=== PATIENT | male | born 1950 | race Caucasian/White ===

== ENCOUNTER → 2017-01-17 | Outpatient (CLI) | payer MEDICARE, OTHER ==
[~2017-01-17] MED LIST: /AMIO20TA PO; /LINE60TA PO; /METO25TAB PO; /PANT40TA PO; ACET50TA PO; ACETAMINOPHEN PO; ALDA25TA2 PO; BISAC5TA PO; CARA1TAB2 PO; DEMA20TA PO; HYDROCODONE PO; LEVO175T PO; LEVO200T3 PO; META800T82 PO; METAPKT PO; MOBI15TA PO; NORCOBULK PO; TYLE325T5 PO; XARE15TA PO; lortab
[2017-01-17 18:16] LABS: CREATININE FOR GFR 1.67 MG/DL (0.70-1.30)
== END ==
LOC: M LAB 16:18
PROVIDERS: ATTEND Podiatrist Foot & Ankle Surgery
DX: Z01.818 Encounter for other preprocedural examination (principal); M79.671 Pain in right foot

== ENCOUNTER → 2017-01-18 | Outpatient (CLI) | payer MEDICARE, OTHER ==
--- NOTE | 2017-01-18 16:11 | REP ---
MRI RIGHT FOOT WITHOUT AND WITH CONTRAST: 01/18/2017. Clinical history: Right foot pain and swelling laterally and dorsally. Evaluate for gout versus stress fracture or other. No known injury. No prior study. Technique: Axial T1 and fat suppressed T1, T2 STIR, sagittal T2 STIR and coronal T1 and T2 STIR sequences. After infusion of 13 ml of ProHance (one half-dose due to GFR of 44), fat suppressed T1 axial and coronal images were then obtained. Findings: There is subcutaneous edema particularly dorsally and laterally in the entire foot. There is also edema around the fifth toe and the distal plantar aspect of the foot from MTP joints into the toes. On the STIR images, the marrow signal in the distal tibia, fibula, talus, calcaneus and the tarsal bones is unremarkable. Subtalar joints are intact. The marrow signal in the T1 images show no evidence for edema or fracture line. There is no compelling evidence for stress fracture on any of these sequences. No abnormal enhancement of marrow that would suggest osteomyelitis. However, there is enhancement in the periosteal regions about the metatarsals, the third, fourth and fifth digital ray and some enhancement of capsule around tarsal articulations. I do not see erosions that would definitely suggest gout or erosive arthritis. The toe images are not optimal. There is no compelling evidence for abscess. Impression: 1. Extensive subcutaneous edema of the dorsal and lateral midfoot and distal forefoot with plantar edema over the metatarsal phalangeal joints and into the toes. Edema also along the midfoot adjacent to the shafts of the metatarsals three through five. No definite stress fracture, destructive lesion, osteomyelitis, abscess or other fluid collection. The edema may reflect some cellulitis or other inflammatory process. No definite erosive change or gout. Signed by Eduardo Phillips MD 01/18/2017 05:10 P
== END ==
LOC: M RAD 12:41
PROVIDERS: ATTEND Podiatrist Foot & Ankle Surgery
DX: M79.671 Pain in right foot (principal)
CPT/HCPCS: 73720; A9576

== ENCOUNTER → 2017-01-24 | Outpatient (CLI) | payer MEDICARE, OTHER | LOC: M LAB 14:40 | PROVIDERS: ATTEND Podiatrist Foot & Ankle Surgery | DX: M10.071 Idiopathic gout, right ankle and foot (principal) ==

== ENCOUNTER → 2017-05-06 | Outpatient (REF) | payer MEDICARE, OTHER ==
[2017-05-06 20:04] LABS: BILIRUBIN,TOTAL 0.4 MG/DL (0.2-1.0); CREATININE FOR GFR 1.6 MG/DL (0.70-1.30); FREE T4 1.25 NG/DL (0.76-1.46); GLOMERULAR FILTRATION RATE 46.3 (>49); URIC ACID 10.5 MG/DL (3.5-7.2)
[2017-05-06 20:24] LABS: MEAN CORPUSCULAR HEMOGLOBIN 29.3 pg (27.0-33.0); MEAN CORPUSCULAR HGB CONC 32.4 g/dl (32.0-36.5); MEAN CORPUSCULAR VOLUME 90.5 fl (80.0-96.0); RED CELL DISTRIBUTION WIDTH 13.9 % (11.5-14.5); WHITE BLOOD COUNT 7.3 K/mm3 (4.0-10.0)
== END ==
LOC: M SFHCADAM 11:35
PROVIDERS: ATTEND Family Medicine
DX: N18.3 Chronic kidney disease, stage 3 (moderate) (principal); E03.9 Hypothyroidism, unspecified; E78.2 Mixed hyperlipidemia; M19.90 Unspecified osteoarthritis, unspecified site

== ENCOUNTER → 2017-06-28 | Outpatient (CLI) | payer MEDICARE, OTHER ==
[2017-06-28 10:13] LABS: MEAN CORPUSCULAR HEMOGLOBIN 29.3 pg (27.0-33.0); MEAN CORPUSCULAR HGB CONC 33.4 g/dl (32.0-36.5); MEAN CORPUSCULAR VOLUME 87.5 fl (80.0-96.0); RED CELL DISTRIBUTION WIDTH 13.7 % (11.5-14.5); WHITE BLOOD COUNT 10.1 K/mm3 (4.0-10.0)
[2017-06-28 10:41] LABS: ALBUMIN 3.5 GM/DL (3.2-5.2); CREATININE FOR GFR 1.52 MG/DL (0.70-1.30); FREE T4 1.39 NG/DL (0.76-1.46); GLOMERULAR FILTRATION RATE 49.1 (>49); PHOSPHORUS LEVEL 3.3 MG/DL (2.5-4.9); POTASSIUM SERUM 3.8 MEQ/L (3.5-5.1); URIC ACID 6.3 MG/DL (3.5-7.2)
== END ==
LOC: M LAB 09:25
PROVIDERS: ATTEND Family Medicine
DX: E03.9 Hypothyroidism, unspecified (principal); M10.00 Idiopathic gout, unspecified site

== ENCOUNTER → 2017-07-01 | Outpatient (CLI) | payer MEDICARE, OTHER ==
--- NOTE | 2017-07-01 15:55 | REP ---
Digital diagnostic bilateral mammography with CAD and focused left breast sonography: History: 66-year-old male patient with a history of left breast mass times 6 weeks. The patient gives an additional history of left breast nipple bleeding 10 years ago resulting in surgery. Mammographic findings: A skin marker is affixed to the skin at the site of the palpable lump and CC MLO and true MLO views of left breast were obtained. Routine CC and MLO views of the right breast were obtained. On the right there is a heterogeneous pattern of fibroglandular tissue in the retroareolar region consistent with moderate gynecomastia of the right breast. No right breast mass lesion is seen. No spiculation or microcalcification is observed. No worrisome skin change is seen on the right. There are normal appearing fat replaced lymph nodes in each axilla. On the left however, there is a spiculated 2.8 cm mass in the retroareolar region of the left breast. On magnified focal spot compression ML and on MLO views there is the suggestion of nipple inversion and periareolar skin thickening. No suspicious microcalcification is observed. Sonographic findings: The left breast is examined in the retroareolar region. A hypoechoic spiculated mass is seen measuring 2.7 x 2.6 x 1.7 cm with irregular margins and acoustic shadowing. Impression: BIRADS category four suspicious left breast imaging. Spiculated 2.8 cm mass in the retroareolar region. Infiltrating ductal carcinoma suspected. A radial scar may be a possibility given the history of remote prior breast surgery. Ultrasound-guided needle biopsy is recommended. BIRADS category II benign right breast mammogram showing evidence of gynecomastia. This mammogram was interpreted with the aid of an FDA-approved computer-aided detection system. The patient states he a clinical breast exam in June 2017. The patient letter being requested is M4. Signed by Kodak Clifford MD 07/01/2017 04:39 P
== END ==
LOC: M RAD 14:03
PROVIDERS: ATTEND Family Medicine
DX: N63 Unspecified lump in breast (principal)
CPT/HCPCS: 76642; G0204

== ENCOUNTER → 2017-08-02 | Outpatient (REF) | payer MEDICARE, OTHER ==
[2017-08-02 12:40] LABS: MEAN CORPUSCULAR HEMOGLOBIN 28.7 pg (27.0-33.0); MEAN CORPUSCULAR HGB CONC 31.5 g/dl (32.0-36.5); MEAN CORPUSCULAR VOLUME 91.1 fl (80.0-96.0); RED CELL DISTRIBUTION WIDTH 14.6 % (11.5-14.5); WHITE BLOOD COUNT 10.9 10^3/uL (4.0-10.0)
[2017-08-02 13:56] LABS: CALCIUM LEVEL 9.2 MG/DL (8.8-10.2); CREATININE FOR GFR 1.53 MG/DL (0.70-1.30); FREE T4 1.55 NG/DL (0.76-1.46); GLOMERULAR FILTRATION RATE 48.7 (>49); POTASSIUM SERUM 4.2 MEQ/L (3.5-5.1)
== END ==
LOC: M SFHCADAM 09:45
PROVIDERS: ATTEND Family Medicine
DX: I50.9 Heart failure, unspecified (principal); F43.22 Adjustment disorder with anxiety

== ENCOUNTER → 2017-08-16 | Outpatient (CLI) | payer MEDICARE, OTHER ==
[2017-08-16 13:20] LABS: CALCIUM LEVEL 9.2 MG/DL (8.8-10.2); CREATININE FOR GFR 1.74 MG/DL (0.70-1.30)
== END ==
LOC: M LAB 12:06
PROVIDERS: ATTEND Family Medicine
DX: I50.9 Heart failure, unspecified (principal)

== ENCOUNTER → 2017-09-05 | Outpatient (CLI) | payer MEDICARE, OTHER ==
[2017-09-05 12:56] LABS: CALCIUM LEVEL 8.9 MG/DL (8.8-10.2); CREATININE FOR GFR 1.44 MG/DL (0.70-1.30); GLOMERULAR FILTRATION RATE 52.3 (>49); POTASSIUM SERUM 3.9 MEQ/L (3.5-5.1)
== END ==
LOC: M LAB 11:58
PROVIDERS: ATTEND Family Medicine
DX: I50.9 Heart failure, unspecified (principal)

== ENCOUNTER → 2017-09-08 | Outpatient (REF) | payer MEDICARE, OTHER | LOC: M LAB REF 16:55 | PROVIDERS: ATTEND Internal Medicine Nephrology | DX: N39.0 Urinary tract infection, site not specified (principal) ==

== ENCOUNTER 2017-10-25 12:41 | Emergency (ER) | payer MEDICARE, OTHER ==
[2017-10-25] MEDS: NS 1,000 ML IV (14:30)
[2017-10-25] MEDS: methylPREDNISolone INJ 125 MG/2 ML VIAL (J2930) IV (14:30)
== END 2017-10-25 16:31 | disposition home or self-care (01) ==
LOC: M ED 12:41
DX: R42 Dizziness and giddiness (principal); T45.1X5A Adverse effect of antineoplastic and immunosuppressive drugs, initial encounter; I12.9 Hypertensive chronic kidney disease with stage 1 through stage 4 chronic kidney disease, or unspecified chronic kidney disease; Z79.01 Long term (current) use of anticoagulants; N18.3 Chronic kidney disease, stage 3 (moderate); C61 Malignant neoplasm of prostate; Z87.891 Personal history of nicotine dependence
CPT/HCPCS: J2930

== ENCOUNTER → 2017-11-25 | Outpatient (CLI) | payer MEDICARE, OTHER | LOC: M CARPUL 10:28 | DX: I50.30 Unspecified diastolic (congestive) heart failure (principal); Z92.21 Personal history of antineoplastic chemotherapy | CPT/HCPCS: 93306 ==

== ENCOUNTER → 2017-12-12 | Outpatient (REF) | payer MEDICARE, OTHER ==
[2017-12-12 12:42] LABS: ANION GAP 9 MEQ/L (8-16); BLOOD UREA NITROGEN 28 MG/DL (7-18); CALCIUM LEVEL 8.4 MG/DL (8.8-10.2); CARBON DIOXIDE LEVEL 28 MEQ/L (21-32); CHLORIDE LEVEL 104 MEQ/L (98-107); CREATININE FOR GFR 1.58 MG/DL (0.70-1.30); GLOMERULAR FILTRATION RATE 46.8 (>49); GLUCOSE, FASTING 143 MG/DL (70-100); POTASSIUM SERUM 3.6 MEQ/L (3.5-5.1); SODIUM LEVEL 141 MEQ/L (136-145)
== END ==
LOC: M SFHCADAM 11:14
DX: Z79.899 Other long term (current) drug therapy (principal); I50.9 Heart failure, unspecified
CPT/HCPCS: 80048

== ENCOUNTER → 2017-12-15 | Outpatient (CLI) | payer MEDICARE, OTHER | LOC: M ONCR 10:04 | DX: C50.922 Malignant neoplasm of unspecified site of left male breast (principal) | CPT/HCPCS: G0463 ==

== ENCOUNTER 2018-01-05 09:29 | Outpatient (RCR) | payer MEDICARE, OTHER | END 2018-01-21 | LOC: M ONCR 09:29 | DX: C50.122 Malignant neoplasm of central portion of left male breast (principal) | CPT/HCPCS: 77300 ==

== ENCOUNTER → 2018-01-05 | Outpatient (CLI) | payer MEDICARE, OTHER | LOC: M RAD 09:23 | DX: C50.922 Malignant neoplasm of unspecified site of left male breast (principal) ==

== ENCOUNTER 2018-01-23 10:53 | Outpatient (RCR) | payer MEDICARE, OTHER | END 2018-02-20 | LOC: M ONCR 10:53 | DX: C50.122 Malignant neoplasm of central portion of left male breast (principal) | CPT/HCPCS: 77336 ==

== ENCOUNTER → 2018-02-08 | Outpatient (REF) | payer MEDICARE, OTHER ==
[2018-02-08 19:52] LABS: HEMATOCRIT 33.7 % (42.0-52.0); HEMOGLOBIN 10.2 g/dl (13.5-17.5); MEAN CORPUSCULAR HEMOGLOBIN 28.3 pg (27.0-33.0); MEAN CORPUSCULAR HGB CONC 30.3 g/dl (32.0-36.5); MEAN CORPUSCULAR VOLUME 93.6 fl (80.0-96.0); PLATELET COUNT, AUTOMATED 272 10^3/uL (150-450); RED CELL DISTRIBUTION WIDTH 17.9 % (11.5-14.5); WHITE BLOOD COUNT 7.7 10^3/uL (4.0-10.0)
[2018-02-08 20:13] LABS: ALBUMIN 3.5 GM/DL (3.2-5.2); ALBUMIN/GLOBULIN RATIO 0.88 (1.00-1.93); ALKALINE PHOSPHATASE 64 U/L (45-117); ALT/SGPT 19 U/L (12-78); ANION GAP 9 MEQ/L (8-16); AST/SGOT 13 U/L (7-37); BILIRUBIN,TOTAL 0.3 MG/DL (0.2-1.0); BLOOD UREA NITROGEN 34 MG/DL (7-18); CALCIUM LEVEL 8.6 MG/DL (8.8-10.2); CARBON DIOXIDE LEVEL 29 MEQ/L (21-32); CHLORIDE LEVEL 103 MEQ/L (98-107); CREATININE FOR GFR 1.56 MG/DL (0.70-1.30); GLOMERULAR FILTRATION RATE 47.5 (>49); GLUCOSE, FASTING 88 MG/DL (70-100); NT-PRO BNP 605 PG/ML (<125); POTASSIUM SERUM 3.9 MEQ/L (3.5-5.1); SODIUM LEVEL 141 MEQ/L (136-145); TOTAL PROTEIN 7.5 GM/DL (6.4-8.2)
== END ==
LOC: M SFHCADAM 16:45
DX: R06.09 Other forms of dyspnea (principal)
CPT/HCPCS: 80053

== ENCOUNTER → 2018-02-09 | Outpatient (CLI) | payer MEDICARE, OTHER | LOC: M RAD 14:46 | DX: M53.3 Sacrococcygeal disorders, not elsewhere classified (principal); Z85.3 Personal history of malignant neoplasm of breast; R06.09 Other forms of dyspnea; M51.36 Other intervertebral disc degeneration, lumbar region; J84.9 Interstitial pulmonary disease, unspecified | CPT/HCPCS: 71046 ==

== ENCOUNTER 2018-02-21 14:18 | Outpatient (RCR) | payer MEDICARE, OTHER | END 2018-03-02 15:24 | disposition other institution (70) | LOC: M ONCR 14:18 | DX: C50.122 Malignant neoplasm of central portion of left male breast (principal) ==

== ENCOUNTER 2018-03-06 14:36 | Outpatient (RCR) | payer MEDICARE, OTHER | END 2018-03-23 | LOC: M ONCR 03-07 14:36 | DX: C50.122 Malignant neoplasm of central portion of left male breast (principal) | CPT/HCPCS: 77300 ==

== ENCOUNTER → 2018-03-15 | Outpatient (REF) | payer MEDICARE, OTHER ==
[2018-03-15 12:31] LABS: HEMATOCRIT 33.3 % (42.0-52.0); HEMOGLOBIN 10.2 g/dl (13.5-17.5); MEAN CORPUSCULAR HEMOGLOBIN 28.9 pg (27.0-33.0); MEAN CORPUSCULAR HGB CONC 30.6 g/dl (32.0-36.5); MEAN CORPUSCULAR VOLUME 94.3 fl (80.0-96.0); PLATELET COUNT, AUTOMATED 366 10^3/uL (150-450); RED BLOOD COUNT 3.53 10^6/uL (4.30-6.10); RED CELL DISTRIBUTION WIDTH 15.5 % (11.5-14.5); WHITE BLOOD COUNT 7.5 10^3/uL (4.0-10.0)
[2018-03-15 13:09] LABS: ALBUMIN 3.3 GM/DL (3.2-5.2); ALKALINE PHOSPHATASE 70 U/L (45-117); ALT/SGPT 33 U/L (12-78); ANION GAP 7 MEQ/L (8-16); AST/SGOT 19 U/L (7-37); BILIRUBIN,TOTAL 0.3 MG/DL (0.2-1.0); BLOOD UREA NITROGEN 29 MG/DL (7-18); CALCIUM LEVEL 8.8 MG/DL (8.8-10.2); CARBON DIOXIDE LEVEL 30 MEQ/L (21-32); CHLORIDE LEVEL 104 MEQ/L (98-107); CREATININE FOR GFR 1.49 MG/DL (0.70-1.30); GLOMERULAR FILTRATION RATE 50.1 (>49); GLUCOSE, FASTING 128 MG/DL (70-100); POTASSIUM SERUM 4.2 MEQ/L (3.5-5.1); SODIUM LEVEL 141 MEQ/L (136-145); TOTAL PROTEIN 7.4 GM/DL (6.4-8.2)
== END ==
LOC: M SFHCADAM 10:07
DX: N39.0 Urinary tract infection, site not specified (principal); I50.9 Heart failure, unspecified
CPT/HCPCS: 80053

== ENCOUNTER → 2018-04-19 | Outpatient (REF) | payer MEDICARE, OTHER ==
[2018-04-19 13:01] LABS: HEMOGLOBIN 10.8 g/dl (13.5-17.5); MEAN CORPUSCULAR HEMOGLOBIN 28.2 pg (27.0-33.0); MEAN CORPUSCULAR HGB CONC 30.9 g/dl (32.0-36.5); MEAN CORPUSCULAR VOLUME 91.4 fl (80.0-96.0); PLATELET COUNT, AUTOMATED 250 10^3/uL (150-450); RED BLOOD COUNT 3.83 10^6/uL (4.30-6.10); RED CELL DISTRIBUTION WIDTH 15.9 % (11.5-14.5); WHITE BLOOD COUNT 7.7 10^3/uL (4.0-10.0)
[2018-04-19 13:24] LABS: VITAMIN B12 LEVEL 546 PG/ML (247-911)
[2018-04-19 13:25] LABS: FOLATE 20.9 NG/ML (>5.4)
[2018-04-19 13:29] LABS: ALBUMIN 3.4 GM/DL (3.2-5.2); ALBUMIN/GLOBULIN RATIO 0.83 (1.00-1.93); ALKALINE PHOSPHATASE 66 U/L (45-117); ALT/SGPT 23 U/L (12-78); ANION GAP 7 MEQ/L (8-16); AST/SGOT 13 U/L (7-37); BILIRUBIN,TOTAL 0.3 MG/DL (0.2-1.0); BLOOD UREA NITROGEN 38 MG/DL (7-18); CALCIUM LEVEL 8.4 MG/DL (8.8-10.2); CARBON DIOXIDE LEVEL 29 MEQ/L (21-32); CHLORIDE LEVEL 104 MEQ/L (98-107); CREATININE FOR GFR 1.66 MG/DL (0.70-1.30); FREE T4 1.26 NG/DL (0.76-1.46); GLOMERULAR FILTRATION RATE 44.2 (>49); GLUCOSE, FASTING 114 MG/DL (70-100); POTASSIUM SERUM 4.3 MEQ/L (3.5-5.1); SODIUM LEVEL 140 MEQ/L (136-145); TOTAL PROTEIN 7.5 GM/DL (6.4-8.2)
== END ==
LOC: M SFHCADAM 10:53
DX: E03.9 Hypothyroidism, unspecified (principal); R53.83 Other fatigue
CPT/HCPCS: 82746

== ENCOUNTER → 2018-04-27 | Outpatient (CLI) | payer MEDICARE, OTHER | LOC: M ONCR 13:22 | DX: C61 Malignant neoplasm of prostate (principal) | CPT/HCPCS: G0463 ==

== ENCOUNTER → 2018-04-27 | Outpatient (CLI) | payer MEDICARE, OTHER | LOC: M RAD 13:50 | DX: N18.3 Chronic kidney disease, stage 3 (moderate) (principal); Z87.440 Personal history of urinary (tract) infections | CPT/HCPCS: 76775 ==

== ENCOUNTER → 2018-05-02 | Outpatient (CLI) | payer MEDICARE, OTHER | LOC: M PLARAD 11:25 | DX: C79.9 Secondary malignant neoplasm of unspecified site (principal); Z85.3 Personal history of malignant neoplasm of breast; N13.30 Unspecified hydronephrosis; K80.00 Calculus of gallbladder with acute cholecystitis without obstruction; N62 Hypertrophy of breast | CPT/HCPCS: 78816 ==

== ENCOUNTER → 2018-05-26 | Outpatient (CLI) | payer MEDICARE, OTHER | LOC: M RAD 12:21 | DX: H53.9 Unspecified visual disturbance (principal) | CPT/HCPCS: 93880 ==

== ENCOUNTER → 2018-06-05 | Outpatient (CLI) | payer MEDICARE, OTHER ==
[~2018-06-05] MED LIST changes: -/AMIO20TA PO; -/LINE60TA PO; -/METO25TAB PO; -/PANT40TA PO; -ACET50TA PO; -ACETAMINOPHEN PO; -ALDA25TA2 PO; -BISAC5TA PO; -CARA1TAB2 PO; -DEMA20TA PO; +FUROSEMIDE 20 MG/2 ML VIAL (J1940) As Ordered; -HYDROCODONE PO; -LEVO175T PO; -LEVO200T3 PO; -META800T82 PO; -METAPKT PO; -MOBI15TA PO; -NORCOBULK PO; -TYLE325T5 PO; -XARE15TA PO; -lortab
== END ==
LOC: M RAD 09:42
DX: N13.30 Unspecified hydronephrosis (principal)
CPT/HCPCS: J1940

== ENCOUNTER → 2018-07-18 | Outpatient (CLI) | payer MEDICARE, OTHER | LOC: M RAD 11:02 | DX: N18.3 Chronic kidney disease, stage 3 (moderate) (principal); M10.00 Idiopathic gout, unspecified site; Z90.10 Acquired absence of unspecified breast and nipple; Z85.3 Personal history of malignant neoplasm of breast | CPT/HCPCS: 77065 ==

== ENCOUNTER → 2018-07-18 | Outpatient (CLI) | payer MEDICARE, OTHER ==
[2018-07-18 11:25] LABS: HEMATOCRIT 39.2 % (42.0-52.0); HEMOGLOBIN 12.2 g/dl (13.5-17.5); MEAN CORPUSCULAR HEMOGLOBIN 29.2 pg (27.0-33.0); MEAN CORPUSCULAR HGB CONC 31.1 g/dl (32.0-36.5); MEAN CORPUSCULAR VOLUME 93.8 fl (80.0-96.0); PLATELET COUNT, AUTOMATED 237 10^3/uL (150-450); RED BLOOD COUNT 4.18 10^6/uL (4.30-6.10); RED CELL DISTRIBUTION WIDTH 15.4 % (11.5-14.5); WHITE BLOOD COUNT 7.5 10^3/uL (4.0-10.0)
[2018-07-18 12:20] LABS: ANION GAP 10 MEQ/L (8-16); BLOOD UREA NITROGEN 35 MG/DL (7-18); CALCIUM LEVEL 8.5 MG/DL (8.8-10.2); CARBON DIOXIDE LEVEL 27 MEQ/L (21-32); CHLORIDE LEVEL 103 MEQ/L (98-107); CREATININE FOR GFR 1.77 MG/DL (0.70-1.30); GLOMERULAR FILTRATION RATE 41.1 (>49); GLUCOSE, FASTING 101 MG/DL (70-100); POTASSIUM SERUM 4.6 MEQ/L (3.5-5.1); SODIUM LEVEL 140 MEQ/L (136-145); URIC ACID 5.3 MG/DL (3.5-7.2)
== END ==
LOC: M LAB 10:46
DX: N18.3 Chronic kidney disease, stage 3 (moderate) (principal); M10.00 Idiopathic gout, unspecified site

== ENCOUNTER → 2018-11-13 | Outpatient (CLI) | payer MEDICARE, OTHER ==
[~2018-11-13] MED LIST changes: +/AMIO20TA PO; +/LINE60TA PO; +/METO25TAB PO; +/PANT40TA PO; +ACET50TA PO; +ACETAMINOPHEN PO; +ALDA25TA2 PO; +AMMO12CR4 TOP; +AMOX500C PO; +BENA25CA4 PO; +BISAC5TA PO; +CARA1TAB2 PO; +DEMA20TA PO; +FERR1TAB8 PO; +FERRO SEQUELS PO; -FUROSEMIDE 20 MG/2 ML VIAL (J1940) As Ordered; +GABA-843 PO; +GABA600T4 PO; +HYDR-3716 PO; +HYDROCODONE PO; +LEVO175T PO; +LEVO200T3 PO; +LEVO200T4 PO; +META1TAB22 PO; +META800T82 PO; +METAPKT PO; +METO25TA4 PO; +MOBI15TA PO; +NORCOBULK PO; +PANT40TA3 PO; +PROAAER10 INH; +SILV40CR EXT; +SPIR-10 PO; +SUCR1TAB56 PO; +SYNT50TA PO; +TAMO20TA8 PO; +TORS20TA2 PO; +TYLE325T5 PO; +ULOR80TA PO; +VITA200016 PO; +VITMTA PO; +XARE15TA PO; +lortab
[2018-11-13 14:38] LABS: HEMATOCRIT 43.1 % (42.0-52.0); HEMOGLOBIN 13.4 g/dl (13.5-17.5); MEAN CORPUSCULAR HEMOGLOBIN 29.5 pg (27.0-33.0); MEAN CORPUSCULAR HGB CONC 31.1 g/dl (32.0-36.5); MEAN CORPUSCULAR VOLUME 94.9 fl (80.0-96.0); PLATELET COUNT, AUTOMATED 236 10^3/uL (150-450); RED BLOOD COUNT 4.54 10^6/uL (4.30-6.10); WHITE BLOOD COUNT 8.1 10^3/uL (4.0-10.0)
[2018-11-13 15:19] LABS: BILIRUBIN,TOTAL 0.4 MG/DL (0.2-1.0); CALCIUM LEVEL 8.8 MG/DL (8.8-10.2); CREATININE FOR GFR 1.51 MG/DL (0.70-1.30); GLOMERULAR FILTRATION RATE 49.2 (>49); POTASSIUM SERUM 4.6 MEQ/L (3.5-5.1)
[2018-11-13 15:20] LABS: ALBUMIN 3.8 GM/DL (3.2-5.2); CHOLESTEROL RISK RATIO 4.775 (<5); FREE T4 1.25 NG/DL (0.76-1.46); THYROID STIMULATING HORMONE 3.03 uIU/ML (0.358-3.740); TOTAL PROTEIN 7.8 GM/DL (6.4-8.2)
== END ==
LOC: M LAB 14:15
PROVIDERS: ATTEND Family Medicine
DX: N18.3 Chronic kidney disease, stage 3 (moderate) (principal); Z79.899 Other long term (current) drug therapy

== ENCOUNTER → 2018-12-13 | Outpatient (CLI) | payer MEDICARE, OTHER ==
--- NOTE | 2018-12-14 10:48 | RADONC ---
RADIATION ONCOLOGY FOLLOWUP NOTE DATE: 12/13/2018 CHART NUMBER: [id number] Mr. Quiñones is a patient with a history of both prostatic cancer and left breast cancer was treated this department for left breast cancer which was in the initially staged T2N1M0/ group Stage IIB. He continues to do well after completing his radiotherapy, he denies any nausea, vomiting, sputum production or hemoptysis. His energy level is diminished but he is still able to do day-to-day activities without significantly altering his lifestyle. The remainder of the review of systems is essentially negative as he denies any focal neurologic deficits, headache, respiratory difficulties, cardiac issues, abdominal pain, anxiety or depression. EXAMINATION FINDINGS: The skin within the irradiated volume shows still some hyperpigmentation and subcutaneous fibrosis without masses. There are no masses in the right or the left breast. Lymphatics - no palpable peripheral lymphadenopathy is appreciated in the cervical, supraclavicular, axillary, inguinal lymph node chains. Heart regular without murmurs. Abdomen without evidence of hepatomegaly, masses, deep abdominal tenderness. Extremities without cyanosis, clubbing or edema. IMPRESSION: Clinically CANDI. Status post completion of external beam radiotherapy. The patient wishes to continue followup visit visits with Dr. Audrey Moore. He feels that the visitations here may indeed be repetitious. He will not receive a return appointment at his request. Thank you for allowing us the opportunity of participation in the management of this patient. cc: MD Carolyn Arauz PA Joseph Wetterhahn, MD Jessica Young, MD
== END ==
LOC: M ONCR 09:13
PROVIDERS: ATTEND Radiology Radiation Oncology
DX: C50.922 Malignant neoplasm of unspecified site of left male breast (principal)

== ENCOUNTER → 2019-03-12 | Outpatient (CLI) | payer MEDICARE, OTHER ==
[~2019-03-12] MED LIST changes: -/AMIO20TA PO; -/LINE60TA PO; -/METO25TAB PO; -/PANT40TA PO; -ACET50TA PO; +AMIO1TAB PO; -AMMO12CR4 TOP; +AMMO12CR7 TOP; +KONS100P4 PO; +MAPA500T17 PO; -METAPKT PO; +METO1TAB87 PO; +PROT1TAB2 PO; +ZYVO100T PO
[2019-03-12 19:28] LABS: MAGNESIUM LEVEL 2.4 MG/DL (1.8-2.4)
== END ==
LOC: M LAB 12:53
PROVIDERS: ATTEND Internal Medicine Gastroenterology
DX: Z86.010 Personal history of colon polyps (principal); R10.13 Epigastric pain; K21.0 Gastro-esophageal reflux disease with esophagitis; C61 Malignant neoplasm of prostate

== ENCOUNTER → 2019-03-12 | Outpatient (CLI) | payer MEDICARE, OTHER | LOC: M LAB 12:51 | PROVIDERS: ATTEND Urology | DX: C61 Malignant neoplasm of prostate (principal) ==

== ENCOUNTER → 2019-03-22 | Outpatient (REF) | payer MEDICARE, OTHER ==
[2019-03-22 18:23] LABS: CREATININE FOR GFR 1.58 MG/DL (0.70-1.30); GLOMERULAR FILTRATION RATE 46.7 (>49); POTASSIUM SERUM 4.3 MEQ/L (3.5-5.1)
== END ==
LOC: M SFHCADAM 14:33
PROVIDERS: ATTEND Family Medicine
DX: I50.9 Heart failure, unspecified (principal)
CPT/HCPCS: 80048; 83880; G0463

== ENCOUNTER → 2019-06-29 | Outpatient (REF) | payer MEDICARE, OTHER ==
[2019-06-29 12:51] LABS: HEMATOCRIT 39.9 % (42.0-52.0); HEMOGLOBIN 12.4 g/dl (13.5-17.5); MEAN CORPUSCULAR HEMOGLOBIN 29.5 pg (27.0-33.0); MEAN CORPUSCULAR HGB CONC 31.1 g/dl (32.0-36.5); PLATELET COUNT, AUTOMATED 246 10^3/uL (150-450)
[2019-06-29 13:29] LABS: ALBUMIN 3.4 GM/DL (3.2-5.2); ALT/SGPT 21 U/L (12-78); BILIRUBIN,TOTAL 0.3 MG/DL (0.2-1.0); BLOOD UREA NITROGEN 40 MG/DL (7-18); CALCIUM LEVEL 8.8 MG/DL (8.8-10.2); CARBON DIOXIDE LEVEL 31 MEQ/L (21-32); CHLORIDE LEVEL 105 MEQ/L (98-107); CHOLESTEROL LEVEL 155 MG/DL (<200); CHOLESTEROL RISK RATIO 4.189 (<5); CREATININE FOR GFR 1.49 MG/DL (0.70-1.30); FREE T4 1.14 NG/DL (0.76-1.46); GLOMERULAR FILTRATION RATE 49.9 (>49); GLUCOSE, FASTING 108 MG/DL (70-100); HDL CHOLESTEROL 37 MG/DL (>40); LDL CHOLESTEROL 65 MG/DL (<100); NON-HDL-C 118 MG/DL; POTASSIUM SERUM 4.3 MEQ/L (3.5-5.1); PROSTATIC SPECIFIC AG MONITOR < 0.01 NG/ML (< 4.00); SODIUM LEVEL 141 MEQ/L (136-145); TOTAL PROTEIN 6.5 GM/DL (6.4-8.2); TRIGLYCERIDES LEVEL 265 MG/DL (<150); URIC ACID 5.1 MG/DL (3.5-7.2)
== END ==
LOC: M SFHCADAM 08:05
PROVIDERS: ATTEND Family Medicine
DX: I48.0 Paroxysmal atrial fibrillation (principal); N18.3 Chronic kidney disease, stage 3 (moderate); E03.9 Hypothyroidism, unspecified; E78.2 Mixed hyperlipidemia; M10.00 Idiopathic gout, unspecified site; C61 Malignant neoplasm of prostate
CPT/HCPCS: 80053; 80061; 84153; 84439; 84443; 84550; 85027; G0463

== ENCOUNTER → 2019-07-19 | Outpatient (CLI) | payer MEDICARE, OTHER ==
--- NOTE | 2019-07-19 12:05 | REPMRS ---
Patient History The patient states she had a clinical breast exam in February 2019.Patient has history of cancer in the left breast at age 66, has history of other cancer at age 56, has history of breast cancer, and had previous chemotherapy. Benign lumpectomy of the left breast, 2007. Malignant mastectomy of the left breast. Chemotherapy. Radiation therapy of the left breast. Taking tamoxifen for 1 year. Digital Mammo Screening Bilat: July 19, 2019 - Exam #: [id number] Bilateral CC and MLO view(s) were taken. Technologist: Leesa Oliver, Technologist Prior study comparison: July 18, 2018, right breast digital mammo diagnostic unilateral performed at [facility]. July 01, 2017, left breast digital mammo diagnostic bilateral performed at [facility]. FINDINGS: There are scattered fibroglandular densities. There has been no change in the appearance of the right breast parenchyma in the interval since the prior examination. No mass, architectural distortion, or microcalcific grouping has developed. No suspicious finding. 3-D tomosynthesis shows no additional findings. Assessment: BI-RADS/ACR category 2 mammogram. Benign Findings. Recommendation Routine screening mammogram of the right breast in 1 year. This mammogram was interpreted with the aid of an FDA-approved computer-aided dectection system. Electronically Signed By: Charles Clifford MD 07/19/19 [id number]
== END ==
LOC: M RAD 10:46
PROVIDERS: ATTEND Internal Medicine Medical Oncology
DX: Z12.31 Encounter for screening mammogram for malignant neoplasm of breast (principal); Z85.3 Personal history of malignant neoplasm of breast; Z92.21 Personal history of antineoplastic chemotherapy; Z90.12 Acquired absence of left breast and nipple; Z92.3 Personal history of irradiation

== ENCOUNTER → 2020-04-10 | Outpatient (REF) | payer MEDICARE, OTHER | LOC: M LABDRWAD 12:42 | DX: C61 Malignant neoplasm of prostate (principal) ==

== ENCOUNTER → 2020-04-10 | Outpatient (REF) | payer MEDICARE, OTHER ==
[2020-04-10 13:30] LABS: CREATININE FOR GFR 1.46 MG/DL (0.70-1.30)
== END ==
LOC: M LABDRWAD 12:44
PROVIDERS: ATTEND Physician Assistant
DX: M51.37 Other intervertebral disc degeneration, lumbosacral region (principal); M17.12 Unilateral primary osteoarthritis, left knee; M47.817 Spondylosis without myelopathy or radiculopathy, lumbosacral region

== ENCOUNTER → 2020-05-05 | Outpatient (CLI) | payer MEDICARE, OTHER ==
[~2020-05-05] MED LIST changes: +PANT40TA29 PO; -PANT40TA3 PO; +PROHANCE 279.3MG/ML 15ML VIAL As Ordered ONE; +PROHANCE 279.3MG/ML 5ML VIAL As Ordered ONE
== END ==
LOC: M RAD 04-08 16:48
PROVIDERS: ATTEND Physician Assistant
DX: M51.37 Other intervertebral disc degeneration, lumbosacral region (principal); M47.817 Spondylosis without myelopathy or radiculopathy, lumbosacral region
CPT/HCPCS: 72158; A9576

== ENCOUNTER → 2020-05-06 | Outpatient (REF) | payer MEDICARE, OTHER ==
[~2020-05-06] MED LIST changes: -PROHANCE 279.3MG/ML 15ML VIAL As Ordered ONE; -PROHANCE 279.3MG/ML 5ML VIAL As Ordered ONE
[2020-05-06 19:12] LABS: HEMATOCRIT 42.4 % (42.0-52.0); HEMOGLOBIN 12.5 g/dl (13.5-17.5); MEAN CORPUSCULAR HEMOGLOBIN 27.7 pg (27.0-33.0); MEAN CORPUSCULAR HGB CONC 29.5 g/dl (32.0-36.5); MEAN CORPUSCULAR VOLUME 93.8 fl (80.0-96.0); PLATELET COUNT, AUTOMATED 218 10^3/uL (150-450); RED BLOOD COUNT 4.52 10^6/uL (4.30-6.10); WHITE BLOOD COUNT 8.4 10^3/uL (4.0-10.0)
[2020-05-06 19:54] LABS: ALBUMIN 3.4 GM/DL (3.2-5.2); ALT/SGPT 34 U/L (12-78); BILIRUBIN,TOTAL 0.4 MG/DL (0.2-1.0); BLOOD UREA NITROGEN 33 MG/DL (7-18); CALCIUM LEVEL 8.6 MG/DL (8.8-10.2); CARBON DIOXIDE LEVEL 30 MEQ/L (21-32); CHLORIDE LEVEL 104 MEQ/L (98-107); CHOLESTEROL LEVEL 137 MG/DL (<200); CHOLESTEROL RISK RATIO 3.805 (<5); CREATININE FOR GFR 1.44 MG/DL (0.70-1.30); FREE T4 1.69 NG/DL (0.76-1.46); GLOMERULAR FILTRATION RATE 51.8 (>49); GLUCOSE, FASTING 84 MG/DL (70-100); HDL CHOLESTEROL 36 MG/DL (>40); LDL CHOLESTEROL 62 MG/DL (<100); NON-HDL-C 101 MG/DL; POTASSIUM SERUM 4.1 MEQ/L (3.5-5.1); PROSTATIC SPECIFIC AG MONITOR < 0.01 NG/ML (< 4.00); SODIUM LEVEL 142 MEQ/L (136-145); TRIGLYCERIDES LEVEL 196 MG/DL (<150)
== END ==
LOC: M SFHCADAM 15:51
PROVIDERS: ATTEND Family Medicine
DX: N18.3 Chronic kidney disease, stage 3 (moderate) (principal); E03.9 Hypothyroidism, unspecified; E78.2 Mixed hyperlipidemia; C61 Malignant neoplasm of prostate

== ENCOUNTER → 2020-05-09 | Outpatient (CLI) | payer MEDICARE, OTHER ==
--- NOTE | 2020-05-10 08:02 | REP ---
REASON: Dyspnea on exertion. COMPARISON EXAMINATIONS: 08/25/2016 and 08/02/2017. The cardiomediastinal silhouette is unchanged. The heart is not enlarged. There is mild lung field hyperexpansion, status quo. Mild bibasilar fibrotic changes are noted, status quo. No acute patchy parenchymal opacities or pleural effusions have developed. There is no significant change in appearance of the osseous structures. IMPRESSION: Stable appearing chronic changes. Electronically Signed by Jean Arthur DO 05/10/2020 09:12 A
== END ==
LOC: M ADAMS 16:09
PROVIDERS: ATTEND Family Medicine
DX: R06.00 Dyspnea, unspecified (principal)
CPT/HCPCS: 71046; G0463

== ENCOUNTER → 2020-06-16 | Outpatient (CLI) | payer MEDICARE, OTHER ==
--- NOTE | 2020-07-03 14:17 | PFTRPT ---
Height: 70.00 Inches Weight: 300.00 Lbs BSA: 2.48 Diagnosis: R06.2 DATE OF STUDY: 06/16/2020 ORDERING PHYSICIAN: Radha Han The study had excellent technical quality pre and post bronchodilator study. Forced vital capacity is reduced. FEV1 borderline in proportion .Obstructive index borderline as well. Flow volume loop does suggest significant dysfunction. No significant bronchodilator response identified. Total lung capacity reduced. Residual volume suggests concomitant air trapping. Diffusion capacity minimally reduced but is appropriate for alveolar volume and no hemoglobin available for correction. Airway resistance and conductance are normal. IMPRESSION: At least mild restrictive ventilatory impairment with concomitant air trapping. Please correlate clinically. MTDD
== END ==
LOC: M CARPUL 10:34
PROVIDERS: ATTEND Physician Assistant
DX: R94.2 Abnormal results of pulmonary function studies (principal); R06.2 Wheezing

== ENCOUNTER → 2020-07-04 | Outpatient (REF) | payer MEDICARE, OTHER ==
[2020-07-04 12:40] LABS: PLATELET COUNT, AUTOMATED 204 10^3/uL (150-450)
[2020-07-04 12:51] LABS: INR 1.29; PROTHROMBIN TIME 16.4 SECONDS (11.8-14.0)
[2020-07-04 12:52] LABS: PARTIAL THROMBOPLASTIN TIME 32.2 SECONDS (25.0-38.4)
[2020-07-04 13:08] LABS: COLLAGEN EPINEPHRINE 132 SECONDS (74-162)
== END ==
LOC: M LABDRWAD 12:32
PROVIDERS: ATTEND Physician Assistant
DX: M47.817 Spondylosis without myelopathy or radiculopathy, lumbosacral region (principal); Z79.51 Long term (current) use of inhaled steroids; Z79.899 Other long term (current) drug therapy

== ENCOUNTER → 2020-10-31 | Outpatient (REF) | payer MEDICARE, OTHER ==
[2020-10-31 13:44] LABS: HEMATOCRIT 44.2 % (42.0-52.0); MEAN CORPUSCULAR HGB CONC 29.4 g/dl (32.0-36.5); MEAN CORPUSCULAR VOLUME 98.7 fl (80.0-96.0); PLATELET COUNT, AUTOMATED 246 10^3/uL (150-450); RED BLOOD COUNT 4.48 10^6/uL (4.30-6.10); WHITE BLOOD COUNT 8.2 10^3/uL (4.0-10.0)
[2020-10-31 14:32] LABS: ALBUMIN 3.4 GM/DL (3.2-5.2); BILIRUBIN,TOTAL 0.3 MG/DL (0.2-1.0); CALCIUM LEVEL 8.7 MG/DL (8.8-10.2); CHOLESTEROL RISK RATIO 3.365 (<5); CREATININE FOR GFR 1.67 MG/DL (0.70-1.30); FREE T4 1.27 NG/DL (0.76-1.46); GLOMERULAR FILTRATION RATE 43.5 (>42); MAGNESIUM LEVEL 2.3 MG/DL (1.8-2.4); POTASSIUM SERUM 4.5 MEQ/L (3.5-5.1); THYROID STIMULATING HORMONE 4.24 uIU/ML (0.358-3.740); TOTAL 25(OH) VITAMIN D 36.7 NG/ML (30.0-100.0); TOTAL PROTEIN 6.5 GM/DL (6.4-8.2)
[2020-10-31 15:22] LABS: HEMOGLOBIN A1c 5.8 %
== END ==
LOC: M SFHCADAM 08:30
PROVIDERS: ATTEND Family Medicine
DX: I50.9 Heart failure, unspecified (principal); R06.00 Dyspnea, unspecified; N18.30 Chronic kidney disease, stage 3 unspecified; I48.0 Paroxysmal atrial fibrillation; R25.1 Tremor, unspecified; E03.9 Hypothyroidism, unspecified; R73.03 Prediabetes; M10.00 Idiopathic gout, unspecified site

== ENCOUNTER → 2020-11-19 | Outpatient (CLI) | payer MEDICARE, OTHER ==
[~2020-11-19] MED LIST changes: +GABA-282 PO; -GABA-843 PO
--- NOTE | 2020-11-19 15:51 | REP ---
INDICATION: DISC DISORDER. COMPARISON: Comparison study December 26, 2013.. TECHNIQUE: Eleven views presented. FINDINGS: There is chronic mild enlargement of the sella turcica noted incidentally unchanged from the 2014 prior study. There is straightening of the normal cervical lordosis. Lateral views done in flexion extension and neutral position show limits a bruno of flexion extension range of motion. And no subluxation or instability is seen. There is degenerative disc disease with disc space narrowing and large anterior osteophytes formed at C3-4 and C4-5. The C5-6 and C6-7 discs are fused. There is some discogenic spurring anteriorly at C7-T1. Swimmer's lateral view shows no additional abnormality. Open mouth odontoid view is demonstrates left-sided facet arthropathy at C2-3 but is otherwise unremarkable. There is some facet hypertrophy in the midcervical spine at the other levels as well on AP view. Oblique images demonstrate mild uncovertebral spurring on the right narrowing the C4-5 neural foramen and on the left at C3-4 and to a lesser extent C4-5 and C6-7. The degenerative disc findings are felt to be unchanged from the 2014 prior study. IMPRESSION: Degenerative spondylosis changes as noted above. No acute abnormality. <Electronically signed by Charles Clifford > 11/19/20 [id number]
--- NOTE | 2020-11-19 15:53 | REP ---
INDICATION: DISC DISORDER. COMPARISON: Comparison lumbar spine radiographs February 09, 2018.. TECHNIQUE: Seven views including flexion extension lateral radiographs. FINDINGS: Lumbar vertebral body heights are preserved. Alignment is normal. Flexion extension lateral views show some limitation of flexion extension range of motion but no subluxation or instability. There is diffuse degenerative discogenic spurring. Disc space narrowing is noted at L4-5 and L2-3. These findings are unchanged from the 2018 prior study. Vascular calcification is noted in a normal caliber aorta. Oblique radiographs demonstrate osteoarthritic facet hypertrophy and sclerosis bilaterally at L4-5 and L5-S1, right worse than left. These findings are also radiographically stable. Sacrum and SI joints are intact. Psoas margins are intact. Visualized bowel gas pattern is normal. There appear to be faintly calcified large gallstones in the right upper quadrant. IMPRESSION: Degenerative spondylosis changes radiographically stable from February 09, 2018 prior study. Cholelithiasis. <Electronically signed by Charles Clifford > 11/19/20 [id number]
== END ==
LOC: M ADAMS 10:46
PROVIDERS: ATTEND Family Medicine
DX: M50.90 Cervical disc disorder, unspecified, unspecified cervical region (principal); M51.37 Other intervertebral disc degeneration, lumbosacral region

== ENCOUNTER → 2020-12-29 | Outpatient (CLI) | payer MEDICARE, OTHER ==
--- NOTE | 2020-12-29 16:08 | REP ---
INDICATION: HYDRONEPHROSIS, MALIGNANT NEOPLASM OF KIDNEY COMPARISON: 04/27/2018 TECHNIQUE: Real time moya scale ultrasound examination using curved array transducer. FINDINGS: Right kidney is normal in contour, size, echogenicity, and reniform shape with increased central sinus fat suggesting age-related renal disease. No hydronephrosis, nephrolithiasis, cystic or renal mass lesion. Kidney measures 14.3 x 5.2 x 5.7 cm. Left kidney is incompletely evaluated and appears to be replaced by a large 13.1 x 6.7 x 6.3 cm anechoic/cystic lesion. Further evaluation of the left kidney/renal fossa is limited and incomplete. IMPRESSION: 1. 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 2. 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 Consider pre and postcontrast CT of the abdomen and pelvis for further investigation. <Electronically signed by Aleksandr Meza > 12/29/20 [id number]
== END ==
LOC: M RAD 15:06
PROVIDERS: ATTEND Internal Medicine Nephrology
DX: N18.9 Chronic kidney disease, unspecified (principal); N28.1 Cyst of kidney, acquired; N13.39 Other hydronephrosis; C64.9 Malignant neoplasm of unspecified kidney, except renal pelvis

== ENCOUNTER → 2021-01-22 | Outpatient (CLI) | payer MEDICARE, OTHER | LOC: M LABSMTC 11:09 | PROVIDERS: ATTEND Internal Medicine Cardiovascular Disease | DX: I42.9 Cardiomyopathy, unspecified (principal) ==

== ENCOUNTER 2021-02-06 11:44 | Outpatient (CLI) | payer MEDICARE, OTHER ==
[~2021-02-06] VITALS: Ht 177.8 cm; Wt 136.3 kg
[2021-02-06 11:55] VITALS: BP 144/67
[2021-02-06] MEDS ORDERED: IRON SUCROSE 25 MG in NS 25 ML IV ONE (12:00)
[2021-02-06] MEDS ORDERED: IRON SUCROSE 75 MG in NS 75 ML IV ONE (13:00)
[2021-02-06 14:12] VITALS: BP 112/53
[2021-02-06] MEDS ORDERED: CRAN450T4 PO (14:28)
[2021-02-06 14:30] VITALS: BP_SYST 112; BP_SYST 124; BP_DIAS 53; BP_DIAS 78
== END 2021-02-06 14:30 | disposition home or self-care (01) ==
LOC: M INFU 11:44
PROVIDERS: ATTEND Family Medicine
DX: D50.9 Iron deficiency anemia, unspecified (principal); Z88.1 Allergy status to other antibiotic agents
CPT/HCPCS: 96365; J1756

== ENCOUNTER → 2021-02-12 | Outpatient (REF) | payer MEDICARE, OTHER ==
[~2021-02-12] MED LIST changes: +CRAN450T4 PO
[2021-02-12 18:10] LABS: HEMATOCRIT 44.8 % (42.0-52.0); HEMOGLOBIN 13.4 g/dl (13.5-17.5); MEAN CORPUSCULAR HEMOGLOBIN 29.2 pg (27.0-33.0); MEAN CORPUSCULAR HGB CONC 29.9 g/dl (32.0-36.5); MEAN CORPUSCULAR VOLUME 97.6 fl (80.0-96.0); PLATELET COUNT, AUTOMATED 292 10^3/uL (150-450); RED BLOOD COUNT 4.59 10^6/uL (4.30-6.10); WHITE BLOOD COUNT 9.2 10^3/uL (4.0-10.0)
[2021-02-12 18:23] LABS: ALBUMIN 3.7 GM/DL (3.2-5.2); ALT/SGPT 42 U/L (12-78); BILIRUBIN,TOTAL 0.3 MG/DL (0.2-1.0); BLOOD UREA NITROGEN 46 MG/DL (7-18); CALCIUM LEVEL 9.3 MG/DL (8.8-10.2); CARBON DIOXIDE LEVEL 34 MEQ/L (21-32); CHLORIDE LEVEL 100 MEQ/L (98-107); CHOLESTEROL LEVEL 176 MG/DL (<200); CHOLESTEROL RISK RATIO 4.512 (<5); CREATININE FOR GFR 1.52 MG/DL (0.70-1.30); FERRITIN 130 NG/ML (26-388); FREE T4 1.29 NG/DL (0.76-1.46); GLOMERULAR FILTRATION RATE 48.5 (>42); GLUCOSE, FASTING 112 MG/DL (70-100); HDL CHOLESTEROL 39 MG/DL (>40); IRON (FE) 55 UG/DL (65-175); LDL CHOLESTEROL 71 MG/DL (<100); MAGNESIUM LEVEL 2.4 MG/DL (1.8-2.4); NON-HDL-C 137 MG/DL; POTASSIUM SERUM 4.5 MEQ/L (3.5-5.1); PROSTATIC SPECIFIC AG MONITOR < 0.01 NG/ML (< 4.00); SODIUM LEVEL 138 MEQ/L (136-145); TOTAL IRON BINDING CAPACITY 305 UG/DL (250-450); TOTAL PROTEIN 7.5 GM/DL (6.4-8.2); TRIGLYCERIDES LEVEL 329 MG/DL (<150)
== END ==
LOC: M SFHCADAM 11:47
PROVIDERS: ATTEND Family Medicine
DX: D50.9 Iron deficiency anemia, unspecified (principal); N18.30 Chronic kidney disease, stage 3 unspecified; E03.9 Hypothyroidism, unspecified; E78.2 Mixed hyperlipidemia; I48.0 Paroxysmal atrial fibrillation; C61 Malignant neoplasm of prostate

== ENCOUNTER → 2021-02-12 | Outpatient (CLI) | payer MEDICARE, OTHER ==
--- NOTE | 2021-02-12 12:43 | REP ---
INDICATION: PULMONARY COMPARISON: 05/09/2020 TECHNIQUE: PA and lateral. FINDINGS: The mediastinum and cardiac silhouette are stable. The lung oro demonstrate stable chronic changes without acute consolidation, effusion, or pneumothorax. The skeletal structures are intact and normal. IMPRESSION: Chronic stable changes. No acute cardiopulmonary process. <Electronically signed by Aleksandr Meza > 02/12/21 [id number]
== END ==
LOC: M ADAMS 11:58
PROVIDERS: ATTEND Family Medicine
DX: I27.20 Pulmonary hypertension, unspecified (principal); D50.9 Iron deficiency anemia, unspecified; N18.30 Chronic kidney disease, stage 3 unspecified; E03.9 Hypothyroidism, unspecified; E78.2 Mixed hyperlipidemia; I48.0 Paroxysmal atrial fibrillation; C61 Malignant neoplasm of prostate
CPT/HCPCS: 71046; 80053; 80061; 82728; 83550; 83735; 84153; 84439; 84443; 85027; 85046; G0463

== ENCOUNTER 2021-02-25 11:37 | Outpatient (CLI) | payer MEDICARE, OTHER ==
[~2021-02-25] VITALS: Ht 177.8 cm; Wt 136.3 kg
[2021-02-25 11:40] VITALS: BP 161/87
[2021-02-25] MEDS ORDERED: IRON SUCROSE 200 MG in NS 190 ML IV ONE (12:00)
[2021-02-25 13:40] VITALS: BP 136/68
== END 2021-02-25 13:40 | disposition home or self-care (01) ==
LOC: M INFU 11:37
PROVIDERS: ATTEND Family Medicine
DX: D50.9 Iron deficiency anemia, unspecified (principal); Z88.1 Allergy status to other antibiotic agents
CPT/HCPCS: 96365; J1756

== ENCOUNTER 2021-03-04 11:41 | Outpatient (CLI) | payer MEDICARE, OTHER ==
[~2021-03-04] VITALS: Ht 180.3 cm; Wt 136.3 kg
[2021-03-04 11:55] VITALS: BP 146/67
[2021-03-04] MEDS ORDERED: IRON SUCROSE 200 MG in NS 200 ML IV ONE (12:00)
[2021-03-04 13:30] VITALS: BP 135/63
== END 2021-03-04 13:30 | disposition home or self-care (01) ==
LOC: M INFU 11:41
PROVIDERS: ATTEND Family Medicine
DX: D50.9 Iron deficiency anemia, unspecified (principal); Z79.899 Other long term (current) drug therapy
CPT/HCPCS: 96365; J1756

== ENCOUNTER → 2021-03-09 | Outpatient (REF) | payer MEDICARE, OTHER ==
[2021-03-09 13:16] LABS: CALCIUM LEVEL 9.1 MG/DL (8.8-10.2); CREATININE FOR GFR 1.7 MG/DL (0.70-1.30); GLOMERULAR FILTRATION RATE 42.6 (>42); POTASSIUM SERUM 4.7 MEQ/L (3.5-5.1)
== END ==
LOC: M LAB REF 12:16 → M LABDRWAD 12:16
PROVIDERS: ATTEND Internal Medicine Cardiovascular Disease
DX: I27.20 Pulmonary hypertension, unspecified (principal); I50.32 Chronic diastolic (congestive) heart failure

== ENCOUNTER 2021-03-11 12:42 | Outpatient (CLI) | payer MEDICARE, OTHER ==
[~2021-03-11] VITALS: Ht 208.3 cm; Wt 136.3 kg
[~2021-03-11 12:42] MED LIST changes: +IRON SUCROSE 200 MG in NS 200 ML IV ONE
[2021-03-11 12:50] VITALS: BP 132/64
[2021-03-11 14:45] VITALS: BP 175/73
== END 2021-03-11 14:45 | disposition home or self-care (01) ==
LOC: M INFU 12:42
PROVIDERS: ATTEND Family Medicine
DX: D50.9 Iron deficiency anemia, unspecified (principal); Z88.1 Allergy status to other antibiotic agents
CPT/HCPCS: 96374; J1756

== ENCOUNTER 2021-03-18 10:11 | Outpatient (CLI) | payer MEDICARE, OTHER ==
[~2021-03-18] VITALS: Ht 177.8 cm; Wt 136.0 kg
[~2021-03-18 10:11] MED LIST changes: -IRON SUCROSE 200 MG in NS 200 ML IV ONE
[2021-03-18] MEDS ORDERED: IRON SUCROSE 100 MG in NS 95 ML IV ONE (10:30)
[2021-03-18 10:42] VITALS: BP 135/66
[2021-03-18 12:00] VITALS: BP 160/72
== END 2021-03-18 12:00 | disposition home or self-care (01) ==
LOC: M INFU 10:11
PROVIDERS: ATTEND Family Medicine
DX: D50.9 Iron deficiency anemia, unspecified (principal); Z88.1 Allergy status to other antibiotic agents
CPT/HCPCS: 96365; J1756

== ENCOUNTER → 2021-05-06 | Outpatient (REF) | payer MEDICARE, OTHER ==
[2021-05-06 12:54] LABS: HEMATOCRIT 41.5 % (42.0-52.0); HEMOGLOBIN 12.6 g/dl (13.5-17.5); MEAN CORPUSCULAR HEMOGLOBIN 30.5 pg (27.0-33.0); MEAN CORPUSCULAR HGB CONC 30.4 g/dl (32.0-36.5); MEAN CORPUSCULAR VOLUME 100.5 fl (80.0-96.0); PLATELET COUNT, AUTOMATED 209 10^3/uL (150-450); RED BLOOD COUNT 4.13 10^6/uL (4.30-6.10); WHITE BLOOD COUNT 6.9 10^3/uL (4.0-10.0)
[2021-05-06 13:30] LABS: ALBUMIN 3.4 GM/DL (3.2-5.2); BILIRUBIN,TOTAL 0.3 MG/DL (0.2-1.0); CALCIUM LEVEL 8.9 MG/DL (8.8-10.2); CREATININE FOR GFR 1.58 MG/DL (0.70-1.30); FREE T4 1.27 NG/DL (0.76-1.46); GLOMERULAR FILTRATION RATE 46.4 (>42); PERCENT SATURATION 23.5 % (19.7-50.0); POTASSIUM SERUM 4.5 MEQ/L (3.5-5.1); THYROID STIMULATING HORMONE 1.66 uIU/ML (0.358-3.740); TOTAL PROTEIN 6.8 GM/DL (6.4-8.2)
== END ==
LOC: M SFHCADAM 09:53
PROVIDERS: ATTEND Family Medicine
DX: I48.0 Paroxysmal atrial fibrillation (principal); N18.30 Chronic kidney disease, stage 3 unspecified; D50.9 Iron deficiency anemia, unspecified; E03.9 Hypothyroidism, unspecified

== ENCOUNTER → 2022-02-12 | Outpatient (CLI) | payer MEDICARE, OTHER ==
[~2022-02-12] MED LIST changes: +VITA100093 PO
[2022-02-12 17:14] LABS: ALBUMIN 3.3 GM/DL (3.2-5.2); BILIRUBIN,DIRECT 0.1 MG/DL (0.0-0.2); BILIRUBIN,TOTAL 0.4 MG/DL (0.2-1.0); TOTAL PROTEIN 6.5 GM/DL (6.4-8.2)
== END ==
LOC: M ADAMS 11:17
PROVIDERS: ATTEND Podiatrist
DX: Z79.899 Other long term (current) drug therapy (principal)

== ENCOUNTER → 2022-06-07 | Outpatient (CLI) | payer MEDICARE, OTHER | LOC: M RAD 17:05 | PROVIDERS: ATTEND Internal Medicine Pulmonary Disease | DX: R91.8 Other nonspecific abnormal finding of lung field (principal) ==

== ENCOUNTER → 2022-07-14 | Outpatient (REF) | payer MEDICARE, OTHER ==
[2022-07-14 13:00] LABS: APPEARANCE, URINE MANUAL TURBID (CLEAR); COLOR, URINE MANUAL DK YELLOW (YELLOW)
[2022-07-14 13:01] LABS: BILIRUBIN, URINE MANUAL NEGATIVE (NEGATIVE); GLUCOSE, URINE (UA) MANUAL NEGATIVE (NEGATIVE); KETONE, URINE MANUAL 1+ mg/dL (NEGATIVE); NITRITE, URINE MANUAL NEGATIVE (NEGATIVE); PROTEIN, URINE MANUAL 2+ mg/dL (NEGATIVE); UROBILINOGEN, URINE MANUAL NORMAL (NORMAL)
[2022-07-14 13:02] LABS: BLOOD URINE MANUAL POSITIVE (NEGATIVE); LEUKOCYTE ESTERASE, URINE MAN POSITIVE (NEGATIVE)
[2022-07-14 13:16] LABS: RBC, URINE TNTC /hpf (0-3); WBC, URINE TNTC /hpf (0-3)
[2022-07-14 13:17] LABS: BACTERIA, URINE LARGE AMOUNT; HYALINE CAST, URINE NONE SEEN /lpf (0-1); SQUAMOUS EPITHELIAL CELL URINE SMALL AMOUNT /hpf (SMALL AMT)
[2022-07-14 13:21] LABS: AMORPHOUS SEDIMENT, URINE MOD AMOUNT (NEGATIVE); HEMOGLOBIN 13.2 g/dl (13.5-17.5); MEAN CORPUSCULAR HEMOGLOBIN 29.7 pg (27.0-33.0); MEAN CORPUSCULAR VOLUME 99.1 fl (80.0-96.0); MUCUS, URINE SMALL AMOUNT (NEGATIVE); PLATELET COUNT, AUTOMATED 217 10^3/uL (150-450); RED BLOOD COUNT 4.44 10^6/uL (4.30-6.10); WHITE BLOOD COUNT 8.5 10^3/uL (4.0-10.0)
[2022-07-14 13:55] LABS: CALCIUM LEVEL 8.7 MG/DL (8.8-10.2); CREATININE FOR GFR 2.13 MG/DL (0.70-1.30); GLOMERULAR FILTRATION RATE 32.8 (>42); POTASSIUM SERUM 4.2 MEQ/L (3.5-5.1)
[2022-07-14 14:20] LABS: HEMOGLOBIN A1c 5.9 %
== END ==
LOC: M SFHCADAM 11:01
PROVIDERS: ATTEND Family Medicine
DX: R73.03 Prediabetes (principal); N18.30 Chronic kidney disease, stage 3 unspecified; G47.10 Hypersomnia, unspecified; Z87.440 Personal history of urinary (tract) infections

== ENCOUNTER → 2022-07-16 | Outpatient (CLI) | payer MEDICARE, OTHER | LOC: M WHC 13:35 | PROVIDERS: ATTEND Family Medicine | DX: N17.9 Acute kidney failure, unspecified (principal) ==

== ENCOUNTER → 2022-08-16 | Outpatient (CLI) | payer MEDICARE, OTHER ==
[2022-08-16 14:10] LABS: CALCIUM LEVEL 8.5 MG/DL (8.8-10.2); CREATININE FOR GFR 2.07 MG/DL (0.70-1.30); GLOMERULAR FILTRATION RATE 33.9 (>42); POTASSIUM SERUM 4.2 MEQ/L (3.5-5.1)
== END ==
LOC: M LABDRWAD 11:24
PROVIDERS: ATTEND Internal Medicine Cardiovascular Disease
DX: I50.32 Chronic diastolic (congestive) heart failure (principal); I27.20 Pulmonary hypertension, unspecified

== ENCOUNTER → 2022-08-25 | Outpatient (REF) | payer MEDICARE, OTHER ==
[2022-08-25 13:41] LABS: CREATININE FOR GFR 1.86 MG/DL (0.70-1.30); GLOMERULAR FILTRATION RATE 38.3 (>42); POTASSIUM SERUM 4.9 MEQ/L (3.5-5.1)
== END ==
LOC: M SFHCADAM 09:54
PROVIDERS: ATTEND Family Medicine
DX: R73.03 Prediabetes (principal); N18.30 Chronic kidney disease, stage 3 unspecified

== ENCOUNTER 2022-11-14 06:44 | Emergency (ER) | payer MEDICARE, OTHER ==
[~2022-11-14] VITALS: Ht 177.8 cm; Wt 133.6 kg
[2022-11-14] MEDS ORDERED: ALBUTEROL SULFATE 2.5MG/0.5ML INH NEB SOLN INH ONE (07:00)
[2022-11-14] MEDS ORDERED: IPRATROPIUM 0.5MG/ALBUTEROL 2.5MG INH SOL UD 3ML (DUONEB) NEB ONE (07:00)
[2022-11-14] MEDS ORDERED: methylPREDNISolone 125MG 2ML VIAL IV ONE (07:00)
[2022-11-14] MEDS ORDERED: NS IV ONE (07:15)
[2022-11-14] MEDS ORDERED: ACETAMINOPHEN 325 MG TAB PO ONE (07:15)
[2022-11-14] MEDS ORDERED: PIPERACILLIN/TAZOBACTAM SOD 4.5 GM in D5W MINI-BAG PLUS 50 ML IV ONE (07:15)
[2022-11-14 07:23] LABS: ABG BASE EXCESS 0.7 (-2.0-2.0); ABG O2 SATURATION 95.8 % (95.0-99.0); ABG PARTIAL PRESSURE CO2 50.8 mmHg (35.0-45.0); ABG PARTIAL PRESSURE O2 89.8 mmHg (75.0-100.0); ABG STANDARD HCO3 25.1 MEQ/L (22.0-26.0); ABG TOTAL CO2 28.6 MEQ/L (23.0-31.0); ABG pH (ARTERIAL) 7.344 UNITS (7.350-7.450)
[2022-11-14 07:28] LABS: BASO # 0.1 10^3/uL (0.0-0.2); BASO % 0.2 % (0.0-1.0); EOS % 0.1 % (0.0-3.0); HEMATOCRIT 38.8 % (42.0-52.0); HEMOGLOBIN 11.5 g/dl (13.5-17.5); LYMPH # 0.9 10^3/uL (1.5-5.0); LYMPH % 3.7 % (24.0-44.0); MEAN CORPUSCULAR HEMOGLOBIN 28.8 pg (27.0-33.0); MEAN CORPUSCULAR HGB CONC 29.6 g/dl (32.0-36.5); MEAN CORPUSCULAR VOLUME 97.2 fl (80.0-96.0); MONO # 1.5 10^3/uL (0.0-0.8); MONO % 6.4 % (2.0-8.0); NEUTROPHILS # 20.7 10^3/uL (1.5-8.5); NEUTROPHILS % 88.8 % (36.0-66.0); PLATELET COUNT, AUTOMATED 226 10^3/uL (150-450); RED BLOOD COUNT 3.99 10^6/uL (4.30-6.10); WHITE BLOOD COUNT 23.3 10^3/uL (4.0-10.0)
[2022-11-14 07:43] LABS: INR 1.17; PARTIAL THROMBOPLASTIN TIME 31.2 SECONDS (24.8-34.2); PROTHROMBIN TIME 15.1 SECONDS (12.5-14.5)
[2022-11-14 07:58] LABS: BILIRUBIN,DIRECT 0.2 MG/DL (<0.4); BILIRUBIN,TOTAL 0.5 MG/DL (0.3-1.2); CALCIUM LEVEL 8.3 MG/DL (8.3-10.6); CK-MB VALUE MASS 1.5 NG/ML (<3.6); CREATININE FOR GFR 5.3 MG/DL (0.70-1.30); GLOMERULAR FILTRATION RATE 11.4 (>42); MB/CK RELATIVE INDEX 0.53 (< OR =4); POTASSIUM SERUM 4.7 MMOL/L (3.5-5.1); TOTAL PROTEIN 6.9 G/DL (5.7-8.2)
[2022-11-14 08:00] LABS: THYROID STIMULATING HORMONE 2.064 uIU/ML (0.55-4.78); THYROXINE (T4) 11.8 UG/DL (4.5-10.9)
[2022-11-14] MEDS ORDERED: JARD1TAB PO (09:19)
[2022-11-14] MEDS ORDERED: SYNT75TA PO (09:19)
[2022-11-14] MEDS ORDERED: LORA-674 PO (09:19)
[2022-11-14] MEDS ORDERED: PANT20TA51 PO (09:19)
[2022-11-14] MEDS ORDERED: VENTAER INH (09:19)
[2022-11-14] MEDS ORDERED: HOME MED LIST COMPLETE! XX SCH (09:20)
[2022-11-14 09:32] LABS: CK-MB VALUE MASS 2.8 NG/ML (<3.6); MB/CK RELATIVE INDEX 0.68 (< OR =4)
[2022-11-14] MEDS ORDERED: NOREPINEPHRINE 4MG IN D5 250ML 4 MG in IV 1 EA IV SCH ×2 (10:55)
[2022-11-14 11:00] VITALS: BP 103/54
== END 2022-11-14 11:13 | disposition short-term general hospital (02) ==
LOC: M ED 06:44 → EDBD 06:44 → M ED 11:13
DX: J18.9 Pneumonia, unspecified organism (principal); A41.9 Sepsis, unspecified organism; N13.9 Obstructive and reflux uropathy, unspecified; J96.01 Acute respiratory failure with hypoxia; I48.0 Paroxysmal atrial fibrillation; R00.0 Tachycardia, unspecified; I10 Essential (primary) hypertension; I45.10 Unspecified right bundle-branch block; K21.9 Gastro-esophageal reflux disease without esophagitis; N18.30 Chronic kidney disease, stage 3 unspecified; Z79.2 Long term (current) use of antibiotics; Z79.84 Long term (current) use of oral hypoglycemic drugs; Z87.891 Personal history of nicotine dependence; Z79.51 Long term (current) use of inhaled steroids; Z79.810 Long term (current) use of selective estrogen receptor modulators (SERMs); Z79.1 Long term (current) use of non-steroidal anti-inflammatories (NSAID); Z79.811 Long term (current) use of aromatase inhibitors; Z79.899 Other long term (current) drug therapy
CPT/HCPCS: 36600; 70450; 71045; 71250; 74176; 80048; 80076; 81000; 81015; 82550; 82553; 82803; 83605; 83880; 84436; 84443; 84484; 85025; 85610; 85730; 87040; 87088; 87186; 87486; 87581; 87633; 87798; 93005; 93041; 94640; 94760; 96361; 96374; 96375; 99285; J2543; J2930

== ENCOUNTER → 2022-12-06 | Outpatient (REF) | payer MEDICARE ==
[~2022-12-06] MED LIST changes: +ACET-839 PO; +CEPH500C PO; +ELIQ5TAB PO; +JARD1TAB PO; +LORA-674 PO; +METO200T28 PO; +PANT20TA51 PO; +SYNT75TA PO; +VENTAER INH
[2022-12-06 18:17] LABS: HEMATOCRIT 30.9 % (42.0-52.0); HEMOGLOBIN 9.6 g/dl (13.5-17.5); MEAN CORPUSCULAR HEMOGLOBIN 29.2 pg (27.0-33.0); MEAN CORPUSCULAR HGB CONC 31.1 g/dl (32.0-36.5); MEAN CORPUSCULAR VOLUME 93.9 fl (80.0-96.0); PLATELET COUNT, AUTOMATED 215 10^3/uL (150-450); RED BLOOD COUNT 3.29 10^6/uL (4.30-6.10); WHITE BLOOD COUNT 7.9 10^3/uL (4.0-10.0)
[2022-12-06 18:43] LABS: HEMOGLOBIN A1c 5.7 % (4.0-6.0)
[2022-12-06 18:44] LABS: ALBUMIN 3.1 G/DL (3.2-5.2); BILIRUBIN,TOTAL 0.5 MG/DL (0.3-1.2); CALCIUM LEVEL 8.2 MG/DL (8.3-10.6); CREATININE FOR GFR 2.19 MG/DL (0.70-1.30); FREE T4 2.02 NG/DL (0.89-1.76); GLOMERULAR FILTRATION RATE 31.6 (>42); POTASSIUM SERUM 3.7 MMOL/L (3.5-5.1); THYROID STIMULATING HORMONE 2.128 uIU/ML (0.55-4.78); TOTAL PROTEIN 6.8 G/DL (5.7-8.2)
== END ==
LOC: M SFHCADAM 14:55
PROVIDERS: ATTEND Family Medicine
DX: I27.20 Pulmonary hypertension, unspecified (principal); N18.30 Chronic kidney disease, stage 3 unspecified; I50.9 Heart failure, unspecified; E03.9 Hypothyroidism, unspecified; R73.03 Prediabetes

== ENCOUNTER → 2022-12-17 | Outpatient (REF) | payer MEDICARE ==
[2022-12-17 13:01] LABS: BASO % 0.5 % (0.0-1.0); EOS # 0.2 10^3/uL (0.0-0.5); EOS % 2.9 % (0.0-3.0); HEMATOCRIT 30.1 % (42.0-52.0); HEMOGLOBIN 9.2 g/dl (13.5-17.5); LYMPH # 1.1 10^3/uL (1.5-5.0); LYMPH % 13.8 % (24.0-44.0); MEAN CORPUSCULAR HGB CONC 30.6 g/dl (32.0-36.5); MONO # 0.4 10^3/uL (0.0-0.8); NEUTROPHILS # 6.3 10^3/uL (1.5-8.5); NEUTROPHILS % 77.2 % (36.0-66.0); PLATELET COUNT, AUTOMATED 257 10^3/uL (150-450); RED BLOOD COUNT 3.07 10^6/uL (4.30-6.10); WHITE BLOOD COUNT 8.2 10^3/uL (4.0-10.0)
[2022-12-17 13:27] LABS: ALBUMIN 2.7 G/DL (3.2-5.2); CALCIUM LEVEL 8.7 MG/DL (8.3-10.6); CREATININE FOR GFR 1.51 MG/DL (0.70-1.30); GLOMERULAR FILTRATION RATE 48.6 (>42); PHOSPHORUS LEVEL 2.7 MG/DL (2.4-5.1); POTASSIUM SERUM 4.2 MMOL/L (3.5-5.1)
== END ==
LOC: M LAB REF 12:01
PROVIDERS: ATTEND Physician Assistant Medical
DX: N12 Tubulo-interstitial nephritis, not specified as acute or chronic (principal); N17.9 Acute kidney failure, unspecified; E03.9 Hypothyroidism, unspecified; D63.8 Anemia in other chronic diseases classified elsewhere

== ENCOUNTER → 2023-01-06 | Outpatient (REF) | payer MEDICARE | LOC: M SFHCADAM 12:42 | PROVIDERS: ATTEND Family Medicine | DX: Z01.818 Encounter for other preprocedural examination (principal); Z20.822 Contact with and (suspected) exposure to COVID-19 ==

== ENCOUNTER → 2023-01-06 | Outpatient (REF) | payer MEDICARE | LOC: M SFHCADAM 13:22 | PROVIDERS: ATTEND Family Medicine | DX: Z01.818 Encounter for other preprocedural examination (principal); Z20.822 Contact with and (suspected) exposure to COVID-19 ==

== ENCOUNTER → 2023-02-03 | Outpatient (CLI) | payer MEDICARE | LOC: M ADAMS 14:56 | PROVIDERS: ATTEND Family Medicine | DX: K80.20 Calculus of gallbladder without cholecystitis without obstruction (principal); K59.00 Constipation, unspecified; K63.89 Other specified diseases of intestine; M51.34 Other intervertebral disc degeneration, thoracic region; M51.36 Other intervertebral disc degeneration, lumbar region; I51.7 Cardiomegaly; I27.21 Secondary pulmonary arterial hypertension; N20.0 Calculus of kidney; R91.8 Other nonspecific abnormal finding of lung field ==

== ENCOUNTER → 2023-03-10 | Outpatient (REF) | payer MEDICARE ==
[2023-03-10 16:32] LABS: MEAN CORPUSCULAR HEMOGLOBIN 27.6 pg (27.0-33.0); MEAN CORPUSCULAR HGB CONC 28.1 g/dl (32.0-36.5); MEAN CORPUSCULAR VOLUME 98.2 fl (80.0-96.0); PLATELET COUNT, AUTOMATED 281 10^3/uL (150-450); RED BLOOD COUNT 3.26 10^6/uL (4.30-6.10); WHITE BLOOD COUNT 7.6 10^3/uL (4.0-10.0)
[2023-03-10 16:54] LABS: CALCIUM LEVEL 8.1 MG/DL (8.3-10.6); CREATININE FOR GFR 1.67 MG/DL (0.70-1.30); GLOMERULAR FILTRATION RATE 43.3 (>42); POTASSIUM SERUM 3.7 MMOL/L (3.5-5.1)
[2023-03-10 16:56] LABS: FREE T4 1.03 NG/DL (0.89-1.76); THYROID STIMULATING HORMONE 4.912 uIU/ML (0.55-4.78)
== END ==
LOC: M SFHCADAM 14:40
PROVIDERS: ATTEND Family Medicine
DX: I48.0 Paroxysmal atrial fibrillation (principal); Z87.440 Personal history of urinary (tract) infections; G62.0 Drug-induced polyneuropathy; I27.20 Pulmonary hypertension, unspecified; I50.9 Heart failure, unspecified; E03.9 Hypothyroidism, unspecified

== ENCOUNTER → 2023-03-18 | Outpatient (CLI) | payer MEDICARE ==
[~2023-03-18] MED LIST changes: +AMOX875T2 PO; +DOK100TA2 PO; +METO25TA PO; +NITR100C2 PO; +ZOLP5TAB PO
== END ==
LOC: M ADAMS 14:06
PROVIDERS: ATTEND Internal Medicine Cardiovascular Disease
DX: I50.32 Chronic diastolic (congestive) heart failure (principal); J69.0 Pneumonitis due to inhalation of food and vomit

== ENCOUNTER 2023-03-19 16:46 | Inpatient (IN) | payer MEDICARE ==
[~2023-03-19] VITALS: Ht 172.7 cm; Wt 128.2 kg
[~2023-03-19 16:46] MED LIST changes: -AMOX875T2 PO; -DOK100TA2 PO; -METO25TA PO; -NITR100C2 PO; -ZOLP5TAB PO
[2023-03-19 17:20] LABS: VENOUS BASE EXCESS 11.4 (-2.0-2.0); VENOUS HCO3 38.9 MMOL/L (23.0-27.0); VENOUS O2 SATURATION 85.2 % (60.0-80.0); VENOUS PARTIAL PRESSURE CO2 70.2 mmHg (38.0-50.0); VENOUS PARTIAL PRESSURE O2 52.7 mmHg (30.0-50.0); VENOUS PH 7.362 UNITS (7.330-7.430); VENOUS STANDARD HCO3 34.8 MMOL/L; VENOUS TOTAL CO2 41.1 MMOL/L (24.0-28.0)
[2023-03-19 17:28] LABS: BASO % 0.2 % (0.0-1.0); EOS % 0.1 % (0.0-3.0); HEMATOCRIT 33.1 % (42.0-52.0); HEMOGLOBIN 9.4 g/dl (13.5-17.5); LYMPH # 0.9 10^3/uL (1.5-5.0); LYMPH % 4.8 % (24.0-44.0); MEAN CORPUSCULAR HEMOGLOBIN 27.4 pg (27.0-33.0); MEAN CORPUSCULAR HGB CONC 28.4 g/dl (32.0-36.5); MEAN CORPUSCULAR VOLUME 96.5 fl (80.0-96.0); MONO # 0.9 10^3/uL (0.0-0.8); MONO % 4.5 % (2.0-8.0); NEUTROPHILS # 17.5 10^3/uL (1.5-8.5); NEUTROPHILS % 89.8 % (36.0-66.0); PLATELET COUNT, AUTOMATED 272 10^3/uL (150-450); RED BLOOD COUNT 3.43 10^6/uL (4.30-6.10); WHITE BLOOD COUNT 19.5 10^3/uL (4.0-10.0)
[2023-03-19 17:51] LABS: ALBUMIN 3.3 G/DL (3.2-5.2); BILIRUBIN,DIRECT 0.1 MG/DL (<0.4); BILIRUBIN,TOTAL 0.4 MG/DL (0.3-1.2); CALCIUM LEVEL 8.5 MG/DL (8.3-10.6); CREATININE FOR GFR 1.69 MG/DL (0.70-1.30); GLOMERULAR FILTRATION RATE 42.7 (>42); POTASSIUM SERUM 4.1 MMOL/L (3.5-5.1); TOTAL PROTEIN 7.1 G/DL (5.7-8.2)
[2023-03-19 17:54] LABS: THYROID STIMULATING HORMONE 2.39 uIU/ML (0.55-4.78)
[2023-03-19] MEDS ORDERED: DOXYCYCLINE HYCLATE 100MG TABLET PO ONE (18:25)
[2023-03-19] MEDS ORDERED: cefTRIAXone SOD 1 GM in D5W MINI-BAG PLUS 50 ML IV ONE ×2 (18:25→18:30)
[2023-03-19] MEDS ORDERED: FUROSEMIDE 100MG/10ML VIAL IV ONE (18:25)
[2023-03-19] MEDS ORDERED: guaiFENesin DM LIQ 10ML UD PO PRN (18:55)
[2023-03-19] MEDS ORDERED: cefTRIAXone SOD 2 GM in D5W MINI-BAG PLUS 50 ML IV ONE (19:00)
[2023-03-19] MEDS ORDERED: METOPROLOL 5 MG/5 ML VIAL As Ordered ONE (19:06)
[2023-03-19] MEDS: METOPROLOL 5 MG/5 ML VIAL IV SCH ×2 (19:15→19:18)
[2023-03-19] MEDS ORDERED: METOPROLOL 5 MG/5 ML VIAL IV STA (19:46)
[2023-03-19] MEDS ORDERED: NITR100C2 PO (20:03)
[2023-03-19] MEDS ORDERED: DOK100TA2 PO (20:03)
[2023-03-19] MEDS ORDERED: SUCR1TAB56 PO (20:03)
[2023-03-19] MEDS ORDERED: ZOLP5TAB PO (20:03)
[2023-03-19] MEDS ORDERED: PANT20TA51 PO (20:03)
[2023-03-19] MEDS ORDERED: HOME MED LIST COMPLETE! XX SCH (20:05)
[2023-03-19] MEDS ORDERED: METOPROLOL TART 25 MG TABLET PO ONE (20:30)
[2023-03-20] VITALS (25 sets, daily range): BP systolic 102–131; BP diastolic 50–77; O2SAT 90–100
[2023-03-20] MEDS: LORATADINE 10 MG TAB PO SCH ×2 (00:23→21:07)
[2023-03-20] MEDS: PIPERACILLIN/TAZOBACTAM SOD 4.5 GM in D5W MINI-BAG PLUS 50 ML IV SCH ×5 (00:23→23:51)
[2023-03-20] MEDS: APIXABAN 5 MG TAB (ELIQUIS) PO SCH ×3 (00:23→21:07)
[2023-03-20] MEDS: guaiFENesin ER 600 MG TAB PO SCH ×3 (00:23→21:07)
[2023-03-20] MEDS: GABAPENTIN 300 MG CAP PO SCH ×4 (00:23→21:07)
[2023-03-20] MEDS: METOPROLOL TART 25 MG TABLET PO SCH ×2 (00:24→06:18)
[2023-03-20 01:24] LABS: CK-MB VALUE MASS < 1.0 NG/ML (<3.6)
[2023-03-20 01:25] LABS: CPK CREATINE PHOSPHOKINASE 21 U/L (46-171); MB/CK RELATIVE INDEX 4.76 (< OR =4)
[2023-03-20 06:01] LABS: BASO # 0.1 10^3/uL (0.0-0.2); BASO % 0.4 % (0.0-1.0); EOS # 0.1 10^3/uL (0.0-0.5); EOS % 0.8 % (0.0-3.0); HEMATOCRIT 30.7 % (42.0-52.0); HEMOGLOBIN 8.6 g/dl (13.5-17.5); LYMPH # 1.3 10^3/uL (1.5-5.0); LYMPH % 8.9 % (24.0-44.0); MEAN CORPUSCULAR HEMOGLOBIN 27.2 pg (27.0-33.0); MEAN CORPUSCULAR VOLUME 97.2 fl (80.0-96.0); MONO # 0.9 10^3/uL (0.0-0.8); MONO % 6.1 % (2.0-8.0); NEUTROPHILS # 12.1 10^3/uL (1.5-8.5); NEUTROPHILS % 83.3 % (36.0-66.0); PLATELET COUNT, AUTOMATED 245 10^3/uL (150-450); RED BLOOD COUNT 3.16 10^6/uL (4.30-6.10); WHITE BLOOD COUNT 14.5 10^3/uL (4.0-10.0)
[2023-03-20] MEDS: LEVOTHYROXINE 100MCG TABLET (0.1MG) PO SCH (06:18)
[2023-03-20] MEDS: LEVOTHYROXINE 75MCG TABLET (0.075MG) PO SCH (06:18)
[2023-03-20 06:23] LABS: CPK CREATINE PHOSPHOKINASE 21 U/L (46-171)
[2023-03-20 06:43] LABS: BLOOD UREA NITROGEN 48 MG/DL (9-23); CALCIUM LEVEL 8.7 MG/DL (8.3-10.6); CARBON DIOXIDE LEVEL > 40.0 MMOL/L (20-31); CHLORIDE LEVEL 100 MMOL/L (98-107); CK-MB VALUE MASS < 1.0 NG/ML (<3.6); CREATININE FOR GFR 1.79 MG/DL (0.70-1.30); GLOMERULAR FILTRATION RATE 39.9 (>42); GLUCOSE, FASTING 110 MG/DL (74-106); MAGNESIUM LEVEL 2.4 MG/DL (1.8-2.4); MB/CK RELATIVE INDEX 4.76 (< OR =4); POTASSIUM SERUM 4.4 MMOL/L (3.5-5.1); SODIUM LEVEL 140 MMOL/L (136-145)
[2023-03-20] MEDS ORDERED: DOXYCYCLINE HYCLATE 100 MG in D5W MINI-BAG PLUS 100 ML IV SCH (07:05)
[2023-03-20] MEDS ORDERED: zolPIDEM TARTRATE 5 MG TAB PO PRN (08:25)
[2023-03-20] MEDS ORDERED: DOXYCYCLINE HYCLATE 100MG TABLET PO SCH (09:00)
[2023-03-20] MEDS: DOXYCYCLINE HYCLATE 100MG TABLET PO SCH ×2 (09:16→21:07)
[2023-03-20] MEDS: FERROUS SULFATE 325MG TAB PO SCH (09:16)
[2023-03-20] MEDS: FEBUXOSTAT 40 MG TABLET (ULORIC) PO SCH (09:17)
[2023-03-20] MEDS: SUCRALFATE 1 GM TAB PO SCH (09:17)
[2023-03-20] MEDS: TAMOXIFEN CITRATE 10 MG TAB PO SCH (09:17)
[2023-03-20] MEDS: METOPROLOL TART 50 MG TAB PO SCH ×3 (13:37→23:52)
[2023-03-20] MEDS ORDERED: cefTRIAXone SOD 2 GM in D5W MINI-BAG PLUS 50 ML IV SCH (18:00)
[2023-03-21] VITALS (13 sets, daily range): BP systolic 112–133; BP diastolic 58–62; O2SAT 91–99
[2023-03-21 04:11] LABS: BASO % 0.3 % (0.0-1.0); EOS # 0.3 10^3/uL (0.0-0.5); EOS % 2.9 % (0.0-3.0); HEMOGLOBIN 8.3 g/dl (13.5-17.5); LYMPH # 0.9 10^3/uL (1.5-5.0); LYMPH % 7.7 % (24.0-44.0); MEAN CORPUSCULAR HEMOGLOBIN 26.9 pg (27.0-33.0); MEAN CORPUSCULAR HGB CONC 27.7 g/dl (32.0-36.5); MEAN CORPUSCULAR VOLUME 97.4 fl (80.0-96.0); MONO # 0.7 10^3/uL (0.0-0.8); MONO % 6.3 % (2.0-8.0); NEUTROPHILS # 9.5 10^3/uL (1.5-8.5); NEUTROPHILS % 82.2 % (36.0-66.0); PLATELET COUNT, AUTOMATED 241 10^3/uL (150-450); RED BLOOD COUNT 3.08 10^6/uL (4.30-6.10); WHITE BLOOD COUNT 11.5 10^3/uL (4.0-10.0)
[2023-03-21 04:36] LABS: CALCIUM LEVEL 8.2 MG/DL (8.3-10.6); CREATININE FOR GFR 1.9 MG/DL (0.70-1.30); GLOMERULAR FILTRATION RATE 37.3 (>42); MAGNESIUM LEVEL 2.5 MG/DL (1.8-2.4)
[2023-03-21] MEDS: GABAPENTIN 300 MG CAP PO SCH (05:26)
[2023-03-21] MEDS: LEVOTHYROXINE 100MCG TABLET (0.1MG) PO SCH (05:26)
[2023-03-21] MEDS: LEVOTHYROXINE 75MCG TABLET (0.075MG) PO SCH (05:26)
[2023-03-21] MEDS: PIPERACILLIN/TAZOBACTAM SOD 4.5 GM in D5W MINI-BAG PLUS 50 ML IV SCH (05:26)
[2023-03-21] MEDS: METOPROLOL TART 50 MG TAB PO SCH (05:26)
[2023-03-21] MEDS ORDERED: FUROSEMIDE 20MG/2ML VIAL IV ONE (07:10)
[2023-03-21] MEDS: guaiFENesin ER 600 MG TAB PO SCH (08:50)
[2023-03-21] MEDS: FERROUS SULFATE 325MG TAB PO SCH (08:50)
[2023-03-21] MEDS: FEBUXOSTAT 40 MG TABLET (ULORIC) PO SCH (08:51)
[2023-03-21] MEDS: SUCRALFATE 1 GM TAB PO SCH (08:51)
[2023-03-21] MEDS: APIXABAN 5 MG TAB (ELIQUIS) PO SCH (08:51)
[2023-03-21] MEDS: DOXYCYCLINE HYCLATE 100MG TABLET PO SCH (08:52)
[2023-03-21] MEDS: TAMOXIFEN CITRATE 10 MG TAB PO SCH (08:52)
[2023-03-21] MEDS ORDERED: AMOX875T2 PO (08:57)
[2023-03-21] MEDS ORDERED: PANTOPRAZOLE 20 MG TAB PO SCH (09:00)
[2023-03-21] MEDS ORDERED: METO25TA PO (09:06)
== END 2023-03-21 10:55 | disposition home health service (06) | DRG 871 ==
LOC: M ED 16:46 → M ED INP 18:24 → M PCU 22:15
PROVIDERS: ADMIT Family Medicine; ATTEND Internal Medicine
DX: A41.9 Sepsis, unspecified organism (principal); J15.6 Pneumonia due to other Gram-negative bacteria; I50.33 Acute on chronic diastolic (congestive) heart failure; J96.21 Acute and chronic respiratory failure with hypoxia; I13.0 Hypertensive heart and chronic kidney disease with heart failure and stage 1 through stage 4 chronic kidney disease, or unspecified chronic kidney disease; I27.20 Pulmonary hypertension, unspecified; Z99.81 Dependence on supplemental oxygen; N18.30 Chronic kidney disease, stage 3 unspecified; I73.9 Peripheral vascular disease, unspecified; E78.5 Hyperlipidemia, unspecified; Z85.46 Personal history of malignant neoplasm of prostate; I48.0 Paroxysmal atrial fibrillation; Z79.01 Long term (current) use of anticoagulants; I25.10 Atherosclerotic heart disease of native coronary artery without angina pectoris; Z85.3 Personal history of malignant neoplasm of breast; Z88.8 Allergy status to other drugs, medicaments and biological substances; Z79.899 Other long term (current) drug therapy; Z95.2 Presence of prosthetic heart valve; D64.9 Anemia, unspecified; E03.9 Hypothyroidism, unspecified; G62.9 Polyneuropathy, unspecified; M10.9 Gout, unspecified; G47.00 Insomnia, unspecified; K21.9 Gastro-esophageal reflux disease without esophagitis; E66.01 Morbid (severe) obesity due to excess calories; J44.9 Chronic obstructive pulmonary disease, unspecified

== ENCOUNTER → 2023-03-24 | Outpatient (REF) | payer MEDICARE ==
[~2023-03-24] MED LIST changes: +AMOX875T2 PO; +DOK100TA2 PO; +METO25TA PO; +NITR100C2 PO; +ZOLP5TAB PO
[2023-03-24 14:37] LABS: CREATININE FOR GFR 1.64 MG/DL (0.70-1.30); GLOMERULAR FILTRATION RATE 44.2 (>42)
== END ==
LOC: M SHH 13:25
PROVIDERS: ATTEND Internal Medicine
DX: N17.9 Acute kidney failure, unspecified (principal)

== ENCOUNTER → 2023-04-13 | Outpatient (REF) | payer MEDICARE ==
[2023-04-13 16:20] LABS: HEMATOCRIT 34.4 % (42.0-52.0); HEMOGLOBIN 9.8 g/dl (13.5-17.5); MEAN CORPUSCULAR HEMOGLOBIN 26.6 pg (27.0-33.0); MEAN CORPUSCULAR HGB CONC 28.5 g/dl (32.0-36.5); MEAN CORPUSCULAR VOLUME 93.5 fl (80.0-96.0); PLATELET COUNT, AUTOMATED 263 10^3/uL (150-450); RED BLOOD COUNT 3.68 10^6/uL (4.30-6.10); WHITE BLOOD COUNT 7.4 10^3/uL (4.0-10.0)
[2023-04-13 16:31] LABS: URIC ACID 6.2 MG/DL (3.7-9.2)
[2023-04-13 16:34] LABS: ALBUMIN 3.2 G/DL (3.2-5.2); ALKALINE PHOSPHATASE 58 U/L (46-116); ALT/SGPT < 9 U/L (7.0-40); AST/SGOT < 8 U/L (<34); BILIRUBIN,TOTAL 0.4 MG/DL (0.3-1.2); BLOOD UREA NITROGEN 40 MG/DL (9-23); CALCIUM LEVEL 8.5 MG/DL (8.3-10.6); CARBON DIOXIDE LEVEL 40 MMOL/L (20-31); CHLORIDE LEVEL 96 MMOL/L (98-107); CREATININE FOR GFR 1.48 MG/DL (0.70-1.30); GLOMERULAR FILTRATION RATE 49.7 (>42); GLUCOSE, FASTING 76 MG/DL (74-106); POTASSIUM SERUM 3.7 MMOL/L (3.5-5.1); SODIUM LEVEL 142 MMOL/L (136-145); TOTAL IRON BINDING CAPACITY 390 UG/DL (250-425); TOTAL PROTEIN 7.1 G/DL (5.7-8.2)
[2023-04-13 16:35] LABS: IRON (FE) 37 UG/DL (65-175); PERCENT SATURATION 9.5 % (19.7-50.0)
[2023-04-13 16:38] LABS: FERRITIN 17.7 NG/ML (10.5-307.3)
== END ==
LOC: M SFHCADAM 13:44
PROVIDERS: ATTEND Family Medicine
DX: I27.20 Pulmonary hypertension, unspecified (principal); D50.9 Iron deficiency anemia, unspecified; M10.00 Idiopathic gout, unspecified site; I50.9 Heart failure, unspecified

== ENCOUNTER → 2023-05-25 | Outpatient (CLI) | payer MEDICARE, OTHER ==
[2023-05-25 14:44] LABS: HEMATOCRIT 33.9 % (42.0-52.0); HEMOGLOBIN 9.5 g/dl (13.5-17.5); MEAN CORPUSCULAR HEMOGLOBIN 27.1 pg (27.0-33.0); MEAN CORPUSCULAR VOLUME 96.9 fl (80.0-96.0); PLATELET COUNT, AUTOMATED 214 10^3/uL (150-450); WHITE BLOOD COUNT 7.7 10^3/uL (4.0-10.0)
[2023-05-25 14:52] LABS: APPEARANCE, URINE HAZY (CLEAR); BACTERIA, URINE AUTO NEGATIVE (NEGATIVE); BILIRUBIN, URINE AUTO NEGATIVE (NEGATIVE); BLOOD, URINE BLOOD 1+ (NEGATIVE); COLOR, URINE YELLOW (YELLOW); GLUCOSE, URINE (UA) AUTO NEGATIVE (NEGATIVE); KETONE, URINE AUTO NEGATIVE (NEGATIVE); LEUKOCYTE ESTERASE, URINE AUTO 1+ (NEGATIVE); MUCUS, URINE SMALL (NEGATIVE); NITRITE, URINE AUTO NEGATIVE (NEGATIVE); PROTEIN, URINE AUTO 1+ mg/dL (NEGATIVE); RBC, URINE AUTO 6 /HPF (0-3); SPECIFIC GRAVITY URINE AUTO 1.011 (1.002-1.035); SQUAMOUS EPITHELIAL CELL UR AU 1 /HPF (0-6); UROBILINOGEN, URINE AUTO 0.2 mg/dL (0.0-2.0); WBC, URINE AUTO 7 /HPF (0-3)
[2023-05-25 15:31] LABS: HEMOGLOBIN A1c 5.2 % (4.0-6.0)
[2023-05-25 15:40] LABS: BILIRUBIN,TOTAL 0.3 MG/DL (0.3-1.2); CALCIUM LEVEL 8.2 MG/DL (8.3-10.6); CREATININE FOR GFR 1.43 MG/DL (0.70-1.30); GLOMERULAR FILTRATION RATE 51.8 (>42); TOTAL PROTEIN 6.6 G/DL (5.7-8.2)
[2023-05-25 15:42] LABS: THYROID STIMULATING HORMONE 5.92 uIU/ML (0.55-4.78)
[2023-05-25 15:43] LABS: FREE T4 0.91 NG/DL (0.89-1.76)
== END ==
LOC: M PLALAB 10:56
PROVIDERS: ATTEND Family Medicine
DX: R40.4 Transient alteration of awareness (principal); N18.32 Chronic kidney disease, stage 3b; R73.03 Prediabetes; E03.9 Hypothyroidism, unspecified; I48.0 Paroxysmal atrial fibrillation; I50.9 Heart failure, unspecified

== ENCOUNTER → 2023-09-06 | Outpatient (REF) | payer MEDICARE, OTHER ==
[~2023-09-06] MED LIST changes: +LORA-1041 PO; -LORA-674 PO
[2023-09-06 16:25] LABS: URIC ACID 5.5 MG/DL (3.7-9.2)
[2023-09-06 16:28] LABS: ALBUMIN 3.2 G/DL (3.2-5.2); BILIRUBIN,TOTAL 0.3 MG/DL (0.3-1.2); CALCIUM LEVEL 8.7 MG/DL (8.3-10.6); CHOLESTEROL RISK RATIO 3.97 (<5); CREATININE FOR GFR 1.71 MG/DL (0.70-1.30); GLOMERULAR FILTRATION RATE 42.1 (>42); HDL CHOLESTEROL 40.3 MG/DL (>40); LDL CHOLESTEROL 75.9 MG/DL (<100); NON-HDL-C 119.7 MG/DL; POTASSIUM SERUM 4.3 MMOL/L (3.5-5.1); TOTAL PROTEIN 7.4 G/DL (5.7-8.2)
[2023-09-06 16:29] LABS: HEMOGLOBIN A1c 5.1 % (4.0-6.0)
[2023-09-06 16:30] LABS: FREE T4 1.56 NG/DL (0.89-1.76); THYROID STIMULATING HORMONE 0.958 uIU/ML (0.55-4.78)
== END ==
LOC: M SFHCADAM 13:40
PROVIDERS: ATTEND Family Medicine
DX: J96.11 Chronic respiratory failure with hypoxia (principal); J96.12 Chronic respiratory failure with hypercapnia; E03.9 Hypothyroidism, unspecified; M10.00 Idiopathic gout, unspecified site; E78.2 Mixed hyperlipidemia; R73.03 Prediabetes

== ENCOUNTER → 2023-12-06 | Outpatient (CLI) | payer MEDICARE, OTHER ==
[2023-12-06 14:22] LABS: HEMATOCRIT 36.5 % (42.0-52.0); HEMOGLOBIN 10.4 g/dl (13.5-17.5); MEAN CORPUSCULAR HGB CONC 28.5 g/dl (32.0-36.5); MEAN CORPUSCULAR VOLUME 94.8 fl (80.0-96.0); PLATELET COUNT, AUTOMATED 259 10^3/uL (150-450); RED BLOOD COUNT 3.85 10^6/uL (4.30-6.10); WHITE BLOOD COUNT 9.8 10^3/uL (4.0-10.0)
[2023-12-06 14:54] LABS: ALBUMIN 3.3 G/DL (3.2-5.2); BILIRUBIN,TOTAL 0.3 MG/DL (0.3-1.2); CALCIUM LEVEL 8.7 MG/DL (8.3-10.6); CREATININE FOR GFR 1.44 MG/DL (0.70-1.30); GLOMERULAR FILTRATION RATE 51.2 (>42); PERCENT SATURATION 8.1 % (19.7-50.0); TOTAL PROTEIN 7.1 G/DL (5.7-8.2)
== END ==
LOC: M PLALAB 11:52
PROVIDERS: ATTEND Internal Medicine Cardiovascular Disease
DX: I50.32 Chronic diastolic (congestive) heart failure (principal); D50.9 Iron deficiency anemia, unspecified

== ENCOUNTER → 2024-02-09 | Outpatient (REF) | payer MEDICARE, OTHER ==
[~2024-02-09] MED LIST changes: +METO200T15 PO; -METO200T28 PO
[2024-02-09 18:56] LABS: HEMATOCRIT 37.4 % (42.0-52.0); HEMOGLOBIN 10.3 g/dl (13.5-17.5); MEAN CORPUSCULAR HEMOGLOBIN 27.5 pg (27.0-33.0); MEAN CORPUSCULAR HGB CONC 27.5 g/dl (32.0-36.5); PLATELET COUNT, AUTOMATED 253 10^3/uL (150-450); RED BLOOD COUNT 3.74 10^6/uL (4.30-6.10); WHITE BLOOD COUNT 9.6 10^3/uL (4.0-10.0)
[2024-02-09 19:23] LABS: HEMOGLOBIN A1c 5.3 % (4.0-6.0)
[2024-02-09 19:24] LABS: ALBUMIN 2.9 G/DL (3.2-5.2); BILIRUBIN,TOTAL 0.3 MG/DL (0.3-1.2); CALCIUM LEVEL 8.9 MG/DL (8.3-10.6); CREATININE FOR GFR 1.59 MG/DL (0.70-1.30); GLOMERULAR FILTRATION RATE 45.7 (>42); PERCENT SATURATION 5.2 % (19.7-50.0); POTASSIUM SERUM 4.8 MMOL/L (3.5-5.1); THYROID STIMULATING HORMONE 1.922 uIU/ML (0.55-4.78); TOTAL PROTEIN 6.6 G/DL (5.7-8.2)
[2024-02-09 19:25] LABS: FERRITIN 13.5 NG/ML (10.5-307.3); FREE T4 1.42 NG/DL (0.89-1.76)
== END ==
LOC: M SFHCADAM 14:40
PROVIDERS: ATTEND Family Medicine
DX: N18.32 Chronic kidney disease, stage 3b (principal); D63.8 Anemia in other chronic diseases classified elsewhere; E03.9 Hypothyroidism, unspecified; R73.03 Prediabetes; I27.20 Pulmonary hypertension, unspecified; I50.9 Heart failure, unspecified

== ENCOUNTER → 2024-05-10 | Outpatient (REF) | payer MEDICARE, OTHER ==
[2024-05-10 13:40] LABS: HEMATOCRIT 38.6 % (42.0-52.0); MEAN CORPUSCULAR HEMOGLOBIN 28.3 pg (27.0-33.0); MEAN CORPUSCULAR HGB CONC 28.5 g/dl (32.0-36.5); MEAN CORPUSCULAR VOLUME 99.2 fl (80.0-96.0); PLATELET COUNT, AUTOMATED 270 10^3/uL (150-450); RED BLOOD COUNT 3.89 10^6/uL (4.30-6.10); WHITE BLOOD COUNT 10.5 10^3/uL (4.0-10.0)
[2024-05-10 14:25] LABS: HEMOGLOBIN A1c 5.2 % (4.0-6.0); THYROID STIMULATING HORMONE 2.866 uIU/ML (0.55-4.78)
[2024-05-10 14:27] LABS: FREE T4 1.57 NG/DL (0.89-1.76)
[2024-05-10 14:34] LABS: ALBUMIN 3.2 G/DL (3.2-5.2); BILIRUBIN,TOTAL 0.3 MG/DL (0.3-1.2); CALCIUM LEVEL 9.1 MG/DL (8.3-10.6); CHOLESTEROL RISK RATIO 3.55 (<5); CREATININE FOR GFR 1.66 MG/DL (0.70-1.30); GLOMERULAR FILTRATION RATE 43.4 (>42); HDL CHOLESTEROL 42.5 MG/DL (>40); LDL CHOLESTEROL 79.9 MG/DL (<100); NON-HDL-C 108.5 MG/DL; POTASSIUM SERUM 4.7 MMOL/L (3.5-5.1)
== END ==
LOC: M SFHCADAM 10:40
PROVIDERS: ATTEND Family Medicine
DX: J96.11 Chronic respiratory failure with hypoxia (principal); R73.03 Prediabetes; E03.9 Hypothyroidism, unspecified

== ENCOUNTER → 2024-06-21 | Outpatient (CLI) | payer MEDICARE, OTHER ==
[~2024-06-21] MED LIST changes: +AMOX500T2 PO; +DICL20GE TOP; +FLUT15.820 NARES; +GABA-1490 PO; -GABA600T4 PO; +HYDR-4514 PO; +METO50TA7 PO; +SANT250O8 TOP; +SEMA1.7P SC; +TACR0.1O TOP; +TORS100T PO
== END ==
LOC: M RAD 13:52
PROVIDERS: ATTEND Physician Assistant
DX: L97.912 Non-pressure chronic ulcer of unspecified part of right lower leg with fat layer exposed (principal); I77.1 Stricture of artery

== ENCOUNTER 2024-06-28 17:01 | Inpatient (IN) | payer MEDICARE, OTHER ==
[2024-06-28] VITALS (13 sets, daily range): BP systolic 73–124; BP diastolic 39–59; TEMP 97.1; O2SAT 40–98
[~2024-06-28] VITALS: Ht 180.3 cm; Wt 107.0 kg
[~2024-06-28 17:01] MED LIST changes: -AMOX500T2 PO; -DICL20GE TOP; -FLUT15.820 NARES; -HYDR-4514 PO; -METO50TA7 PO; -SANT250O8 TOP; -SEMA1.7P SC; -TACR0.1O TOP; -TORS100T PO
[2024-06-28 17:40] LABS: BASO # 0.1 10^3/uL (0.0-0.2); BASO % 0.3 % (0.0-1.0); EOS # 0.1 10^3/uL (0.0-0.5); EOS % 0.4 % (0.0-3.0); HEMATOCRIT 39.3 % (42.0-52.0); HEMOGLOBIN 11.3 g/dl (13.5-17.5); LYMPH # 0.7 10^3/uL (1.5-5.0); LYMPH % 4.3 % (24.0-44.0); MEAN CORPUSCULAR HGB CONC 28.8 g/dl (32.0-36.5); MEAN CORPUSCULAR VOLUME 100.8 fl (80.0-96.0); MONO # 0.8 10^3/uL (0.0-0.8); MONO % 4.6 % (2.0-8.0); NEUTROPHILS # 15.2 10^3/uL (1.5-8.5); NEUTROPHILS % 89.9 % (36.0-66.0); PLATELET COUNT, AUTOMATED 256 10^3/uL (150-450); WHITE BLOOD COUNT 16.9 10^3/uL (4.0-10.0)
[2024-06-28] MEDS: NS 500 ML IV ONE (17:41)
[2024-06-28] MEDS: ACETAMINOPHEN *IV* 1,000 MG in IV 1 EA IV ONE (17:41)
[2024-06-28] MEDS: CEFEPIME HCL 2 GM in D5W MINI-BAG PLUS 50 ML IV ONE (18:10)
[2024-06-28 18:24] LABS: ALBUMIN 3.4 G/DL (3.2-5.2); BILIRUBIN,DIRECT 0.2 MG/DL (<0.4); BILIRUBIN,TOTAL 0.4 MG/DL (0.3-1.2); THYROID STIMULATING HORMONE 0.822 uIU/ML (0.55-4.78); TOTAL PROTEIN 7.6 G/DL (5.7-8.2)
[2024-06-28 20:14] LABS: ABG BASE EXCESS 5.7 (-2.0-2.0); ABG HCO3 37.2 MMOL/L (22.0-26.0); ABG O2 SATURATION 97.3 % (95.0-99.0); ABG PARTIAL PRESSURE O2 114.6 mmHg (75.0-100.0); ABG STANDARD HCO3 29.6 MMOL/L. (22.0-26.0); ABG TOTAL CO2 40.4 MMOL/L (23.0-31.0)
[2024-06-28 20:15] LABS: ABG pH (ARTERIAL) 7.165 UNITS (7.350-7.450)
[2024-06-28 20:17] LABS: ABG PARTIAL PRESSURE CO2 105.5 mmHg (35.0-45.0)
[2024-06-28 22:10] LABS: ABG BASE EXCESS 6.6 (-2.0-2.0); ABG HCO3 36.8 MMOL/L (22.0-26.0); ABG O2 SATURATION 93.9 % (95.0-99.0); ABG PARTIAL PRESSURE O2 76.8 mmHg (75.0-100.0); ABG STANDARD HCO3 30.4 MMOL/L. (22.0-26.0); ABG TOTAL CO2 39.6 MMOL/L (23.0-31.0); ABG pH (ARTERIAL) 7.222 UNITS (7.350-7.450)
[2024-06-28 22:11] LABS: ABG PARTIAL PRESSURE CO2 91.5 mmHg (35.0-45.0)
[2024-06-28 23:31] LABS: ABG BASE EXCESS 8.4 (-2.0-2.0); ABG O2 SATURATION 95.1 % (95.0-99.0); ABG PARTIAL PRESSURE O2 75.1 mmHg (75.0-100.0); ABG STANDARD HCO3 32.2 MMOL/L. (22.0-26.0); ABG TOTAL CO2 40.7 MMOL/L (23.0-31.0); ABG pH (ARTERIAL) 7.257 UNITS (7.350-7.450)
[2024-06-28 23:33] LABS: HEMATOCRIT 39.1 % (42.0-52.0); MEAN CORPUSCULAR HEMOGLOBIN 28.7 pg (27.0-33.0); MEAN CORPUSCULAR HGB CONC 28.1 g/dl (32.0-36.5); MEAN CORPUSCULAR VOLUME 102.1 fl (80.0-96.0); PLATELET COUNT, AUTOMATED 232 10^3/uL (150-450); RED BLOOD COUNT 3.83 10^6/uL (4.30-6.10)
[2024-06-28 23:33] LABS: ABG PARTIAL PRESSURE CO2 87.3 mmHg (35.0-45.0)
[2024-06-28] MEDS: NOREPINEPHRINE 4MG IN D5 250ML 4 MG in IV 1 EA IV SCH (23:42)
[2024-06-29] VITALS (111 sets, daily range): BP systolic 75–129; BP diastolic 37–64; TEMP 96.7–98.3; O2SAT 88–98
[2024-06-29] MEDS: propofoL 1,000 MG in IV 1 EA IV SCH (00:05)
[2024-06-29] MEDS: MIDAZOLAM INJ 2MG/2ML VIAL IV STA (00:06)
[2024-06-29] MEDS: dexAMETHasone 20MG/5ML VIAL IV ONE (00:06)
[2024-06-29] MEDS ORDERED: FENTANYL DRIP LOCK BOX KEY 1 EACH XX PRN (00:40)
[2024-06-29] MEDS: ETOMIDATE INJ 20MG/10ML VIAL IV STA (00:42)
[2024-06-29] MEDS: SUCCINYLCHOLINE INJ 200MG/10ML VIAL IV STA (00:43)
[2024-06-29] MEDS: VANCOMYCIN HCL 1,000 MG, VIAL MATE ADAPTER 1 EACH in D5W 250 ML IV ONE (00:43)
[2024-06-29 01:04] LABS: ABG BASE EXCESS 5.2 (-2.0-2.0); ABG HCO3 32.3 MMOL/L (22.0-26.0); ABG O2 SATURATION 92.6 % (95.0-99.0); ABG PARTIAL PRESSURE O2 65.9 mmHg (75.0-100.0); ABG TOTAL CO2 34.1 MMOL/L (23.0-31.0); ABG pH (ARTERIAL) 7.345 UNITS (7.350-7.450)
[2024-06-29 01:06] LABS: ABG PARTIAL PRESSURE CO2 60.5 mmHg (35.0-45.0)
[2024-06-29] MEDS: MIDAZOLAM INJ 2MG/2ML VIAL IV PRN (01:11)
[2024-06-29] MEDS: fentaNYL CITRATE/NaCl 1,000 MCG in IV 1 EA IV SCH (01:12)
[2024-06-29] MEDS ORDERED: HEPARIN SOD (PORCINE) 5000UNITS/ML 1ML VIAL/SYRINGE SQ SCH (01:20)
[2024-06-29] MEDS: VANCOMYCIN HCL 750 MG, VIAL MATE ADAPTER 1 EACH in D5W 250 ML IV ONE (01:42)
[2024-06-29 02:50] LABS: ALBUMIN 3.1 G/DL (3.2-5.2); BILIRUBIN,TOTAL 0.7 MG/DL (0.3-1.2); CALCIUM LEVEL 8.7 MG/DL (8.3-10.6); CREATININE FOR GFR 1.69 MG/DL (0.70-1.30); GLOMERULAR FILTRATION RATE 42.6 (>42); POTASSIUM SERUM 5.3 MMOL/L (3.5-5.1); TOTAL PROTEIN 7.1 G/DL (5.7-8.2)
[2024-06-29] MEDS: AMPICILLIN SOD 2 GM in D5W MINI-BAG PLUS 100 ML IV SCH (02:53)
[2024-06-29] MEDS: IPRATROPIUM 0.5MG/ALBUTEROL 2.5MG INH SOL UD 3ML (DUONEB) NEB SCH (03:02)
[2024-06-29] MEDS ORDERED: GLUCAGON INJ 1MG VIAL SC PRN (04:05)
[2024-06-29] MEDS ORDERED: DEXTROSE 50% 50ML SYRINGE IV PRN (04:05)
[2024-06-29] MEDS ORDERED: GLUCOSE 4 GM CHEW PO PRN (04:05)
[2024-06-29 04:51] LABS: BASO % 0.2 % (0.0-1.0); HEMATOCRIT 35.5 % (42.0-52.0); HEMOGLOBIN 10.4 g/dl (13.5-17.5); LYMPH # 0.6 10^3/uL (1.5-5.0); LYMPH % 2.8 % (24.0-44.0); MEAN CORPUSCULAR HEMOGLOBIN 28.9 pg (27.0-33.0); MEAN CORPUSCULAR HGB CONC 29.3 g/dl (32.0-36.5); MEAN CORPUSCULAR VOLUME 98.6 fl (80.0-96.0); MONO # 0.4 10^3/uL (0.0-0.8); MONO % 1.8 % (2.0-8.0); NEUTROPHILS # 19.3 10^3/uL (1.5-8.5); NEUTROPHILS % 94.7 % (36.0-66.0); PLATELET COUNT, AUTOMATED 221 10^3/uL (150-450); WHITE BLOOD COUNT 20.3 10^3/uL (4.0-10.0)
[2024-06-29] MEDS: PATIROMER SORBITEX CALCIUM 8.4 GM POWDER PACKET (VELTASSA) XX ONE (05:02)
[2024-06-29] MEDS: CEFEPIME HCL 2 GM in D5W MINI-BAG PLUS 50 ML IV SCH (05:02)
[2024-06-29 05:34] LABS: ABG BASE EXCESS 6.6 (-2.0-2.0); ABG HCO3 33.7 MMOL/L (22.0-26.0); ABG O2 SATURATION 95.1 % (95.0-99.0); ABG PARTIAL PRESSURE O2 73.3 mmHg (75.0-100.0); ABG STANDARD HCO3 30.4 MMOL/L. (22.0-26.0); ABG TOTAL CO2 35.6 MMOL/L (23.0-31.0); ABG pH (ARTERIAL) 7.354 UNITS (7.350-7.450)
[2024-06-29 05:36] LABS: ABG PARTIAL PRESSURE CO2 61.9 mmHg (35.0-45.0)
[2024-06-29] MEDS: LR 1,000 ML IV ONE (06:19)
[2024-06-29] MEDS: VASOPRESSIN INJ 20 UNITS in NS 499 ML IV SCH (06:55)
[2024-06-29] MEDS: HYDROCORTISONE 100MG/2ML VIAL IV ONE (06:56)
[2024-06-29] MEDS: EPINEPHrine HCL INJ 1 MG in D5W 240 ML IV SCH (07:00)
[2024-06-29] MEDS ORDERED: PROPOFOL 1,000 MG/100 ML VIAL As Ordered ONE (08:17)
[2024-06-29] MEDS ORDERED: propofoL 1,000 MG in IV 1 EA IV SCH (08:20)
[2024-06-29] MEDS: DOPamine HCL 400 MG in IV 1 EA IV SCH (08:34)
[2024-06-29] MEDS: PANTOPRAZOLE 40MG VIAL IV SCH (08:34)
[2024-06-29] MEDS ORDERED: VANCOMYCIN HCL 1,000 MG, VIAL MATE ADAPTER 1 EACH in D5W 250 ML IV SCH (09:00)
[2024-06-29 09:06] LABS: VENOUS BASE EXCESS 4.4 (-2.0-2.0); VENOUS HCO3 30.5 MMOL/L (23.0-27.0); VENOUS O2 SATURATION 99.1 % (60.0-80.0); VENOUS PARTIAL PRESSURE CO2 52.8 mmHg (38.0-50.0); VENOUS STANDARD HCO3 28.5 MMOL/L; VENOUS TOTAL CO2 32.2 MMOL/L (24.0-28.0)
[2024-06-29] MEDS ORDERED: VANCOMYCIN HCL 750 MG, VIAL MATE ADAPTER 1 EACH in D5W 250 ML IV SCH (10:00)
[2024-06-29] MEDS: PIPERACILLIN/TAZOBACTAM SOD 4.5 GM in D5W MINI-BAG PLUS 50 ML IV SCH (10:35)
[2024-06-29] MEDS ORDERED: PIPERACILLIN/TAZOBACTAM SOD 4.5 GM in D5W MINI-BAG PLUS 50 ML IV SCH (11:00)
[2024-06-29] MEDS ORDERED: HYDR-4514 PO (12:10)
[2024-06-29] MEDS ORDERED: TORS100T PO ×2 (12:10)
[2024-06-29] MEDS ORDERED: SEMA1.7P SC (12:10)
[2024-06-29] MEDS ORDERED: VENTAER INH (12:10)
[2024-06-29] MEDS ORDERED: METO50TA7 PO (12:10)
[2024-06-29] MEDS ORDERED: DICL20GE TOP (12:14)
[2024-06-29] MEDS ORDERED: TACR0.1O TOP (12:14)
[2024-06-29] MEDS ORDERED: FLUT15.820 NARES (12:14)
[2024-06-29] MEDS ORDERED: SANT250O8 TOP (12:14)
[2024-06-29] MEDS ORDERED: HOME MED LIST COMPLETE! XX SCH (12:20)
[2024-06-29] MEDS: AMIODARONE HCL 150 MG in IV 1 EA IV ONE (12:55)
[2024-06-29] MEDS: AMIODARONE HCL 360 MG in IV 1 EA IV SCH ×2 (13:05→17:48)
[2024-06-29] MEDS: APIXABAN 5 MG TAB (ELIQUIS) PO SCH (13:56)
[2024-06-29] MEDS: HYDROCORTISONE 100MG/2ML VIAL IV SCH (17:13)
[2024-06-29 22:24] LABS: CALCIUM LEVEL 8.5 MG/DL (8.3-10.6); CREATININE FOR GFR 1.28 MG/DL (0.70-1.30); GLOMERULAR FILTRATION RATE 58.6 (>42); MAGNESIUM LEVEL 1.9 MG/DL (1.8-2.4); POTASSIUM SERUM 3.9 MMOL/L (3.5-5.1)
[2024-06-29 22:54] LABS: CK-MB VALUE MASS 9.9 NG/ML (<3.6); MB/CK RELATIVE INDEX 9.8 (< OR =4)
[2024-06-30] VITALS (95 sets, daily range): BP systolic 82–131; BP diastolic 45–73; TEMP 97.4–98.1; O2SAT 89–95
[2024-06-30] MEDS: HEPARIN DRIP 25,000 UNITS in IV 1 EA IV SCH (02:18)
[2024-06-30 04:33] LABS: VENOUS BASE EXCESS 5.3 (-2.0-2.0); VENOUS HCO3 31.4 MMOL/L (23.0-27.0); VENOUS O2 SATURATION 91.5 % (60.0-80.0); VENOUS PARTIAL PRESSURE CO2 53.6 mmHg (38.0-50.0); VENOUS PARTIAL PRESSURE O2 59.5 mmHg (30.0-50.0); VENOUS PH 7.386 UNITS (7.330-7.430); VENOUS STANDARD HCO3 29.1 MMOL/L; VENOUS TOTAL CO2 33.1 MMOL/L (24.0-28.0)
[2024-06-30 04:38] LABS: BASO % 0.1 % (0.0-1.0); HEMATOCRIT 34.3 % (42.0-52.0); HEMOGLOBIN 10.2 g/dl (13.5-17.5); LYMPH # 0.4 10^3/uL (1.5-5.0); LYMPH % 1.8 % (24.0-44.0); MEAN CORPUSCULAR HEMOGLOBIN 28.5 pg (27.0-33.0); MEAN CORPUSCULAR HGB CONC 29.7 g/dl (32.0-36.5); MEAN CORPUSCULAR VOLUME 95.8 fl (80.0-96.0); MONO # 0.8 10^3/uL (0.0-0.8); MONO % 3.9 % (2.0-8.0); NEUTROPHILS # 20.3 10^3/uL (1.5-8.5); NEUTROPHILS % 93.5 % (36.0-66.0); PLATELET COUNT, AUTOMATED 252 10^3/uL (150-450); RED BLOOD COUNT 3.58 10^6/uL (4.30-6.10); WHITE BLOOD COUNT 21.7 10^3/uL (4.0-10.0)
[2024-06-30 05:20] LABS: CPK CREATINE PHOSPHOKINASE 81 U/L (46-171)
[2024-06-30 05:24] LABS: ALBUMIN 2.6 G/DL (3.2-5.2); ALKALINE PHOSPHATASE 81 U/L (46-116); ALT/SGPT 15 U/L (7.0-40); AST/SGOT 33 U/L (<34); BILIRUBIN,TOTAL 0.4 MG/DL (0.3-1.2); BLOOD UREA NITROGEN 29 MG/DL (9-23); CALCIUM LEVEL 8.8 MG/DL (8.3-10.6); CARBON DIOXIDE LEVEL 31 MMOL/L (20-31); CHLORIDE LEVEL 101 MMOL/L (98-107); CK-MB VALUE MASS 7.1 NG/ML (<3.6); CREATININE FOR GFR 1.24 MG/DL (0.70-1.30); GLOMERULAR FILTRATION RATE > 60.0 (>42); GLUCOSE, FASTING 248 MG/DL (74-106); MAGNESIUM LEVEL 1.9 MG/DL (1.8-2.4); MB/CK RELATIVE INDEX 8.76 (< OR =4); PHOSPHORUS LEVEL 1.9 MG/DL (2.4-5.1); SODIUM LEVEL 139 MMOL/L (136-145); TOTAL PROTEIN 6.5 G/DL (5.7-8.2)
[2024-06-30 05:30] LABS: ABG BASE EXCESS 2.6 (-2.0-2.0); ABG HCO3 27.6 MMOL/L (22.0-26.0); ABG O2 SATURATION 94.7 % (95.0-99.0); ABG PARTIAL PRESSURE CO2 44.1 mmHg (35.0-45.0); ABG PARTIAL PRESSURE O2 72.7 mmHg (75.0-100.0); ABG STANDARD HCO3 26.8 MMOL/L. (22.0-26.0); ABG TOTAL CO2 28.9 MMOL/L (23.0-31.0); ABG pH (ARTERIAL) 7.414 UNITS (7.350-7.450)
[2024-06-30] MEDS: HEPARIN SOD (PORCINE) 5000UNITS/ML 1ML VIAL/SYRINGE IV PRN (09:29)
[2024-06-30] MEDS: dexmedeTOMidine 200 MCG in IV 1 EA IV SCH (11:00)
[2024-06-30] MEDS ORDERED: AMIODARONE HCL 150 MG/100 ML PREMIXED BAG (NEXTERONE) As Ordered ONE (16:04)
[2024-06-30] MEDS: AMIODARONE HCL 360 MG in IV 1 EA IV SCH ×2 (16:22→23:02)
[2024-06-30] MEDS: AMIODARONE HCL 150 MG in IV 1 EA IV ONE (16:22)
[2024-07-01] VITALS (89 sets, daily range): BP systolic 90–136; BP diastolic 48–78; TEMP 97.4–98.4; O2SAT 90–96
[2024-07-01] MEDS: LORazepam 2 MG/ML 1ML VIAL IV PRN (00:48)
[2024-07-01 05:17] LABS: INR 1.23; PARTIAL THROMBOPLASTIN TIME 58.9 SECONDS (24.8-34.2); PROTHROMBIN TIME 15.1 SECONDS (12.5-14.5)
[2024-07-01] MEDS ORDERED: MEROPENEM INJ 2 GM in NS 100 ML IV ONE (07:30)
[2024-07-01 08:12] LABS: BASO % 0.2 % (0.0-1.0); HEMOGLOBIN 9.5 g/dl (13.5-17.5); LYMPH % 6.1 % (24.0-44.0); MEAN CORPUSCULAR HEMOGLOBIN 28.4 pg (27.0-33.0); MEAN CORPUSCULAR HGB CONC 29.7 g/dl (32.0-36.5); MEAN CORPUSCULAR VOLUME 95.5 fl (80.0-96.0); MONO % 5.9 % (2.0-8.0); NEUTROPHILS # 14.8 10^3/uL (1.5-8.5); NEUTROPHILS % 86.8 % (36.0-66.0); PLATELET COUNT, AUTOMATED 213 10^3/uL (150-450); RED BLOOD COUNT 3.35 10^6/uL (4.30-6.10)
[2024-07-01] MEDS: MEROPENEM INJ 1 GM in IV 1 EA IV ONE ×2 (08:26→09:09)
[2024-07-01 08:41] LABS: ABG BASE EXCESS 4.7 (-2.0-2.0); ABG HCO3 28.2 MMOL/L (22.0-26.0); ABG O2 SATURATION 92.9 % (95.0-99.0); ABG PARTIAL PRESSURE CO2 37.3 mmHg (35.0-45.0); ABG STANDARD HCO3 28.6 MMOL/L. (22.0-26.0); ABG TOTAL CO2 29.3 MMOL/L (23.0-31.0); ABG pH (ARTERIAL) 7.496 UNITS (7.350-7.450)
[2024-07-01] MEDS: FUROSEMIDE 20MG/2ML VIAL IV ONE (09:00)
[2024-07-01 09:37] LABS: ALBUMIN 2.2 G/DL (3.2-5.2); ALKALINE PHOSPHATASE 70 U/L (46-116); ALT/SGPT 13 U/L (7.0-40); AST/SGOT 17 U/L (<34); BILIRUBIN,TOTAL 0.4 MG/DL (0.3-1.2); BLOOD UREA NITROGEN 27 MG/DL (9-23); CALCIUM LEVEL 8.5 MG/DL (8.3-10.6); CARBON DIOXIDE LEVEL 30 MMOL/L (20-31); CHLORIDE LEVEL 105 MMOL/L (98-107); CK-MB VALUE MASS 1.6 NG/ML (<3.6); CPK CREATINE PHOSPHOKINASE 24 U/L (46-171); GLOMERULAR FILTRATION RATE > 60.0 (>42); GLUCOSE, FASTING 197 MG/DL (74-106); MB/CK RELATIVE INDEX 6.66 (< OR =4); PHOSPHORUS LEVEL 1.7 MG/DL (2.4-5.1); SODIUM LEVEL 139 MMOL/L (136-145); TOTAL PROTEIN 5.8 G/DL (5.7-8.2)
[2024-07-01 12:00] LABS: INR 1.19; PARTIAL THROMBOPLASTIN TIME 57.3 SECONDS (24.8-34.2); PROTHROMBIN TIME 14.7 SECONDS (12.5-14.5)
[2024-07-01] MEDS: SODIUM PHOSPHATE INJ 30 MMOL in D5W 500 ML IV ONE (13:18)
[2024-07-01] MEDS ORDERED: AMIODARONE HCL 150 MG in IV 1 EA IV PRN ×2 (15:00→15:20)
[2024-07-01] MEDS: AMIODARONE HCL 150 MG in IV 1 EA IV PRN ×2 (16:17→22:11)
[2024-07-01] MEDS: METOPROLOL 5 MG/5 ML VIAL IV STA (17:01)
[2024-07-01] MEDS: MEROPENEM INJ 1 GM in IV 1 EA IV SCH (17:50)
[2024-07-02] VITALS (54 sets, daily range): BP systolic 90–168; BP diastolic 51–88; TEMP 96.7–98.2; O2SAT 92–98
[2024-07-02 04:54] LABS: BASO % 0.1 % (0.0-1.0); EOS % 0.3 % (0.0-3.0); HEMATOCRIT 28.9 % (42.0-52.0); HEMOGLOBIN 8.5 g/dl (13.5-17.5); LYMPH # 0.5 10^3/uL (1.5-5.0); LYMPH % 5.7 % (24.0-44.0); MEAN CORPUSCULAR HEMOGLOBIN 28.5 pg (27.0-33.0); MEAN CORPUSCULAR HGB CONC 29.4 g/dl (32.0-36.5); MONO # 0.5 10^3/uL (0.0-0.8); MONO % 5.1 % (2.0-8.0); NEUTROPHILS # 7.8 10^3/uL (1.5-8.5); NEUTROPHILS % 87.5 % (36.0-66.0); PLATELET COUNT, AUTOMATED 192 10^3/uL (150-450); RED BLOOD COUNT 2.98 10^6/uL (4.30-6.10); WHITE BLOOD COUNT 8.9 10^3/uL (4.0-10.0)
[2024-07-02 05:31] LABS: CK-MB VALUE MASS < 1.0 NG/ML (<3.6)
[2024-07-02 05:34] LABS: ALBUMIN 2.1 G/DL (3.2-5.2); ALKALINE PHOSPHATASE 66 U/L (46-116); ALT/SGPT 12 U/L (7.0-40); AST/SGOT 11 U/L (<34); BILIRUBIN,TOTAL 0.4 MG/DL (0.3-1.2); BLOOD UREA NITROGEN 29 MG/DL (9-23); CALCIUM LEVEL 8.2 MG/DL (8.3-10.6); CARBON DIOXIDE LEVEL 30 MMOL/L (20-31); CHLORIDE LEVEL 105 MMOL/L (98-107); CPK CREATINE PHOSPHOKINASE 17 U/L (46-171); CREATININE FOR GFR 1.24 MG/DL (0.70-1.30); GLOMERULAR FILTRATION RATE > 60.0 (>42); GLUCOSE, FASTING 169 MG/DL (74-106); MB/CK RELATIVE INDEX 5.88 (< OR =4); POTASSIUM SERUM 3.8 MMOL/L (3.5-5.1); SODIUM LEVEL 139 MMOL/L (136-145); TOTAL PROTEIN 5.6 G/DL (5.7-8.2)
[2024-07-02 06:20] LABS: ABG BASE EXCESS 4.2 (-2.0-2.0); ABG HCO3 28.4 MMOL/L (22.0-26.0); ABG O2 SATURATION 95.8 % (95.0-99.0); ABG PARTIAL PRESSURE CO2 41.1 mmHg (35.0-45.0); ABG PARTIAL PRESSURE O2 77.9 mmHg (75.0-100.0); ABG STANDARD HCO3 28.2 MMOL/L. (22.0-26.0); ABG TOTAL CO2 29.6 MMOL/L (23.0-31.0); ABG pH (ARTERIAL) 7.457 UNITS (7.350-7.450)
[2024-07-02] MEDS: AMIODARONE HCL 150 MG in IV 1 EA IV ONE (08:39)
[2024-07-02] MEDS: FUROSEMIDE 20MG/2ML VIAL IV ONE (08:41)
[2024-07-02] MEDS ORDERED: FUROSEMIDE 20MG/2ML VIAL IV ONE (09:00)
[2024-07-02] MEDS: METOPROLOL 5 MG/5 ML VIAL IV PRN ×2 (13:52→18:50)
[2024-07-02] MEDS: IPRATROPIUM 0.02% SOLN 0.5MG 2.5ML NEB INH SCH (20:41)
[2024-07-02] MEDS: ACETAMINOPHEN *IV* 1,000 MG in IV 1 EA IV ONE (20:55)
[2024-07-03] VITALS (19 sets, daily range): BP systolic 78–135; BP diastolic 50–80; TEMP 97.7–98; O2SAT 90–98
[2024-07-03] MEDS: IPRATROPIUM 0.5MG/ALBUTEROL 2.5MG INH SOL UD 3ML (DUONEB) NEB ONE (05:22)
[2024-07-03 05:46] LABS: BASO % 0.2 % (0.0-1.0); EOS % 0.2 % (0.0-3.0); HEMATOCRIT 35.2 % (42.0-52.0); HEMOGLOBIN 10.1 g/dl (13.5-17.5); LYMPH # 0.6 10^3/uL (1.5-5.0); LYMPH % 6.9 % (24.0-44.0); MEAN CORPUSCULAR HEMOGLOBIN 28.4 pg (27.0-33.0); MEAN CORPUSCULAR HGB CONC 28.7 g/dl (32.0-36.5); MEAN CORPUSCULAR VOLUME 98.9 fl (80.0-96.0); MONO # 0.5 10^3/uL (0.0-0.8); MONO % 5.3 % (2.0-8.0); NEUTROPHILS # 7.1 10^3/uL (1.5-8.5); NEUTROPHILS % 84.4 % (36.0-66.0); PLATELET COUNT, AUTOMATED 224 10^3/uL (150-450); RED BLOOD COUNT 3.56 10^6/uL (4.30-6.10); WHITE BLOOD COUNT 8.4 10^3/uL (4.0-10.0)
[2024-07-03 06:09] LABS: CK-MB VALUE MASS 2.7 NG/ML (<3.6)
[2024-07-03 06:12] LABS: ALBUMIN 2.3 G/DL (3.2-5.2); BILIRUBIN,TOTAL 0.4 MG/DL (0.3-1.2); CALCIUM LEVEL 8.9 MG/DL (8.3-10.6); CREATININE FOR GFR 1.31 MG/DL (0.70-1.30); GLOMERULAR FILTRATION RATE 57.1 (>42); MAGNESIUM LEVEL 2.3 MG/DL (1.8-2.4); MB/CK RELATIVE INDEX 0.76 (< OR =4); POTASSIUM SERUM 3.9 MMOL/L (3.5-5.1)
[2024-07-03] MEDS: APIXABAN 5 MG TAB (ELIQUIS) PO SCH (12:07)
[2024-07-03] MEDS: METOPROLOL TART 25 MG TABLET PO ONE ×2 (12:08→16:39)
[2024-07-03] MEDS ORDERED: METOPROLOL TART 25 MG TABLET PO SCH ×2 (14:00→22:00)
[2024-07-03] MEDS: METOPROLOL TART 25 MG TABLET PO SCH (18:07)
[2024-07-04] VITALS (16 sets, daily range): BP systolic 92–123; BP diastolic 50–62; TEMP 97.1–98; O2SAT 90–99
[2024-07-04 05:48] LABS: BASO % 0.4 % (0.0-1.0); EOS # 0.2 10^3/uL (0.0-0.5); EOS % 1.6 % (0.0-3.0); HEMATOCRIT 35.9 % (42.0-52.0); HEMOGLOBIN 10.2 g/dl (13.5-17.5); LYMPH # 1.2 10^3/uL (1.5-5.0); LYMPH % 12.2 % (24.0-44.0); MEAN CORPUSCULAR HEMOGLOBIN 28.1 pg (27.0-33.0); MEAN CORPUSCULAR HGB CONC 28.4 g/dl (32.0-36.5); MEAN CORPUSCULAR VOLUME 98.9 fl (80.0-96.0); MONO # 0.6 10^3/uL (0.0-0.8); NEUTROPHILS # 7.8 10^3/uL (1.5-8.5); NEUTROPHILS % 77.7 % (36.0-66.0); PLATELET COUNT, AUTOMATED 275 10^3/uL (150-450); RED BLOOD COUNT 3.63 10^6/uL (4.30-6.10); WHITE BLOOD COUNT 10.1 10^3/uL (4.0-10.0)
[2024-07-04 06:34] LABS: ALBUMIN 2.4 G/DL (3.2-5.2); ALKALINE PHOSPHATASE 82 U/L (46-116); ALT/SGPT 23 U/L (7.0-40); AST/SGOT 30 U/L (<34); BILIRUBIN,TOTAL 0.3 MG/DL (0.3-1.2); BLOOD UREA NITROGEN 40 MG/DL (9-23); CALCIUM LEVEL 8.4 MG/DL (8.3-10.6); CARBON DIOXIDE LEVEL 32 MMOL/L (20-31); CHLORIDE LEVEL 106 MMOL/L (98-107); CREATININE FOR GFR 1.22 MG/DL (0.70-1.30); GLOMERULAR FILTRATION RATE > 60.0 (>42); GLUCOSE, FASTING 77 MG/DL (74-106); MAGNESIUM LEVEL 2.3 MG/DL (1.8-2.4); PHOSPHORUS LEVEL 3.8 MG/DL (2.4-5.1); POTASSIUM SERUM 4.2 MMOL/L (3.5-5.1); SODIUM LEVEL 140 MMOL/L (136-145); TOTAL PROTEIN 5.9 G/DL (5.7-8.2)
[2024-07-04] MEDS: METOPROLOL TART 25 MG TABLET PO SCH (13:47)
[2024-07-04] MEDS: AMPICILLIN SOD/SULBACTAM SOD 3 GM in D5W MINI-BAG PLUS 100 ML IV SCH (18:34)
[2024-07-04] MEDS: PERMETHRIN 5% CREAM 60 GM TOP ONE (21:03)
[2024-07-05] VITALS (10 sets, daily range): BP systolic 97–134; BP diastolic 50–73; TEMP 96.9–97.4; O2SAT 85–97
[2024-07-05] MEDS ORDERED: PERMETHRIN 5% CREAM 60 GM TOP SCH
[2024-07-05 05:11] LABS: HEMATOCRIT 39.6 % (42.0-52.0); HEMOGLOBIN 11.1 g/dl (13.5-17.5); MEAN CORPUSCULAR HEMOGLOBIN 27.8 pg (27.0-33.0); MEAN CORPUSCULAR VOLUME 99.2 fl (80.0-96.0); PLATELET COUNT, AUTOMATED 308 10^3/uL (150-450); RED BLOOD COUNT 3.99 10^6/uL (4.30-6.10); WHITE BLOOD COUNT 8.7 10^3/uL (4.0-10.0)
[2024-07-05 05:36] LABS: BLOOD UREA NITROGEN 36 MG/DL (9-23); CALCIUM LEVEL 8.8 MG/DL (8.3-10.6); CARBON DIOXIDE LEVEL 32 MMOL/L (20-31); CHLORIDE LEVEL 105 MMOL/L (98-107); CREATININE FOR GFR 1.24 MG/DL (0.70-1.30); GLOMERULAR FILTRATION RATE > 60.0 (>42); GLUCOSE, FASTING 81 MG/DL (74-106); SODIUM LEVEL 139 MMOL/L (136-145)
[2024-07-05 06:08] LABS: ANISOCYTOSIS 1+; ATYPICAL LYMPH 3 % (0-5); EOSINOPHILS 6 % (0-3); LYMPHOCYTES 14 % (16-44); MONOCYTES 5 % (0-5); NEUTROPHILS 71 % (28-66); PLATELET ESTIMATE NORMAL (NORMAL)
[2024-07-05 06:10] LABS: HYPOCHROMASIA 1+
[2024-07-05] MEDS: PANTOPRAZOLE 40MG TAB (PROTONIX) PO SCH (09:37)
[2024-07-05] MEDS: METOPROLOL 5 MG/5 ML VIAL IV PRN (09:37)
[2024-07-05] MEDS: FUROSEMIDE 40MG/4ML VIAL IV ONE (11:48)
[2024-07-05] MEDS: METOPROLOL TART 25 MG TABLET PO SCH (11:48)
[2024-07-05] MEDS: FLUTICASONE PROP 0.05% NASAL SPRAY 16 GM (FLONASE) NARES PRN (22:27)
[2024-07-05] MEDS: RAMELTEON 8 MG TAB (ROZEREM) PO ONE (22:27)
[2024-07-06 00:06] VITALS: BP 106/54; TEMP 96.9; O2SAT 92
[2024-07-06 04:21] VITALS: BP 120/62; TEMP 97; O2SAT 90
[2024-07-06 05:48] LABS: BASO % 0.4 % (0.0-1.0); EOS # 0.4 10^3/uL (0.0-0.5); HEMATOCRIT 38.5 % (42.0-52.0); HEMOGLOBIN 11.1 g/dl (13.5-17.5); MEAN CORPUSCULAR HGB CONC 28.8 g/dl (32.0-36.5); MONO # 0.5 10^3/uL (0.0-0.8); NEUTROPHILS # 7.9 10^3/uL (1.5-8.5); NEUTROPHILS % 77.9 % (36.0-66.0); PLATELET COUNT, AUTOMATED 300 10^3/uL (150-450); RED BLOOD COUNT 3.97 10^6/uL (4.30-6.10); WHITE BLOOD COUNT 10.1 10^3/uL (4.0-10.0)
[2024-07-06 06:16] LABS: BLOOD UREA NITROGEN 33 MG/DL (9-23); CARBON DIOXIDE LEVEL 32 MMOL/L (20-31); CHLORIDE LEVEL 105 MMOL/L (98-107); CREATININE FOR GFR 1.22 MG/DL (0.70-1.30); GLOMERULAR FILTRATION RATE > 60.0 (>42); GLUCOSE, FASTING 94 MG/DL (74-106); POTASSIUM SERUM 4.4 MMOL/L (3.5-5.1); SODIUM LEVEL 140 MMOL/L (136-145)
[2024-07-06 07:46] VITALS: BP 126/55; TEMP 96.9; O2SAT 97
[2024-07-06] MEDS: FUROSEMIDE 100MG/10ML VIAL IV ONE (08:30)
[2024-07-06 12:00] VITALS: BP 127/57; TEMP 97; O2SAT 96
[2024-07-06] MEDS ORDERED: ALBUTEROL 90 MCG/ACT 8GM HFA INHALER INH PRN (12:00)
[2024-07-06] MEDS: FUROSEMIDE 100MG/10ML VIAL IV SCH (16:11)
[2024-07-06 16:31] VITALS: BP 104/69; TEMP 96.9; O2SAT 93
[2024-07-06] MEDS: AUGMENTIN 500MG TAB PO SCH (17:27)
[2024-07-06 21:17] VITALS: BP 104/56; TEMP 97.3; O2SAT 95
[2024-07-07] VITALS (7 sets, daily range): BP systolic 105–123; BP diastolic 52–75; TEMP 96.8–98.4; O2SAT 93–100
[2024-07-07 08:41] LABS: BASO % 0.4 % (0.0-1.0); EOS # 0.3 10^3/uL (0.0-0.5); EOS % 3.4 % (0.0-3.0); HEMATOCRIT 38.8 % (42.0-52.0); HEMOGLOBIN 11.1 g/dl (13.5-17.5); LYMPH # 0.6 10^3/uL (1.5-5.0); LYMPH % 7.5 % (24.0-44.0); MEAN CORPUSCULAR HEMOGLOBIN 27.8 pg (27.0-33.0); MEAN CORPUSCULAR HGB CONC 28.6 g/dl (32.0-36.5); MONO # 0.4 10^3/uL (0.0-0.8); MONO % 5.2 % (2.0-8.0); NEUTROPHILS # 6.2 10^3/uL (1.5-8.5); PLATELET COUNT, AUTOMATED 285 10^3/uL (150-450); WHITE BLOOD COUNT 7.7 10^3/uL (4.0-10.0)
[2024-07-07 09:07] LABS: CALCIUM LEVEL 8.4 MG/DL (8.3-10.6); CREATININE FOR GFR 1.26 MG/DL (0.70-1.30); GLOMERULAR FILTRATION RATE 59.7 (>42); POTASSIUM SERUM 4.5 MMOL/L (3.5-5.1)
[2024-07-08] VITALS (7 sets, daily range): BP systolic 92–121; BP diastolic 51–58; TEMP 97.2–98.8; O2SAT 96–98
[2024-07-08 06:37] LABS: BASO % 0.6 % (0.0-1.0); EOS # 0.2 10^3/uL (0.0-0.5); EOS % 2.5 % (0.0-3.0); HEMATOCRIT 38.6 % (42.0-52.0); HEMOGLOBIN 11.1 g/dl (13.5-17.5); LYMPH # 0.6 10^3/uL (1.5-5.0); MEAN CORPUSCULAR HGB CONC 28.8 g/dl (32.0-36.5); MEAN CORPUSCULAR VOLUME 97.5 fl (80.0-96.0); MONO # 0.4 10^3/uL (0.0-0.8); MONO % 6.3 % (2.0-8.0); NEUTROPHILS # 5.6 10^3/uL (1.5-8.5); PLATELET COUNT, AUTOMATED 272 10^3/uL (150-450); RED BLOOD COUNT 3.96 10^6/uL (4.30-6.10); WHITE BLOOD COUNT 6.9 10^3/uL (4.0-10.0)
[2024-07-08 07:00] LABS: CALCIUM LEVEL 8.6 MG/DL (8.3-10.6); CREATININE FOR GFR 1.32 MG/DL (0.70-1.30); GLOMERULAR FILTRATION RATE 56.6 (>42); POTASSIUM SERUM 4.3 MMOL/L (3.5-5.1)
[2024-07-09 04:23] VITALS: BP 106/57; TEMP 97.6; O2SAT 96
[2024-07-09 08:00] VITALS: BP 114/54; TEMP 98; O2SAT 98
[2024-07-09] MEDS: SANTYL OINT 30GM TOP SCH (08:20)
[2024-07-09 08:21] LABS: BASO % 0.6 % (0.0-1.0); EOS # 0.2 10^3/uL (0.0-0.5); EOS % 2.3 % (0.0-3.0); HEMATOCRIT 38.7 % (42.0-52.0); HEMOGLOBIN 10.9 g/dl (13.5-17.5); LYMPH # 0.6 10^3/uL (1.5-5.0); LYMPH % 9.2 % (24.0-44.0); MEAN CORPUSCULAR HEMOGLOBIN 27.6 pg (27.0-33.0); MEAN CORPUSCULAR HGB CONC 28.2 g/dl (32.0-36.5); MONO # 0.4 10^3/uL (0.0-0.8); MONO % 5.6 % (2.0-8.0); NEUTROPHILS # 5.2 10^3/uL (1.5-8.5); NEUTROPHILS % 80.9 % (36.0-66.0); PLATELET COUNT, AUTOMATED 274 10^3/uL (150-450); RED BLOOD COUNT 3.95 10^6/uL (4.30-6.10); WHITE BLOOD COUNT 6.4 10^3/uL (4.0-10.0)
[2024-07-09 08:44] LABS: CALCIUM LEVEL 8.7 MG/DL (8.3-10.6); CREATININE FOR GFR 1.36 MG/DL (0.70-1.30); GLOMERULAR FILTRATION RATE 54.7 (>42); POTASSIUM SERUM 3.9 MMOL/L (3.5-5.1)
[2024-07-09 12:00] VITALS: BP 104/54; TEMP 98.5; O2SAT 97
[2024-07-09 12:29] VITALS: BP 124/56
[2024-07-09] MEDS ORDERED: AMOX500T2 PO (13:30)
== END 2024-07-09 15:02 | disposition home health service (06) | DRG 871 ==
LOC: M ED 17:01 → M ED INP 21:19 → M ICU 22:13 → M PCU 07-05 20:58
PROVIDERS: ADMIT Student in an Organized Health Care Education/Training Program; ATTEND Internal Medicine Nephrology
PROC: 05HM33Z Insertion of Infusion Device into Right Internal Jugular Vein, Percutaneous Approach (ICD-10-PCS; principal; 2024-06-29)
DX: A41.9 Sepsis, unspecified organism (principal); G93.41 Metabolic encephalopathy; J96.21 Acute and chronic respiratory failure with hypoxia; J18.9 Pneumonia, unspecified organism; J96.22 Acute and chronic respiratory failure with hypercapnia; R65.21 Severe sepsis with septic shock; R57.0 Cardiogenic shock; I50.30 Unspecified diastolic (congestive) heart failure; N39.0 Urinary tract infection, site not specified; N17.9 Acute kidney failure, unspecified; Z68.41 Body mass index [BMI] 40.0-44.9, adult; I48.92 Unspecified atrial flutter; I27.20 Pulmonary hypertension, unspecified; E87.5 Hyperkalemia; D53.9 Nutritional anemia, unspecified; E03.9 Hypothyroidism, unspecified; I12.9 Hypertensive chronic kidney disease with stage 1 through stage 4 chronic kidney disease, or unspecified chronic kidney disease; E11.22 Type 2 diabetes mellitus with diabetic chronic kidney disease; E11.51 Type 2 diabetes mellitus with diabetic peripheral angiopathy without gangrene; K21.9 Gastro-esophageal reflux disease without esophagitis; N18.30 Chronic kidney disease, stage 3 unspecified; I48.0 Paroxysmal atrial fibrillation; B96.20 Unspecified Escherichia coli [E. coli] as the cause of diseases classified elsewhere; Z85.3 Personal history of malignant neoplasm of breast; Z92.21 Personal history of antineoplastic chemotherapy; Z92.3 Personal history of irradiation; E66.01 Morbid (severe) obesity due to excess calories; G47.33 Obstructive sleep apnea (adult) (pediatric); Z91.148 Patient's other noncompliance with medication regimen for other reason; Z85.46 Personal history of malignant neoplasm of prostate; I87.2 Venous insufficiency (chronic) (peripheral); Z79.01 Long term (current) use of anticoagulants; E55.9 Vitamin D deficiency, unspecified; E78.5 Hyperlipidemia, unspecified; M10.9 Gout, unspecified; Z95.2 Presence of prosthetic heart valve; K57.90 Diverticulosis of intestine, part unspecified, without perforation or abscess without bleeding; I27.81 Cor pulmonale (chronic); Z99.81 Dependence on supplemental oxygen; I25.2 Old myocardial infarction; Z88.8 Allergy status to other drugs, medicaments and biological substances; Z79.899 Other long term (current) drug therapy; Z87.891 Personal history of nicotine dependence

== ENCOUNTER → 2024-06-28 | Outpatient (REF) | payer MEDICARE, OTHER ==
[2024-06-28 17:44] LABS: HEMOGLOBIN 10.6 g/dl (13.5-17.5); MEAN CORPUSCULAR HEMOGLOBIN 28.6 pg (27.0-33.0); MEAN CORPUSCULAR HGB CONC 27.9 g/dl (32.0-36.5); MEAN CORPUSCULAR VOLUME 102.7 fl (80.0-96.0); PLATELET COUNT, AUTOMATED 254 10^3/uL (150-450); WHITE BLOOD COUNT 9.4 10^3/uL (4.0-10.0)
[2024-06-28 17:50] LABS: CREATININE FOR GFR 1.55 MG/DL (0.70-1.30); POTASSIUM SERUM 4.8 MMOL/L (3.5-5.1)
[2024-06-28 17:52] LABS: ALBUMIN 3.2 G/DL (3.2-5.2); BILIRUBIN,TOTAL 0.3 MG/DL (0.3-1.2); CALCIUM LEVEL 9.2 MG/DL (8.3-10.6); CHOLESTEROL RISK RATIO 3.65 (<5); CREATININE FOR GFR 1.54 MG/DL (0.70-1.30); GLOMERULAR FILTRATION RATE 47.4 (>42); HDL CHOLESTEROL 39.4 MG/DL (>40); LDL CHOLESTEROL 62.2 MG/DL (<100); NON-HDL-C 104.6 MG/DL; POTASSIUM SERUM 4.8 MMOL/L (3.5-5.1); TOTAL PROTEIN 7.1 G/DL (5.7-8.2)
[2024-06-28 17:54] LABS: FERRITIN 23.3 NG/ML (10.5-307.3)
[2024-06-28 18:00] LABS: HEMOGLOBIN A1c 4.9 % (4.0-6.0)
== END ==
LOC: M SFHCADAM 12:03
PROVIDERS: ATTEND Family Medicine
DX: I87.313 Chronic venous hypertension (idiopathic) with ulcer of bilateral lower extremity (principal); N18.32 Chronic kidney disease, stage 3b; R73.03 Prediabetes; E03.9 Hypothyroidism, unspecified; D63.8 Anemia in other chronic diseases classified elsewhere

== ENCOUNTER → 2024-06-28 | Outpatient (REF) | payer MEDICARE, OTHER | LOC: M SFHCWOUN 17:21 | PROVIDERS: ATTEND Physician Assistant | DX: I87.313 Chronic venous hypertension (idiopathic) with ulcer of bilateral lower extremity (principal) ==

== ENCOUNTER 2024-07-12 01:43 | Inpatient (IN) | payer MEDICARE, OTHER ==
[2024-07-12] VITALS (37 sets, daily range): BP systolic 70–137; BP diastolic 40–98; TEMP 96.8–97.5; O2SAT 85–99
[~2024-07-12] VITALS: Ht 172.7 cm; Wt 129.9 kg
[~2024-07-12 01:43] MED LIST changes: +AMOX500T2 PO; +DICL20GE TOP; +FLUT15.820 NARES; +HYDR-4514 PO; +METO50TA7 PO; +SANT250O8 TOP; +SEMA1.7P SC; +TACR0.1O TOP; +TORS100T PO
[2024-07-12] MEDS: NS 1,000 ML IV ONE ×3 (01:55→05:17)
[2024-07-12 02:20] LABS: BASO # 0.1 10^3/uL (0.0-0.2); BASO % 0.4 % (0.0-1.0); EOS # 0.2 10^3/uL (0.0-0.5); HEMATOCRIT 35.8 % (42.0-52.0); HEMOGLOBIN 9.9 g/dl (13.5-17.5); LYMPH # 1.6 10^3/uL (1.5-5.0); LYMPH % 10.2 % (24.0-44.0); MEAN CORPUSCULAR HEMOGLOBIN 27.9 pg (27.0-33.0); MEAN CORPUSCULAR HGB CONC 27.7 g/dl (32.0-36.5); MEAN CORPUSCULAR VOLUME 100.8 fl (80.0-96.0); MONO # 1.1 10^3/uL (0.0-0.8); MONO % 7.2 % (2.0-8.0); NEUTROPHILS # 12.2 10^3/uL (1.5-8.5); NEUTROPHILS % 79.9 % (36.0-66.0); PLATELET COUNT, AUTOMATED 281 10^3/uL (150-450); RED BLOOD COUNT 3.55 10^6/uL (4.30-6.10); WHITE BLOOD COUNT 15.2 10^3/uL (4.0-10.0)
[2024-07-12 02:42] LABS: ABG BASE EXCESS -2.3 (-2.0-2.0); ABG HCO3 27.7 MMOL/L (22.0-26.0); ABG O2 SATURATION 94.3 % (95.0-99.0); ABG PARTIAL PRESSURE CO2 80.1 mmHg (35.0-45.0); ABG PARTIAL PRESSURE O2 84.1 mmHg (75.0-100.0); ABG STANDARD HCO3 22.5 MMOL/L. (22.0-26.0); ABG TOTAL CO2 30.2 MMOL/L (23.0-31.0); ABG pH (ARTERIAL) 7.157 UNITS (7.350-7.450)
[2024-07-12 02:44] LABS: LIPASE 80 U/L (12-53)
[2024-07-12] MEDS: PIPERACILLIN/TAZOBACTAM SOD 4.5 GM in D5W MINI-BAG PLUS 50 ML IV ONE (03:20)
[2024-07-12 03:32] LABS: PROCALCITONIN 0.54 ng/ml
[2024-07-12 03:35] LABS: MB/CK RELATIVE INDEX 1.2 (< OR =4)
[2024-07-12 03:35] LABS: ALBUMIN 2.7 G/DL (3.2-5.2); ALKALINE PHOSPHATASE 137 U/L (46-116); ALT/SGPT 38 U/L (7.0-40); AST/SGOT 46 U/L (<34); BILIRUBIN,DIRECT 0.3 MG/DL (<0.4); BILIRUBIN,TOTAL 0.6 MG/DL (0.3-1.2); BLOOD UREA NITROGEN 43 MG/DL (9-23); CALCIUM LEVEL 7.9 MG/DL (8.3-10.6); CARBON DIOXIDE LEVEL 31 MMOL/L (20-31); CHLORIDE LEVEL 98 MMOL/L (98-107); CK-MB VALUE MASS < 1.0 NG/ML (<3.6); CPK CREATINE PHOSPHOKINASE 30 U/L (46-171); CREATININE FOR GFR 3.31 MG/DL (0.70-1.30); GLOMERULAR FILTRATION RATE 19.6 (>42); GLUCOSE, FASTING 111 MG/DL (74-106); MB/CK RELATIVE INDEX 3.33 (< OR =4); POTASSIUM SERUM 4.4 MMOL/L (3.5-5.1); SODIUM LEVEL 134 MMOL/L (136-145); TOTAL PROTEIN 6.5 G/DL (5.7-8.2)
[2024-07-12] MEDS ORDERED: AMOX500T2 PO (04:33)
[2024-07-12] MEDS ORDERED: HOME MED LIST COMPLETE! XX SCH (04:35)
[2024-07-12] MEDS: methylPREDNISolone 40MG 1ML VIAL IV SCH (05:17)
[2024-07-12] MEDS: IPRATROPIUM 0.5MG/ALBUTEROL 2.5MG INH SOL UD 3ML (DUONEB) NEB SCH (05:34)
[2024-07-12 05:49] LABS: ABG BASE EXCESS 0.1 (-2.0-2.0); ABG HCO3 30.8 MMOL/L (22.0-26.0); ABG PARTIAL PRESSURE O2 77.1 mmHg (75.0-100.0); ABG STANDARD HCO3 24.5 MMOL/L. (22.0-26.0); ABG TOTAL CO2 33.6 MMOL/L (23.0-31.0)
[2024-07-12 05:50] LABS: ABG PARTIAL PRESSURE CO2 91.8 mmHg (35.0-45.0); ABG pH (ARTERIAL) 7.144 UNITS (7.350-7.450)
[2024-07-12] MEDS: NS 1,000 ML IV SCH (06:00)
[2024-07-12 07:24] LABS: HEMATOCRIT 35.4 % (42.0-52.0); HEMOGLOBIN 9.7 g/dl (13.5-17.5); MEAN CORPUSCULAR HEMOGLOBIN 27.6 pg (27.0-33.0); MEAN CORPUSCULAR HGB CONC 27.4 g/dl (32.0-36.5); MEAN CORPUSCULAR VOLUME 100.6 fl (80.0-96.0); PLATELET COUNT, AUTOMATED 258 10^3/uL (150-450); RED BLOOD COUNT 3.52 10^6/uL (4.30-6.10); WHITE BLOOD COUNT 14.1 10^3/uL (4.0-10.0)
[2024-07-12 07:50] LABS: ALBUMIN 2.6 G/DL (3.2-5.2); BILIRUBIN,TOTAL 0.5 MG/DL (0.3-1.2); CALCIUM LEVEL 8.4 MG/DL (8.3-10.6); CREATININE FOR GFR 3.41 MG/DL (0.70-1.30); GLOMERULAR FILTRATION RATE 18.9 (>42); POTASSIUM SERUM 4.2 MMOL/L (3.5-5.1); TOTAL PROTEIN 6.4 G/DL (5.7-8.2)
[2024-07-12 07:56] LABS: PROCALCITONIN 0.52 ng/ml
[2024-07-12 10:30] LABS: VENOUS BASE EXCESS -4.1 (-2.0-2.0); VENOUS HCO3 23.4 MMOL/L (23.0-27.0); VENOUS O2 SATURATION 99.7 % (60.0-80.0); VENOUS PARTIAL PRESSURE CO2 53.9 mmHg (38.0-50.0); VENOUS PH 7.256 UNITS (7.330-7.430); VENOUS STANDARD HCO3 21.1 MMOL/L; VENOUS TOTAL CO2 25.1 MMOL/L (24.0-28.0)
[2024-07-12] MEDS: NOREPINEPHRINE 4MG IN D5 250ML 4 MG in IV 1 EA IV SCH (11:13)
[2024-07-12] MEDS: PANTOPRAZOLE 40MG VIAL IV SCH (11:15)
[2024-07-12] MEDS: PIPERACILLIN/TAZOBACTAM SOD 4.5 GM in D5W MINI-BAG PLUS 50 ML IV SCH (11:15)
[2024-07-12] MEDS: AZITHROMYCIN INJ 500 MG, VIAL MATE ADAPTER 1 EACH in NS 250 ML IV SCH (12:56)
[2024-07-12 17:11] LABS: VENOUS BASE EXCESS -5.4 (-2.0-2.0); VENOUS HCO3 21.5 MMOL/L (23.0-27.0); VENOUS O2 SATURATION 99.2 % (60.0-80.0); VENOUS PARTIAL PRESSURE O2 230.8 mmHg (30.0-50.0); VENOUS PH 7.269 UNITS (7.330-7.430)
[2024-07-12] MEDS: APIXABAN 5 MG TAB (ELIQUIS) PO SCH (20:28)
[2024-07-13] VITALS (29 sets, daily range): BP systolic 92–143; BP diastolic 49–66; TEMP 97.3–98.1; O2SAT 88–96
[2024-07-13] MEDS: NS 1,000 ML IV SCH (04:50)
[2024-07-13] MEDS: LEVOTHYROXINE 75MCG TABLET (0.075MG) PO SCH (05:02)
[2024-07-13] MEDS: LEVOTHYROXINE 100MCG TABLET (0.1MG) PO SCH (05:02)
[2024-07-13 05:21] LABS: BASO % 0.1 % (0.0-1.0); HEMATOCRIT 31.4 % (42.0-52.0); HEMOGLOBIN 9.1 g/dl (13.5-17.5); LYMPH # 0.5 10^3/uL (1.5-5.0); LYMPH % 6.2 % (24.0-44.0); MEAN CORPUSCULAR HEMOGLOBIN 28.4 pg (27.0-33.0); MEAN CORPUSCULAR VOLUME 98.1 fl (80.0-96.0); MONO # 0.1 10^3/uL (0.0-0.8); MONO % 1.2 % (2.0-8.0); NEUTROPHILS # 7.5 10^3/uL (1.5-8.5); PLATELET COUNT, AUTOMATED 227 10^3/uL (150-450); WHITE BLOOD COUNT 8.2 10^3/uL (4.0-10.0)
[2024-07-13 06:07] LABS: ALBUMIN 2.3 G/DL (3.2-5.2); BILIRUBIN,TOTAL 0.4 MG/DL (0.3-1.2); CALCIUM LEVEL 7.8 MG/DL (8.3-10.6); CREATININE FOR GFR 3.42 MG/DL (0.70-1.30); GLOMERULAR FILTRATION RATE 18.9 (>42); PHOSPHORUS LEVEL 6.6 MG/DL (2.4-5.1); POTASSIUM SERUM 5.1 MMOL/L (3.5-5.1); TOTAL PROTEIN 5.9 G/DL (5.7-8.2)
[2024-07-13] MEDS: FERROUS SULFATE 325MG TAB PO SCH (08:09)
[2024-07-13] MEDS: FEBUXOSTAT 40 MG TABLET (ULORIC) PO SCH (08:09)
[2024-07-13] MEDS: FUROSEMIDE 100MG/10ML VIAL IV ONE (10:28)
[2024-07-13] MEDS ORDERED: METOPROLOL 5 MG/5 ML VIAL As Ordered ONE (12:02)
[2024-07-13] MEDS: METOPROLOL 5 MG/5 ML VIAL IV STA ×2 (12:03→19:31)
[2024-07-13] MEDS: AZITHROMYCIN 250MG TABLET PO SCH (12:07)
[2024-07-13 12:28] LABS: VENOUS BASE EXCESS -5.9 (-2.0-2.0); VENOUS HCO3 21.8 MMOL/L (23.0-27.0); VENOUS O2 SATURATION 97.7 % (60.0-80.0); VENOUS PARTIAL PRESSURE CO2 53.8 mmHg (38.0-50.0); VENOUS PARTIAL PRESSURE O2 118.6 mmHg (30.0-50.0); VENOUS PH 7.225 UNITS (7.330-7.430); VENOUS STANDARD HCO3 19.6 MMOL/L; VENOUS TOTAL CO2 23.4 MMOL/L (24.0-28.0)
[2024-07-13] MEDS ORDERED: dexmedeTOMidine 200 MCG in IV 1 EA IV SCH (14:00)
[2024-07-13] MEDS: METOPROLOL TART 25 MG TABLET PO ONE (14:54)
[2024-07-13] MEDS: MAG SULF 1GM/100ML (MAG RUN) 1 GM in IV 1 EA IV ONE (14:54)
[2024-07-13] MEDS ORDERED: AMIODARONE HCL 360 MG in IV 1 EA IV SCH (18:55)
[2024-07-13] MEDS ORDERED: AMIODARONE HCL 150 MG in IV 1 EA IV ONE (18:55)
[2024-07-13] MEDS: METOPROLOL TART 25 MG TABLET PO SCH (20:12)
[2024-07-14] VITALS (22 sets, daily range): BP systolic 84–131; BP diastolic 51–70; TEMP 97–98.3; O2SAT 90–98
[2024-07-14 07:45] LABS: BASO % 0.1 % (0.0-1.0); HEMATOCRIT 32.1 % (42.0-52.0); HEMOGLOBIN 9.3 g/dl (13.5-17.5); LYMPH # 0.7 10^3/uL (1.5-5.0); LYMPH % 8.1 % (24.0-44.0); MEAN CORPUSCULAR HEMOGLOBIN 28.4 pg (27.0-33.0); MEAN CORPUSCULAR VOLUME 98.2 fl (80.0-96.0); MONO # 0.5 10^3/uL (0.0-0.8); MONO % 6.1 % (2.0-8.0); NEUTROPHILS # 6.8 10^3/uL (1.5-8.5); PLATELET COUNT, AUTOMATED 240 10^3/uL (150-450); RED BLOOD COUNT 3.27 10^6/uL (4.30-6.10)
[2024-07-14] MEDS: predniSONE 20 MG TAB PO SCH (08:13)
[2024-07-14 08:18] LABS: ALBUMIN 2.5 G/DL (3.2-5.2); BILIRUBIN,TOTAL 0.3 MG/DL (0.3-1.2); CALCIUM LEVEL 8.1 MG/DL (8.3-10.6); CREATININE FOR GFR 3.03 MG/DL (0.70-1.30); GLOMERULAR FILTRATION RATE 21.7 (>42); MAGNESIUM LEVEL 2.3 MG/DL (1.8-2.4); PHOSPHORUS LEVEL 4.9 MG/DL (2.4-5.1); POTASSIUM SERUM 4.1 MMOL/L (3.5-5.1); TOTAL PROTEIN 6.2 G/DL (5.7-8.2)
[2024-07-14] MEDS ORDERED: IPRATROPIUM 0.5MG/ALBUTEROL 2.5MG INH SOL UD 3ML (DUONEB) NEB PRN ×2 (10:00)
[2024-07-14] MEDS: GLYCOPYRROLATE INJ 0.2 MG/ML 2 ML VIAL NEB SCH (10:51)
[2024-07-14] MEDS: FORMOTEROL FUMARATE 20 MCG/2 ML INHALATION SOLUTION (PERFOROMIST) INH SCH (10:51)
[2024-07-14] MEDS: METOPROLOL TART 25 MG TABLET PO SCH (12:20)
[2024-07-14] MEDS: FUROSEMIDE injection 250 MG in D5W 225 ML IV SCH (16:50)
[2024-07-14] MEDS: DIGOXIN INJ 0.5 MG/2 ML AMP IV ONE (17:19)
[2024-07-14 17:39] LABS: APPEARANCE, URINE HAZY (CLEAR); BACTERIA, URINE AUTO NEGATIVE (NEGATIVE); BILIRUBIN, URINE AUTO NEGATIVE (NEGATIVE); BLOOD, URINE BLOOD NEGATIVE (NEGATIVE); COLOR, URINE YELLOW (YELLOW); GLUCOSE, URINE (UA) AUTO NEGATIVE (NEGATIVE); KETONE, URINE AUTO NEGATIVE (NEGATIVE); LEUKOCYTE ESTERASE, URINE AUTO TRACE (NEGATIVE); MUCUS, URINE SMALL (NEGATIVE); NITRITE, URINE AUTO NEGATIVE (NEGATIVE); PROTEIN, URINE AUTO 1+ mg/dL (NEGATIVE); RBC, URINE AUTO 3 /HPF (0-3); SPECIFIC GRAVITY URINE AUTO 1.012 (1.002-1.035); SQUAMOUS EPITHELIAL CELL UR AU 1 /HPF (0-6); UROBILINOGEN, URINE AUTO 0.2 mg/dL (0.0-2.0); WBC, URINE AUTO 6 /HPF (0-3)
[2024-07-15] VITALS (10 sets, daily range): BP systolic 97–132; BP diastolic 52–60; TEMP 97.3–98.1; O2SAT 92–97
[2024-07-15 05:05] LABS: HEMATOCRIT 32.7 % (42.0-52.0); HEMOGLOBIN 9.4 g/dl (13.5-17.5); LYMPH # 0.6 10^3/uL (1.5-5.0); LYMPH % 7.5 % (24.0-44.0); MEAN CORPUSCULAR HEMOGLOBIN 28.5 pg (27.0-33.0); MEAN CORPUSCULAR HGB CONC 28.7 g/dl (32.0-36.5); MEAN CORPUSCULAR VOLUME 99.1 fl (80.0-96.0); MONO # 0.4 10^3/uL (0.0-0.8); MONO % 5.4 % (2.0-8.0); NEUTROPHILS # 6.7 10^3/uL (1.5-8.5); NEUTROPHILS % 86.5 % (36.0-66.0); PLATELET COUNT, AUTOMATED 214 10^3/uL (150-450); WHITE BLOOD COUNT 7.7 10^3/uL (4.0-10.0)
[2024-07-15 05:27] LABS: DIGOXIN LEVEL < 0.1 NG/ML (0.8-2.0)
[2024-07-15 05:28] LABS: ALBUMIN 2.6 G/DL (3.2-5.2); ALKALINE PHOSPHATASE 103 U/L (46-116); ALT/SGPT 35 U/L (7.0-40); AST/SGOT 19 U/L (<34); BILIRUBIN,TOTAL 0.2 MG/DL (0.3-1.2); BLOOD UREA NITROGEN 72 MG/DL (9-23); CALCIUM LEVEL 7.9 MG/DL (8.3-10.6); CARBON DIOXIDE LEVEL 29 MMOL/L (20-31); CHLORIDE LEVEL 106 MMOL/L (98-107); CREATININE FOR GFR 2.79 MG/DL (0.70-1.30); GLOMERULAR FILTRATION RATE 23.9 (>42); GLUCOSE, FASTING 158 MG/DL (74-106); POTASSIUM SERUM 4.4 MMOL/L (3.5-5.1); SODIUM LEVEL 139 MMOL/L (136-145)
[2024-07-15 12:27] LABS: ABG HCO3 26.7 MMOL/L (22.0-26.0); ABG O2 SATURATION 96.7 % (95.0-99.0); ABG PARTIAL PRESSURE O2 86.2 mmHg (75.0-100.0); ABG STANDARD HCO3 23.6 MMOL/L. (22.0-26.0); ABG TOTAL CO2 28.5 MMOL/L (23.0-31.0); ABG pH (ARTERIAL) 7.264 UNITS (7.350-7.450)
[2024-07-15 12:29] LABS: ABG PARTIAL PRESSURE CO2 60.2 mmHg (35.0-45.0)
[2024-07-16] VITALS (11 sets, daily range): BP systolic 104–118; BP diastolic 52–80; TEMP 97–98; O2SAT 94–97
[2024-07-16 06:29] LABS: ALBUMIN 2.6 G/DL (3.2-5.2); BILIRUBIN,TOTAL 0.3 MG/DL (0.3-1.2); CREATININE FOR GFR 2.24 MG/DL (0.70-1.30); GLOMERULAR FILTRATION RATE 30.7 (>42); MAGNESIUM LEVEL 1.8 MG/DL (1.8-2.4); PHOSPHORUS LEVEL 3.6 MG/DL (2.4-5.1); POTASSIUM SERUM 3.9 MMOL/L (3.5-5.1); TOTAL PROTEIN 6.1 G/DL (5.7-8.2)
[2024-07-16 10:47] LABS: VENOUS BASE EXCESS 2.6 (-2.0-2.0); VENOUS O2 SATURATION 98.5 % (60.0-80.0); VENOUS PARTIAL PRESSURE CO2 70.1 mmHg (38.0-50.0); VENOUS PARTIAL PRESSURE O2 116.3 mmHg (30.0-50.0); VENOUS PH 7.264 UNITS (7.330-7.430); VENOUS STANDARD HCO3 26.8 MMOL/L; VENOUS TOTAL CO2 33.2 MMOL/L (24.0-28.0)
[2024-07-16] MEDS: MAG SULF 1GM/100ML (MAG RUN) 1 GM in IV 1 EA IV ONE (11:51)
[2024-07-17] VITALS (7 sets, daily range): BP systolic 108–134; BP diastolic 50–72; TEMP 97.1–98.4; O2SAT 92–97
[2024-07-17 06:22] LABS: ALBUMIN 2.9 G/DL (3.2-5.2); BILIRUBIN,TOTAL 0.4 MG/DL (0.3-1.2); CALCIUM LEVEL 8.3 MG/DL (8.3-10.6); CREATININE FOR GFR 1.72 MG/DL (0.70-1.30); GLOMERULAR FILTRATION RATE 41.7 (>42); MAGNESIUM LEVEL 1.7 MG/DL (1.8-2.4); PHOSPHORUS LEVEL 2.4 MG/DL (2.4-5.1); POTASSIUM SERUM 3.5 MMOL/L (3.5-5.1); TOTAL PROTEIN 6.3 G/DL (5.7-8.2)
[2024-07-17] MEDS: POTASSIUM CHLORIDE 10MEQ SR TABLET PO ONE (08:26)
[2024-07-17] MEDS: TORSEMIDE 100 MG TAB PO SCH (16:59)
[2024-07-18] VITALS: BP 131/75; TEMP 97.5; O2SAT 96
[2024-07-18 04:00] VITALS: BP 131/98; TEMP 97.7; O2SAT 95
[2024-07-18 06:31] LABS: ALBUMIN 2.9 G/DL (3.2-5.2); BILIRUBIN,TOTAL 0.4 MG/DL (0.3-1.2); CALCIUM LEVEL 8.7 MG/DL (8.3-10.6); CREATININE FOR GFR 1.57 MG/DL (0.70-1.30); GLOMERULAR FILTRATION RATE 46.3 (>42); MAGNESIUM LEVEL 1.5 MG/DL (1.8-2.4); PHOSPHORUS LEVEL 2.3 MG/DL (2.4-5.1); POTASSIUM SERUM 3.5 MMOL/L (3.5-5.1); TOTAL PROTEIN 6.3 G/DL (5.7-8.2)
[2024-07-18] MEDS: MAG SULF 1GM/100ML (MAG RUN) 1 GM in IV 1 EA IV SCH (07:19)
[2024-07-18 07:21] VITALS: BP 99/51; TEMP 99; O2SAT 98
[2024-07-18 10:26] VITALS: BP 116/58; O2SAT 95
[2024-07-18] MEDS: POTASSIUM CHLORIDE 10MEQ SR TABLET PO SCH (10:26)
[2024-07-18 11:55] VITALS: BP 121/89; TEMP 99.5; O2SAT 95
[2024-07-18 20:00] VITALS: BP 104/55; TEMP 98.2; O2SAT 97
[2024-07-18 21:23] LABS: BASO % 0.2 % (0.0-1.0); EOS # 0.3 10^3/uL (0.0-0.5); EOS % 3.6 % (0.0-3.0); HEMATOCRIT 36.6 % (42.0-52.0); HEMOGLOBIN 10.9 g/dl (13.5-17.5); LYMPH # 1.5 10^3/uL (1.5-5.0); MEAN CORPUSCULAR HEMOGLOBIN 28.2 pg (27.0-33.0); MEAN CORPUSCULAR HGB CONC 29.8 g/dl (32.0-36.5); MEAN CORPUSCULAR VOLUME 94.8 fl (80.0-96.0); MONO # 0.6 10^3/uL (0.0-0.8); MONO % 6.2 % (2.0-8.0); NEUTROPHILS # 6.8 10^3/uL (1.5-8.5); NEUTROPHILS % 73.4 % (36.0-66.0); PLATELET COUNT, AUTOMATED 240 10^3/uL (150-450); RED BLOOD COUNT 3.86 10^6/uL (4.30-6.10); WHITE BLOOD COUNT 9.3 10^3/uL (4.0-10.0)
[2024-07-18] MEDS: RAMELTEON 8 MG TAB (ROZEREM) PO ONE (22:12)
[2024-07-18] MEDS: ACETAMINOPHEN *IV* 500 MG in IV 1 EA IV ONE (23:56)
[2024-07-19] VITALS: BP 100/52; TEMP 98.8; O2SAT 96
[2024-07-19 04:00] VITALS: BP 97/55; TEMP 98; O2SAT 97
[2024-07-19 05:08] LABS: HEMATOCRIT 34.8 % (42.0-52.0); HEMOGLOBIN 10.3 g/dl (13.5-17.5); MEAN CORPUSCULAR HEMOGLOBIN 28.1 pg (27.0-33.0); MEAN CORPUSCULAR HGB CONC 29.6 g/dl (32.0-36.5); MEAN CORPUSCULAR VOLUME 95.1 fl (80.0-96.0); PLATELET COUNT, AUTOMATED 223 10^3/uL (150-450); RED BLOOD COUNT 3.66 10^6/uL (4.30-6.10); WHITE BLOOD COUNT 9.5 10^3/uL (4.0-10.0)
[2024-07-19 05:32] LABS: CALCIUM LEVEL 8.7 MG/DL (8.3-10.6); CREATININE FOR GFR 1.69 MG/DL (0.70-1.30); GLOMERULAR FILTRATION RATE 42.6 (>42); MAGNESIUM LEVEL 1.8 MG/DL (1.8-2.4)
[2024-07-19 08:00] VITALS: BP 99/54; TEMP 98.2; O2SAT 98
[2024-07-19 16:00] VITALS: BP 97/50; TEMP 97.8; O2SAT 100
[2024-07-19] MEDS: TORSEMIDE 20 MG TAB PO SCH (16:34)
[2024-07-19 18:00] VITALS: BP 94/53; O2SAT 100
[2024-07-19 20:00] VITALS: BP 92/58; TEMP 97.7; O2SAT 96
[2024-07-19] MEDS: MAGNESIUM OXIDE 400MG TAB (MAG-OX) PO ONE (20:59)
[2024-07-19] MEDS: ACETAMINOPHEN TAB 650MG DOSE (2X325MG) PO ONE (20:59)
[2024-07-19] MEDS: RAMELTEON 8 MG TAB (ROZEREM) PO SCH (20:59)
[2024-07-20 04:00] VITALS: BP 98/55; TEMP 98; O2SAT 96
[2024-07-20 05:00] LABS: HEMATOCRIT 31.8 % (42.0-52.0); HEMOGLOBIN 9.3 g/dl (13.5-17.5); MEAN CORPUSCULAR HEMOGLOBIN 27.3 pg (27.0-33.0); MEAN CORPUSCULAR HGB CONC 29.2 g/dl (32.0-36.5); MEAN CORPUSCULAR VOLUME 93.3 fl (80.0-96.0); PLATELET COUNT, AUTOMATED 183 10^3/uL (150-450); RED BLOOD COUNT 3.41 10^6/uL (4.30-6.10); WHITE BLOOD COUNT 6.8 10^3/uL (4.0-10.0)
[2024-07-20 05:27] LABS: CALCIUM LEVEL 8.4 MG/DL (8.3-10.6); CREATININE FOR GFR 1.61 MG/DL (0.70-1.30); MAGNESIUM LEVEL 1.9 MG/DL (1.8-2.4); POTASSIUM SERUM 4.3 MMOL/L (3.5-5.1)
[2024-07-20] MEDS ORDERED: TORS20TA2 PO (07:47)
[2024-07-20] MEDS ORDERED: METO1TAB87 PO (07:47)
[2024-07-20 09:00] VITALS: BP 107/46; TEMP 97.9; O2SAT 98
[2024-07-20 11:13] VITALS: BP 143/78; O2SAT 98
[2024-07-20 11:15] VITALS: BP 143/78
== END 2024-07-20 12:18 | disposition home health service (06) | DRG 871 ==
LOC: M ED 01:43 → M ED INP 04:18 → M ICU 10:00
PROVIDERS: ADMIT Preventive Medicine Undersea and Hyperbaric Medicine; ATTEND General Practice
DX: A41.9 Sepsis, unspecified organism (principal); R57.1 Hypovolemic shock; J96.22 Acute and chronic respiratory failure with hypercapnia; J96.21 Acute and chronic respiratory failure with hypoxia; G93.41 Metabolic encephalopathy; I48.20 Chronic atrial fibrillation, unspecified; J44.1 Chronic obstructive pulmonary disease with (acute) exacerbation; N17.9 Acute kidney failure, unspecified; I48.92 Unspecified atrial flutter; Q24.0 Dextrocardia; D68.32 Hemorrhagic disorder due to extrinsic circulating anticoagulants; L03.115 Cellulitis of right lower limb; L03.116 Cellulitis of left lower limb; I50.30 Unspecified diastolic (congestive) heart failure; N40.0 Benign prostatic hyperplasia without lower urinary tract symptoms; N18.32 Chronic kidney disease, stage 3b; E03.9 Hypothyroidism, unspecified; I27.20 Pulmonary hypertension, unspecified; R31.0 Gross hematuria; I25.2 Old myocardial infarction; I73.9 Peripheral vascular disease, unspecified; G62.0 Drug-induced polyneuropathy; I25.10 Atherosclerotic heart disease of native coronary artery without angina pectoris; I89.0 Lymphedema, not elsewhere classified; R19.7 Diarrhea, unspecified; E88.810 Metabolic syndrome; E86.0 Dehydration; E83.42 Hypomagnesemia; G47.33 Obstructive sleep apnea (adult) (pediatric); K57.30 Diverticulosis of large intestine without perforation or abscess without bleeding; K43.9 Ventral hernia without obstruction or gangrene; E87.70 Fluid overload, unspecified; I87.2 Venous insufficiency (chronic) (peripheral); Z85.3 Personal history of malignant neoplasm of breast; Z92.21 Personal history of antineoplastic chemotherapy; Z92.3 Personal history of irradiation; Z79.01 Long term (current) use of anticoagulants; Z79.899 Other long term (current) drug therapy; Z88.8 Allergy status to other drugs, medicaments and biological substances; Z85.46 Personal history of malignant neoplasm of prostate; K76.0 Fatty (change of) liver, not elsewhere classified; Z86.16 Personal history of COVID-19

== ENCOUNTER → 2024-08-15 | Outpatient (CLI) | payer MEDICARE, OTHER ==
[~2024-08-15] VITALS: Ht 172.7 cm; Wt 129.5 kg
[~2024-08-15] MED LIST changes: +ALBUTEROL SULFATE 2.5MG/0.5ML INH NEB SOLN INH PRN; +EPINEPHrine INJ 1 MG/ML 1ML AMP IM PRN; +GABA-1172 PO; -GABA-282 PO; +NS 1,000 ML IV SCH; +diphenhydrAMINE 50MG/ML VIAL IV PRN; +methylPREDNISolone 125MG 2ML VIAL IV PRN
[2024-08-15 10:45] VITALS: BP 101/60; O2SAT 97
[2024-08-15] MEDS: IRON SUCROSE 25 MG in NS 23.75 ML IV ONE (11:38)
[2024-08-15 12:20] VITALS: BP 111/63; O2SAT 96
[2024-08-15] MEDS: IRON SUCROSE 175 MG in NS 100 ML IV ONE (12:24)
[2024-08-15 13:50] VITALS: BP 98/57; O2SAT 96
== END ==
LOC: M INFU 10:21
PROVIDERS: ATTEND Physician Assistant
DX: D50.9 Iron deficiency anemia, unspecified (principal); Z88.1 Allergy status to other antibiotic agents; Z88.8 Allergy status to other drugs, medicaments and biological substances
CPT/HCPCS: 96365; J1756

== ENCOUNTER → 2024-09-25 | Outpatient (REF) | payer MEDICARE, OTHER ==
[~2024-09-25] MED LIST changes: -ALBUTEROL SULFATE 2.5MG/0.5ML INH NEB SOLN INH PRN; -EPINEPHrine INJ 1 MG/ML 1ML AMP IM PRN; +META-10 PO; -META1TAB22 PO; -NS 1,000 ML IV SCH; -diphenhydrAMINE 50MG/ML VIAL IV PRN; -methylPREDNISolone 125MG 2ML VIAL IV PRN
[2024-09-25 14:04] LABS: HEMATOCRIT 40.1 % (42.0-52.0); HEMOGLOBIN 11.3 g/dl (13.5-17.5); MEAN CORPUSCULAR HEMOGLOBIN 27.6 pg (27.0-33.0); MEAN CORPUSCULAR HGB CONC 28.2 g/dl (32.0-36.5); PLATELET COUNT, AUTOMATED 252 10^3/uL (150-450); RED BLOOD COUNT 4.09 10^6/uL (4.30-6.10); WHITE BLOOD COUNT 7.9 10^3/uL (4.0-10.0)
[2024-09-25 14:43] LABS: FERRITIN 30.4 NG/ML (10.5-307.3)
[2024-09-25 14:45] LABS: CALCIUM LEVEL 9.4 MG/DL (8.3-10.6); CREATININE FOR GFR 1.37 MG/DL (0.70-1.30); GLOMERULAR FILTRATION RATE 54.1 (>42); PERCENT SATURATION 10.9 % (19.7-50.0); POTASSIUM SERUM 4.5 MMOL/L (3.5-5.1)
== END ==
LOC: M SFHCADAM 10:22
PROVIDERS: ATTEND Family Medicine
DX: N18.32 Chronic kidney disease, stage 3b (principal); D63.8 Anemia in other chronic diseases classified elsewhere; I50.9 Heart failure, unspecified

== ENCOUNTER → 2024-11-07 | Outpatient (REF) | payer MEDICARE, OTHER ==
[2024-11-07 18:05] LABS: HEMOGLOBIN 11.7 g/dl (13.5-17.5); MEAN CORPUSCULAR HGB CONC 28.5 g/dl (32.0-36.5); MEAN CORPUSCULAR VOLUME 98.1 fl (80.0-96.0); PLATELET COUNT, AUTOMATED 290 10^3/uL (150-450); RED BLOOD COUNT 4.18 10^6/uL (4.30-6.10); WHITE BLOOD COUNT 7.1 10^3/uL (4.0-10.0)
[2024-11-07 18:35] LABS: CALCIUM LEVEL 9.2 MG/DL (8.3-10.6); CREATININE FOR GFR 1.38 MG/DL (0.70-1.30); GLOMERULAR FILTRATION RATE 53.6 (>42); POTASSIUM SERUM 4.5 MMOL/L (3.5-5.1)
== END ==
LOC: M SFHCADAM 12:05
PROVIDERS: ATTEND Family Medicine
DX: N18.32 Chronic kidney disease, stage 3b (principal); I50.9 Heart failure, unspecified; D63.8 Anemia in other chronic diseases classified elsewhere

== ENCOUNTER → 2024-12-18 | Outpatient (REF) | payer MEDICARE, OTHER ==
[2024-12-18 18:30] LABS: ALBUMIN 3.1 G/DL (3.2-5.2); ALKALINE PHOSPHATASE 88 U/L (40-129); ALT/SGPT < 9 U/L (7.0-40); AST/SGOT 12 U/L (<34); BILIRUBIN,TOTAL 0.4 MG/DL (0.3-1.2); BLOOD UREA NITROGEN 24 MG/DL (9-23); CALCIUM LEVEL 8.8 MG/DL (8.3-10.6); CARBON DIOXIDE LEVEL 34 MMOL/L (20-31); CHLORIDE LEVEL 100 MMOL/L (98-107); CREATININE FOR GFR 1.41 MG/DL (0.70-1.30); DIGOXIN LEVEL 0.3 NG/ML (0.8-2.0); GLOMERULAR FILTRATION RATE 52.3 (>42); GLUCOSE, FASTING 109 MG/DL (74-106); SODIUM LEVEL 142 MMOL/L (136-145)
== END ==
LOC: M LABDRWAD 17:54
PROVIDERS: ATTEND Internal Medicine Cardiovascular Disease
DX: I50.32 Chronic diastolic (congestive) heart failure (principal); I48.0 Paroxysmal atrial fibrillation

== ENCOUNTER 2024-12-25 13:08 | Inpatient (IN) | payer MEDICARE, OTHER ==
[~2024-12-25] VITALS: Ht 172.7 cm; Wt 123.3 kg
[2024-12-25] MEDS: ACETAMINOPHEN 325 MG TAB PO ONE (14:02)
[2024-12-25 14:08] LABS: AMORPHOUS SEDIMENT SMALL (NEGATIVE); APPEARANCE, URINE CLOUDY (CLEAR); BACTERIA, URINE AUTO 3+ (NEGATIVE); BASO # 0.1 10^3/uL (0.0-0.2); BASO % 0.4 % (0.0-1.0); BILIRUBIN, URINE AUTO NEGATIVE (NEGATIVE); BLOOD, URINE BLOOD 1+ (NEGATIVE); COLOR, URINE YELLOW (YELLOW); EOS % 0.1 % (0.0-3.0); GLUCOSE, URINE (UA) AUTO NEGATIVE (NEGATIVE); HEMATOCRIT 37.6 % (42.0-52.0); HEMOGLOBIN 11.4 g/dl (13.5-17.5); KETONE, URINE AUTO NEGATIVE (NEGATIVE); LEUKOCYTE ESTERASE, URINE AUTO 2+ (NEGATIVE); LYMPH # 1.6 10^3/uL (1.5-5.0); LYMPH % 9.2 % (24.0-44.0); MEAN CORPUSCULAR HEMOGLOBIN 29.6 pg (27.0-33.0); MEAN CORPUSCULAR HGB CONC 30.3 g/dl (32.0-36.5); MEAN CORPUSCULAR VOLUME 97.7 fl (80.0-96.0); MONO # 1.6 10^3/uL (0.0-0.8); MONO % 9.2 % (2.0-8.0); MUCUS, URINE SMALL (NEGATIVE); NEUTROPHILS # 14.4 10^3/uL (1.5-8.5); NEUTROPHILS % 80.5 % (36.0-66.0); NITRITE, URINE AUTO NEGATIVE (NEGATIVE); PLATELET COUNT, AUTOMATED 256 10^3/uL (150-450); PROTEIN, URINE AUTO 1+ mg/dL (NEGATIVE); RBC, URINE AUTO 20 /HPF (0-3); RED BLOOD COUNT 3.85 10^6/uL (4.30-6.10); SPECIFIC GRAVITY URINE AUTO 1.012 (1.002-1.035); SQUAMOUS EPITHELIAL CELL UR AU 0 /HPF (0-6); UROBILINOGEN, URINE AUTO 0.2 mg/dL (0.0-2.0); WBC, URINE AUTO TNTC /HPF (0-3); WHITE BLOOD COUNT 17.9 10^3/uL (4.0-10.0)
[2024-12-25 14:19] LABS: INR 1.63; PARTIAL THROMBOPLASTIN TIME 35.8 SECONDS (24.8-34.2); PROTHROMBIN TIME 19.5 SECONDS (12.5-14.5)
[2024-12-25] MEDS ORDERED: NS (Normal Saline) 0.9% 1,000 ML IV SCH (14:25)
[2024-12-25 14:32] LABS: ALBUMIN 3.2 G/DL (3.2-5.2); ALKALINE PHOSPHATASE 87 U/L (40-129); ALT/SGPT < 9 U/L (7.0-40); AST/SGOT 29 U/L (<34); BILIRUBIN,DIRECT 0.3 MG/DL (<0.4); BLOOD UREA NITROGEN 30 MG/DL (9-23); CALCIUM LEVEL 8.7 MG/DL (8.3-10.6); CARBON DIOXIDE LEVEL 32 MMOL/L (20-31); CHLORIDE LEVEL 97 MMOL/L (98-107); CREATININE FOR GFR 1.62 MG/DL (0.70-1.30); GLOMERULAR FILTRATION RATE 44.6 (>42); GLUCOSE, FASTING 120 MG/DL (74-106); POTASSIUM SERUM 4.6 MMOL/L (3.5-5.1); SODIUM LEVEL 137 MMOL/L (136-145); TOTAL PROTEIN 7.5 G/DL (5.7-8.2)
[2024-12-25] MEDS ORDERED: LR 1,000 ML IV ONE (15:05)
[2024-12-25] MEDS ORDERED: METO100T5 PO (15:38)
[2024-12-25] MEDS ORDERED: GABA-1490 PO (15:38)
[2024-12-25] MEDS ORDERED: DIGO0.123 PO (15:38)
[2024-12-25] MEDS ORDERED: PANT20TA6 PO (15:38)
[2024-12-25] MEDS ORDERED: SEMA2.4P INJ (15:38)
[2024-12-25] MEDS ORDERED: CALC1CAP31 PO (15:38)
[2024-12-25] MEDS ORDERED: HOME MED LIST COMPLETE! XX SCH (15:40)
[2024-12-25] MEDS: cefTRIAXone SOD 2 GM in DEXTROSE 5% (D5W) ADV/MINI-BAG 50 ML IV ONE (15:42)
[2024-12-25] MEDS: DOXYCYCLINE HYCLATE 100MG TABLET PO ONE (16:39)
[2024-12-25 16:55] VITALS: BP 99/50; TEMP 98.1; O2SAT 97
[2024-12-25] MEDS: metOLazone 2.5 MG TAB PO ONE (17:48)
[2024-12-25] MEDS: TORSEMIDE 20 MG TAB PO ONE (17:53)
[2024-12-25 18:11] LABS: THYROXINE (T4) 11.1 UG/DL (4.5-10.9)
[2024-12-25 18:12] LABS: THYROID STIMULATING HORMONE 3.005 uIU/ML (0.55-4.78)
[2024-12-25 18:13] LABS: FREE THYROXINE INDEX 4.8 % (1.4-3.8); T UPTAKE 43.1 % (22.5-37.0)
[2024-12-25 19:35] LABS: CK-MB VALUE MASS 1.5 NG/ML (<3.6)
[2024-12-25 19:37] LABS: MB/CK RELATIVE INDEX 0.56 (< OR =4)
[2024-12-25] MEDS: MIDODRINE 5 MG TAB PO ONE (20:00)
[2024-12-25] MEDS: NS 500 ML IV ONE (20:01)
[2024-12-25 20:13] VITALS: BP 111/58; TEMP 98; O2SAT 96
[2024-12-25] MEDS: APIXABAN 5 MG TAB (ELIQUIS) PO SCH (20:50)
[2024-12-25] MEDS ORDERED: HEPARIN SOD (PORCINE) 5000UNITS/ML 1ML VIAL/SYRINGE SQ SCH (21:00)
[2024-12-25] MEDS: GABAPENTIN 300 MG CAP PO SCH (22:10)
[2024-12-26 00:42] LABS: CK-MB VALUE MASS 1.4 NG/ML (<3.6)
[2024-12-26 00:44] LABS: MB/CK RELATIVE INDEX 0.55 (< OR =4)
[2024-12-26 04:49] VITALS: BP 149/65; TEMP 98.3; O2SAT 97
[2024-12-26] MEDS: LEVOTHYROXINE 75MCG TABLET (0.075MG) PO SCH (05:34)
[2024-12-26] MEDS: LEVOTHYROXINE 100MCG TABLET (0.1MG) PO SCH (05:35)
[2024-12-26 06:37] LABS: BASO % 0.3 % (0.0-1.0); EOS % 0.1 % (0.0-3.0); HEMATOCRIT 32.6 % (42.0-52.0); HEMOGLOBIN 10.1 g/dl (13.5-17.5); LYMPH # 0.7 10^3/uL (1.5-5.0); LYMPH % 5.2 % (24.0-44.0); MEAN CORPUSCULAR HEMOGLOBIN 29.9 pg (27.0-33.0); MEAN CORPUSCULAR VOLUME 96.4 fl (80.0-96.0); MONO # 0.9 10^3/uL (0.0-0.8); MONO % 6.3 % (2.0-8.0); NEUTROPHILS # 12.2 10^3/uL (1.5-8.5); NEUTROPHILS % 87.5 % (36.0-66.0); PLATELET COUNT, AUTOMATED 240 10^3/uL (150-450); RED BLOOD COUNT 3.38 10^6/uL (4.30-6.10)
[2024-12-26 07:04] LABS: BLOOD UREA NITROGEN 30 MG/DL (9-23); CALCIUM LEVEL 8.4 MG/DL (8.3-10.6); CARBON DIOXIDE LEVEL 31 MMOL/L (20-31); CHLORIDE LEVEL 100 MMOL/L (98-107); CK-MB VALUE MASS < 1.0 NG/ML (<3.6); CPK CREATINE PHOSPHOKINASE 184 U/L (46-171); CREATININE FOR GFR 1.51 MG/DL (0.70-1.30); GLOMERULAR FILTRATION RATE 48.3 (>42); GLUCOSE, FASTING 174 MG/DL (74-106); MB/CK RELATIVE INDEX 0.54 (< OR =4); POTASSIUM SERUM 3.7 MMOL/L (3.5-5.1); SODIUM LEVEL 139 MMOL/L (136-145)
[2024-12-26] MEDS: DOXYCYCLINE HYCLATE 100MG TABLET PO SCH (10:10)
[2024-12-26] MEDS: FERROUS SULFATE 325MG TAB PO SCH (10:10)
[2024-12-26] MEDS: FEBUXOSTAT 40 MG TABLET (ULORIC) PO SCH (10:10)
[2024-12-26] MEDS: MIRALAX *UNIT DOSE* 17GM PACKET PO ONE ×2 (10:35→11:15)
[2024-12-26] MEDS: BISACODYL 10MG SUPP PR ONE (11:16)
[2024-12-26] MEDS: SENOKOT S TAB PO ONE (11:16)
[2024-12-26 12:13] VITALS: BP 103/56; TEMP 99.6; O2SAT 97
[2024-12-26] MEDS: MIDODRINE 5 MG TAB PO ONE (13:58)
[2024-12-26] MEDS: cefTRIAXone SOD 2 GM in DEXTROSE 5% (D5W) ADV/MINI-BAG 50 ML IV SCH (16:26)
[2024-12-26 20:00] VITALS: BP 100/76; TEMP 98.8; O2SAT 97
[2024-12-27 04:00] VITALS: BP 117/66; TEMP 98.3; O2SAT 93
[2024-12-27 06:53] LABS: BASO # 0.1 10^3/uL (0.0-0.2); BASO % 0.5 % (0.0-1.0); EOS # 0.2 10^3/uL (0.0-0.5); EOS % 1.6 % (0.0-3.0); HEMATOCRIT 33.8 % (42.0-52.0); HEMOGLOBIN 10.5 g/dl (13.5-17.5); LYMPH % 10.9 % (24.0-44.0); MEAN CORPUSCULAR HEMOGLOBIN 29.8 pg (27.0-33.0); MEAN CORPUSCULAR HGB CONC 31.1 g/dl (32.0-36.5); MONO # 0.8 10^3/uL (0.0-0.8); MONO % 8.5 % (2.0-8.0); NEUTROPHILS # 7.4 10^3/uL (1.5-8.5); PLATELET COUNT, AUTOMATED 231 10^3/uL (150-450); RED BLOOD COUNT 3.52 10^6/uL (4.30-6.10); WHITE BLOOD COUNT 9.5 10^3/uL (4.0-10.0)
[2024-12-27 07:21] LABS: CALCIUM LEVEL 9.1 MG/DL (8.3-10.6); CREATININE FOR GFR 1.41 MG/DL (0.70-1.30); GLOMERULAR FILTRATION RATE 52.3 (>42); POTASSIUM SERUM 4.2 MMOL/L (3.5-5.1)
[2024-12-27] MEDS ORDERED: TORSEMIDE 20 MG TAB PO ONE (09:00)
[2024-12-27] MEDS: TORSEMIDE 100 MG TAB PO SCH (09:00)
[2024-12-27] MEDS: CEFDINIR 300 MG CAP (OMNICEF) PO SCH (10:41)
[2024-12-27] MEDS: MIDODRINE 5 MG TAB PO ONE (10:42)
[2024-12-27 12:00] VITALS: BP 133/96; TEMP 99; O2SAT 98
[2024-12-27 20:03] VITALS: BP 124/59; TEMP 97.3; O2SAT 97
[2024-12-28 06:00] VITALS: BP 132/60; TEMP 97.6; O2SAT 85
[2024-12-28 06:13] LABS: BASO # 0.1 10^3/uL (0.0-0.2); BASO % 0.7 % (0.0-1.0); EOS # 0.3 10^3/uL (0.0-0.5); EOS % 3.7 % (0.0-3.0); HEMATOCRIT 32.1 % (42.0-52.0); HEMOGLOBIN 9.9 g/dl (13.5-17.5); LYMPH # 1.3 10^3/uL (1.5-5.0); LYMPH % 17.4 % (24.0-44.0); MEAN CORPUSCULAR HEMOGLOBIN 29.6 pg (27.0-33.0); MEAN CORPUSCULAR HGB CONC 30.8 g/dl (32.0-36.5); MEAN CORPUSCULAR VOLUME 96.1 fl (80.0-96.0); MONO # 0.8 10^3/uL (0.0-0.8); MONO % 10.5 % (2.0-8.0); NEUTROPHILS # 4.9 10^3/uL (1.5-8.5); PLATELET COUNT, AUTOMATED 226 10^3/uL (150-450); RED BLOOD COUNT 3.34 10^6/uL (4.30-6.10); WHITE BLOOD COUNT 7.4 10^3/uL (4.0-10.0)
[2024-12-28 06:26] LABS: CALCIUM LEVEL 8.7 MG/DL (8.3-10.6); CREATININE FOR GFR 1.47 MG/DL (0.70-1.30); GLOMERULAR FILTRATION RATE 49.9 (>42); POTASSIUM SERUM 3.7 MMOL/L (3.5-5.1)
[2024-12-28 06:27] LABS: PERCENT SATURATION 13.5 % (19.7-50.0)
[2024-12-28 06:29] LABS: FERRITIN 144.6 NG/ML (10.5-307.3); TOTAL 25(OH) VITAMIN D 54.6 NG/ML (20.0-100.0)
[2024-12-28] MEDS ORDERED: TALK1KIT MC (06:43)
[2024-12-28] MEDS ORDERED: TORS100T PO (06:43)
[2024-12-28] MEDS ORDERED: CEFD300CAP PO (06:43)
[2024-12-28] MEDS ORDERED: DOXY100T PO (06:43)
[2024-12-28 07:52] LABS: C REACTIVE PROTEIN QUANTITATIV 12.97 MG/DL (<1.0)
[2024-12-28 08:04] LABS: PROCALCITONIN 0.53 ng/ml
[2024-12-28] MEDS ORDERED: AMOX875T2 PO (10:54)
[2024-12-28] MEDS ORDERED: BACI1CAP PO (10:54)
[2024-12-28 12:17] VITALS: BP 132/89; TEMP 98.1; O2SAT 93
[2024-12-28] MEDS: POTASSIUM CHLORIDE 10MEQ SR TABLET PO ONE (12:19)
[2024-12-28] MEDS: FERRIC CARBOXYMALTOSE INJ 750 MG, VIAL MATE ADAPTER 1 EACH in NS 100 ML IV ONE (12:20)
[2024-12-28] MEDS: AUGMENTIN 875 MG TAB PO SCH (13:51)
[2024-12-29 19:57] LABS: URINE STREP PNEUMONIAE ANTIGEN DETECTED (NOT DETECT)
[2024-12-30 17:53] LABS: MYCOPLASMA PNEUMONIAE IGG 3.49 (<=0.90)
== END 2024-12-28 16:18 | disposition home or self-care (01) | DRG 871 ==
LOC: M ED 13:08 → EDBD 13:08 → M ED INP 14:42 → M MS4PR 16:50
PROVIDERS: ADMIT General Practice; ATTEND General Practice
DX: A41.9 Sepsis, unspecified organism (principal); J18.9 Pneumonia, unspecified organism; I50.33 Acute on chronic diastolic (congestive) heart failure; N39.0 Urinary tract infection, site not specified; J96.11 Chronic respiratory failure with hypoxia; I48.92 Unspecified atrial flutter; N18.30 Chronic kidney disease, stage 3 unspecified; I89.0 Lymphedema, not elsewhere classified; G47.33 Obstructive sleep apnea (adult) (pediatric); J44.9 Chronic obstructive pulmonary disease, unspecified; Z85.3 Personal history of malignant neoplasm of breast; I48.91 Unspecified atrial fibrillation; I27.20 Pulmonary hypertension, unspecified; Z99.81 Dependence on supplemental oxygen; E03.9 Hypothyroidism, unspecified; Z79.01 Long term (current) use of anticoagulants; I25.2 Old myocardial infarction; Z92.21 Personal history of antineoplastic chemotherapy; G62.9 Polyneuropathy, unspecified; E78.5 Hyperlipidemia, unspecified; M10.9 Gout, unspecified; K21.9 Gastro-esophageal reflux disease without esophagitis; K44.9 Diaphragmatic hernia without obstruction or gangrene; G25.0 Essential tremor; K76.0 Fatty (change of) liver, not elsewhere classified; Z95.2 Presence of prosthetic heart valve; Z87.891 Personal history of nicotine dependence; Z79.899 Other long term (current) drug therapy; Z79.890 Hormone replacement therapy; E66.01 Morbid (severe) obesity due to excess calories; Z92.3 Personal history of irradiation; M19.90 Unspecified osteoarthritis, unspecified site; I73.9 Peripheral vascular disease, unspecified; I25.10 Atherosclerotic heart disease of native coronary artery without angina pectoris; D64.9 Anemia, unspecified

== ENCOUNTER → 2025-02-12 | Outpatient (REF) | payer MEDICARE, OTHER ==
[~2025-02-12] MED LIST changes: +BACI1CAP PO; +CALC1CAP31 PO; +CEFD300CAP PO; +DIGO0.123 PO; +DOXY100T PO; +METO100T5 PO; +PANT20TA6 PO; +SEMA2.4P INJ; +TALK1KIT MC
[2025-02-12 19:31] LABS: HEMATOCRIT 32.3 % (42.0-52.0); HEMOGLOBIN 9.7 g/dl (13.5-17.5); MEAN CORPUSCULAR VOLUME 103.2 fl (80.0-96.0); PLATELET COUNT, AUTOMATED 288 10^3/uL (150-450); RED BLOOD COUNT 3.13 10^6/uL (4.30-6.10); WHITE BLOOD COUNT 10.9 10^3/uL (4.0-10.0)
[2025-02-12 19:37] LABS: ALBUMIN 3.3 G/DL (3.2-5.2); ALKALINE PHOSPHATASE 81 U/L (40-129); ALT/SGPT < 9 U/L (7.0-40); AST/SGOT 19 U/L (<34); BILIRUBIN,TOTAL 0.5 MG/DL (0.3-1.2); BLOOD UREA NITROGEN 40 MG/DL (9-23); CALCIUM LEVEL 9.2 MG/DL (8.3-10.6); CARBON DIOXIDE LEVEL 35 MMOL/L (20-31); CHLORIDE LEVEL 96 MMOL/L (98-107); CREATININE FOR GFR 1.63 MG/DL (0.70-1.30); GLOMERULAR FILTRATION RATE 43.9 (>42); GLUCOSE, FASTING 112 MG/DL (74-106); IRON (FE) 34 UG/DL (65-175); PERCENT SATURATION 12.5 % (19.7-50.0); POTASSIUM SERUM 4.2 MMOL/L (3.5-5.1); SODIUM LEVEL 140 MMOL/L (136-145); TOTAL IRON BINDING CAPACITY 273 UG/DL (250-425); TOTAL PROTEIN 7.1 G/DL (5.7-8.2)
[2025-02-12 19:40] LABS: FERRITIN 148.3 NG/ML (10.5-307.3)
[2025-02-12 19:47] LABS: HEMOGLOBIN A1c 4.6 % (4.0-6.0)
== END ==
LOC: M SFHCADAM 14:14
PROVIDERS: ATTEND Family Medicine
DX: Z00.00 Encounter for general adult medical examination without abnormal findings (principal); N18.32 Chronic kidney disease, stage 3b; D50.9 Iron deficiency anemia, unspecified; I50.9 Heart failure, unspecified; R73.03 Prediabetes

== ENCOUNTER → 2025-04-18 | Outpatient (REF) | payer MEDICARE, OTHER ==
[~2025-04-18] MED LIST changes: +ALBU8.5H INH; +AMMO12CR4 TOP; -AMMO12CR7 TOP; +NYST0.1C TOP; +POTA1TAB23 PO
[2025-04-18 17:20] LABS: CALCIUM LEVEL 9.1 MG/DL (8.3-10.6); CREATININE FOR GFR 1.37 MG/DL (0.70-1.30); GLOMERULAR FILTRATION RATE 54.1 (>42); POTASSIUM SERUM 4.3 MMOL/L (3.5-5.1)
[2025-04-18 17:21] LABS: BASO # 0.1 10^3/uL (0.0-0.2); BASO % 0.8 % (0.0-1.0); EOS # 0.7 10^3/uL (0.0-0.5); EOS % 7.2 % (0.0-3.0); HEMATOCRIT 29.4 % (42.0-52.0); HEMOGLOBIN 8.1 g/dl (13.5-17.5); LYMPH # 0.9 10^3/uL (1.5-5.0); LYMPH % 9.5 % (24.0-44.0); MEAN CORPUSCULAR HEMOGLOBIN 28.5 pg (27.0-33.0); MEAN CORPUSCULAR HGB CONC 27.6 g/dl (32.0-36.5); MEAN CORPUSCULAR VOLUME 103.5 fl (80.0-96.0); MONO # 0.6 10^3/uL (0.0-0.8); MONO % 5.8 % (2.0-8.0); NEUTROPHILS # 7.3 10^3/uL (1.5-8.5); NEUTROPHILS % 75.3 % (36.0-66.0); PLATELET COUNT, AUTOMATED 325 10^3/uL (150-450); RED BLOOD COUNT 2.84 10^6/uL (4.30-6.10); WHITE BLOOD COUNT 9.7 10^3/uL (4.0-10.0)
== END ==
LOC: M SFHCADAM 11:51
PROVIDERS: ATTEND Physician Assistant Medical
DX: I49.5 Sick sinus syndrome (principal); D63.8 Anemia in other chronic diseases classified elsewhere; N18.32 Chronic kidney disease, stage 3b

== ENCOUNTER → 2025-05-08 | Outpatient (CLI) | payer MEDICARE, OTHER ==
[2025-05-08 17:26] LABS: PLATELET COUNT, AUTOMATED 287 10^3/uL (150-450)
[2025-05-08 18:00] LABS: IRON (FE) 40.0 UG/DL (65-175); PERCENT SATURATION 12.6 % (19.7-50.0); VITAMIN B12 LEVEL 450.0 PG/ML (211-911)
== END ==
LOC: M PLALAB 14:44
PROVIDERS: ATTEND Physician Assistant Medical
DX: D64.9 Anemia, unspecified (principal)

== ENCOUNTER 2025-07-04 13:56 | Outpatient (CLI) | payer MEDICARE, OTHER ==
[~2025-07-04] VITALS: Ht 177.8 cm; Wt 122.7 kg
[~2025-07-04 13:56] MED LIST changes: +ALBUTEROL SULFATE 2.5 MG/0.5 ML INH CONCENTRATE NEB SOLN INH PRN; +EPINEPHrine INJ 1 MG/ML 1ML AMP IM PRN; -ZOLP5TAB PO; +ZOLP5TAB9 PO; +diphenhydrAMINE 50 MG/ML VIAL IV PRN
[2025-07-04 14:05] VITALS: BP 132/63; O2SAT 98
[2025-07-04] MEDS: IRON SUCROSE 300 MG in NS 250 ML OVER 90 MIN. IV ONE (14:13)
== END 2025-07-04 15:50 | disposition home or self-care (01) ==
LOC: M INFU 13:56
PROVIDERS: ATTEND Family Medicine
DX: N18.32 Chronic kidney disease, stage 3b (principal); D63.8 Anemia in other chronic diseases classified elsewhere
CPT/HCPCS: 96365; 96366; J1756

== ENCOUNTER 2025-07-11 13:23 | Outpatient (CLI) | payer MEDICARE, OTHER ==
[2025-07-11] MEDS ORDERED: IRON SUCROSE 300 MG in NS 250 ML IV ONE (14:00)
[2025-07-11 14:05] VITALS: BP 134/64; O2SAT 95
[2025-07-11] MEDS: IRON SUCROSE 300 MG in NS 250 ML IV ONE (14:32)
[2025-07-11 16:19] VITALS: BP 144/65; O2SAT 100
== END 2025-07-11 16:45 | disposition home or self-care (01) ==
LOC: M INFU 13:23
PROVIDERS: ATTEND Family Medicine
DX: N18.32 Chronic kidney disease, stage 3b (principal); D63.8 Anemia in other chronic diseases classified elsewhere
CPT/HCPCS: 96365; 96366; J1756

== ENCOUNTER 2025-07-19 13:26 | Outpatient (CLI) | payer MEDICARE, OTHER ==
[~2025-07-19] VITALS: Ht 175.3 cm; Wt 122.7 kg
[2025-07-19 14:00] VITALS: BP 142/81; O2SAT 95
[2025-07-19] MEDS: IRON SUCROSE 300 MG in NS 250 ML OVER 90 MIN. IV ONE (14:17)
[2025-07-19 16:01] VITALS: BP 124/68; O2SAT 98
== END 2025-07-19 16:10 | disposition home or self-care (01) ==
LOC: M INFU 13:26
PROVIDERS: ATTEND Family Medicine
DX: N18.32 Chronic kidney disease, stage 3b (principal); D63.8 Anemia in other chronic diseases classified elsewhere
CPT/HCPCS: 96365; 96366; J1756

== ENCOUNTER → 2025-08-02 | Outpatient (CLI) | payer MEDICARE, OTHER ==
[~2025-08-02] MED LIST changes: -ALBUTEROL SULFATE 2.5 MG/0.5 ML INH CONCENTRATE NEB SOLN INH PRN; -EPINEPHrine INJ 1 MG/ML 1ML AMP IM PRN; +FLON1SPR NARES; +LORA-1042 PO; -diphenhydrAMINE 50 MG/ML VIAL IV PRN
[2025-08-02 15:37] LABS: AMORPHOUS SEDIMENT MODERATE (NEGATIVE); APPEARANCE, URINE CLOUDY (CLEAR); BACTERIA, URINE AUTO NEGATIVE (NEGATIVE); BILIRUBIN, URINE AUTO NEGATIVE (NEGATIVE); BLOOD, URINE BLOOD 1+ (NEGATIVE); GLUCOSE, URINE (UA) AUTO NEGATIVE (NEGATIVE); KETONE, URINE AUTO NEGATIVE (NEGATIVE); LEUKOCYTE ESTERASE, URINE AUTO 2+ (NEGATIVE); NITRITE, URINE AUTO NEGATIVE (NEGATIVE); PROTEIN, URINE AUTO 2+ mg/dL (NEGATIVE); RBC, URINE AUTO 23 /HPF (0-3); SPECIFIC GRAVITY URINE AUTO 1.012 (1.002-1.035); SQUAMOUS EPITHELIAL CELL UR AU 0 /HPF (0-6); UROBILINOGEN, URINE AUTO 0.2 mg/dL (0.0-2.0); WBC, URINE AUTO 92 /HPF (0-3)
[2025-08-02 15:38] LABS: ALT/SGPT 9.0 U/L (7.0-40); AST/SGOT 23.0 U/L (<34); CALCIUM LEVEL 9.4 MG/DL (8.3-10.6); CARBON DIOXIDE LEVEL 39.0 MMOL/L (20-31); CHLORIDE LEVEL 96.0 MMOL/L (98-107); CREATININE FOR GFR 1.97 MG/DL (0.70-1.30); GLOMERULAR FILTRATION RATE 35.0 (>42); IRON (FE) 43.0 UG/DL (65-175); PERCENT SATURATION 14.1 % (19.7-50.0); POTASSIUM SERUM 5.0 MMOL/L (3.5-5.1); PROSTATIC SPECIFIC AG MONITOR 0.04 NG/ML (< 4.00); SODIUM LEVEL 142.0 MMOL/L (136-145)
[2025-08-02 15:39] LABS: FREE T4 1.71 NG/DL (0.89-1.76)
[2025-08-02 15:40] LABS: PLATELET COUNT, AUTOMATED 306 10^3/uL (150-450)
== END ==
LOC: M PLALAB 11:37
PROVIDERS: ATTEND Family Medicine
DX: M51.34 Other intervertebral disc degeneration, thoracic region (principal); S22.32XA Fracture of one rib, left side, initial encounter for closed fracture; J98.4 Other disorders of lung; J90 Pleural effusion, not elsewhere classified; R07.89 Other chest pain; R06.02 Shortness of breath; N18.32 Chronic kidney disease, stage 3b; D50.9 Iron deficiency anemia, unspecified; E03.9 Hypothyroidism, unspecified; I50.9 Heart failure, unspecified; C61 Malignant neoplasm of prostate; Z79.899 Other long term (current) drug therapy; X58.XXXA Exposure to other specified factors, initial encounter; Y92.9 Unspecified place or not applicable; Y93.9 Activity, unspecified; Y99.9 Unspecified external cause status

== ENCOUNTER 2025-08-12 11:13 | Inpatient (IN) | payer MEDICARE, OTHER ==
[~2025-08-12] VITALS: Ht 172.7 cm; Wt 119.0 kg
[~2025-08-12 11:13] MED LIST changes: -FLON1SPR NARES; -LORA-1042 PO
[2025-08-12 12:23] LABS: BASO # 0.0 10^3/uL (0.0-0.2); BASO % 0.4 % (0.0-1.0); EOS # 0.1 10^3/uL (0.0-0.5); EOS % 1.2 % (0.0-3.0); LYMPH # 0.8 10^3/uL (1.5-5.0); LYMPH % 8.3 % (24.0-44.0); MONO # 0.6 10^3/uL (0.0-0.8); MONO % 6.7 % (2.0-8.0); NEUTROPHILS # 7.3 10^3/uL (1.5-8.5); NEUTROPHILS % 81.5 % (36.0-66.0); PLATELET COUNT, AUTOMATED 284 10^3/uL (150-450)
[2025-08-12 12:46] LABS: CK-MB VALUE MASS < 1.0 NG/ML (<3.6)
[2025-08-12 12:49] LABS: ALT/SGPT 10 U/L (7.0-40); AST/SGOT 35 U/L (<34); CALCIUM LEVEL 9.3 MG/DL (8.3-10.6); CARBON DIOXIDE LEVEL 36 MMOL/L (20-31); CHLORIDE LEVEL 97 MMOL/L (98-107); CREATININE FOR GFR 1.90 MG/DL (0.70-1.30); GLOMERULAR FILTRATION RATE 36.6 (>42); POTASSIUM SERUM 4.9 MMOL/L (3.5-5.1); SODIUM LEVEL 142 MMOL/L (136-145)
[2025-08-12 12:56] LABS: CPK CREATINE PHOSPHOKINASE 36 U/L (46-171)
[2025-08-12 14:00] LABS: ABG BASE EXCESS 8.2 (-2.0-2.0); ABG HCO3 37.1 MMOL/L (22.0-26.0); ABG O2 SATURATION 92.7 % (95.0-99.0); ABG PARTIAL PRESSURE O2 72.9 mmHg (75.0-100.0); ABG STANDARD HCO3 31.9 MMOL/L. (22.0-26.0); ABG TOTAL CO2 39.7 MMOL/L (23.0-31.0); ABG pH (ARTERIAL) 7.254 UNITS (7.350-7.450)
[2025-08-12 14:01] LABS: KETONE, URINE AUTO RFX NEGATIVE (NEGATIVE); NITRITE, URINE AUTO RFX NEGATIVE (NEGATIVE); RBC, URINE AUTO RFX 17 /HPF (0-3); SQUAM EPITHELIAL CELL UR AURFX 0 /HPF (0-6)
[2025-08-12 14:03] LABS: ABG PARTIAL PRESSURE CO2 85.7 mmHg (35.0-45.0)
[2025-08-12 14:14] LABS: LEUKOCYTE ESTERASE UR AUTO RFX 2+ (NEGATIVE); WBC, URINE AUTO RFX 150 /HPF (0-3)
[2025-08-12 14:16] LABS: INR 1.71
[2025-08-12] MEDS: PANTOPRAZOLE 40MG VIAL IV ONE (14:18)
[2025-08-12] MEDS: cefTRIAXone SOD 1 GM in DEXTROSE 5% (D5W) ADV/MINI-BAG 50 ML IV ONE (14:18)
[2025-08-12 14:30] LABS: CK-MB VALUE MASS 1.3 NG/ML (<3.6)
[2025-08-12 14:31] LABS: CPK CREATINE PHOSPHOKINASE 29.0 U/L (46-171); MB/CK RELATIVE INDEX 4.48 (< OR =4)
[2025-08-12] MEDS ORDERED: LORA-1042 PO (15:01)
[2025-08-12] MEDS ORDERED: TORS100T PO (15:01)
[2025-08-12] MEDS ORDERED: FLON1SPR NARES (15:01)
[2025-08-12] MEDS ORDERED: PANT20TA51 PO (15:01)
[2025-08-12] MEDS ORDERED: HOME MED LIST COMPLETE! XX SCH (15:05)
[2025-08-12] MEDS: AZITHROMYCIN INJ 500 MG, VIAL MATE ADAPTER 1 EACH in NS 250 ML IV ONE (15:06)
[2025-08-12 16:42] VITALS: BP 122/59; TEMP 96.6; O2SAT 91
[2025-08-12 16:55] VITALS: BP 120/57; TEMP 96.6; O2SAT 92
[2025-08-12 17:10] VITALS: BP 113/59; TEMP 96.6; O2SAT 90
[2025-08-12] MEDS: ACETAMINOPHEN 325 MG TAB PO PRN (17:50)
[2025-08-12] MEDS: BUDESONIDE 0.25 MG/2 ML INHALATION SUSPENSION INH SCH (19:39)
[2025-08-12] MEDS: GLYCOPYRROLATE INJ 0.2 MG/ML 2 ML VIAL NEB SCH (19:39)
[2025-08-12 19:53] LABS: ABG BASE EXCESS 4.2 (-2.0-2.0); ABG HCO3 32.6 MMOL/L (22.0-26.0); ABG O2 SATURATION 93.2 % (95.0-99.0); ABG PARTIAL PRESSURE CO2 75.2 mmHg (35.0-45.0); ABG PARTIAL PRESSURE O2 74.6 mmHg (75.0-100.0); ABG STANDARD HCO3 28.2 MMOL/L. (22.0-26.0); ABG TOTAL CO2 34.9 MMOL/L (23.0-31.0); ABG pH (ARTERIAL) 7.255 UNITS (7.350-7.450)
[2025-08-12] MEDS ORDERED: FUROSEMIDE 40 MG/4 ML VIAL IV SCH (20:10)
[2025-08-12] MEDS ORDERED: ALBUTEROL SULFATE 2.5 MG/0.5 ML INH CONCENTRATE NEB SOLN NEB PRN (20:10)
[2025-08-12] MEDS: APIXABAN 5 MG TAB PO SCH (21:00)
[2025-08-12] MEDS ORDERED: PIPERACILLIN/TAZOBACTAM SOD 4.5 GM in DEXTROSE 5% (D5W) ADV/MINI-BAG 50 ML IV SCH (21:00)
[2025-08-12] MEDS: PIPERACILLIN/TAZOBACTAM SOD 4.5 GM in DEXTROSE 5% (D5W) ADV/MINI-BAG 50 ML IV SCH (23:18)
[2025-08-12] MEDS: METOPROLOL TARTRATE 100 MG TAB PO SCH (23:36)
[2025-08-12 23:40] LABS: ABG BASE EXCESS 7.2 (-2.0-2.0); ABG HCO3 35.4 MMOL/L (22.0-26.0); ABG O2 SATURATION 96.5 % (95.0-99.0); ABG PARTIAL PRESSURE O2 93.5 mmHg (75.0-100.0); ABG STANDARD HCO3 31.1 MMOL/L. (22.0-26.0); ABG TOTAL CO2 37.7 MMOL/L (23.0-31.0); ABG pH (ARTERIAL) 7.295 UNITS (7.350-7.450)
[2025-08-12 23:47] LABS: ABG PARTIAL PRESSURE CO2 74.5 mmHg (35.0-45.0)
[2025-08-13] MEDS: LEVOTHYROXINE 100 MCG TABLET (0.1 MG) PO SCH (05:27)
[2025-08-13 06:31] LABS: PLATELET COUNT, AUTOMATED 273 10^3/uL (150-450)
[2025-08-13 07:02] LABS: ALT/SGPT < 9 U/L (7.0-40); AST/SGOT 21 U/L (<34); CALCIUM LEVEL 9.3 MG/DL (8.3-10.6); CARBON DIOXIDE LEVEL 34 MMOL/L (20-31); CHLORIDE LEVEL 99 MMOL/L (98-107); CREATININE FOR GFR 1.76 MG/DL (0.70-1.30); GLOMERULAR FILTRATION RATE 40.1 (>42); MAGNESIUM LEVEL 2.6 MG/DL (1.8-2.4); POTASSIUM SERUM 4.7 MMOL/L (3.5-5.1); SODIUM LEVEL 145 MMOL/L (136-145)
[2025-08-13] MEDS: FERROUS SULFATE 325 MG TAB PO SCH (08:06)
[2025-08-13 08:11] LABS: ABG BASE EXCESS 6.5 (-2.0-2.0); ABG HCO3 33.5 MMOL/L (22.0-26.0); ABG O2 SATURATION 94.8 % (95.0-99.0); ABG PARTIAL PRESSURE O2 79.7 mmHg (75.0-100.0); ABG STANDARD HCO3 30.3 MMOL/L. (22.0-26.0); ABG TOTAL CO2 35.4 MMOL/L (23.0-31.0); ABG pH (ARTERIAL) 7.340 UNITS (7.350-7.450)
[2025-08-13] MEDS: FEBUXOSTAT 40 MG TABLET PO SCH (08:14)
[2025-08-13] MEDS: TORSEMIDE 100 MG TAB PO SCH (08:14)
[2025-08-13] MEDS: PANTOPRAZOLE 20 MG TAB PO SCH (08:14)
[2025-08-13 08:15] LABS: ABG PARTIAL PRESSURE CO2 63.5 mmHg (35.0-45.0)
[2025-08-13] MEDS ORDERED: LIDOCAINE 5% PATCH TD ONE (14:55)
[2025-08-13] MEDS: LIDOCAINE 5% PATCH TD SCH (16:30)
[2025-08-13] MEDS: SODIUM CHLORIDE NASAL 0.65% SPRAY BTL (OCEAN) SCH (17:57)
[2025-08-13 22:35] VITALS: BP 137/61; TEMP 98.5; O2SAT 99
[2025-08-14 04:56] LABS: PLATELET COUNT, AUTOMATED 301 10^3/uL (150-450)
[2025-08-14 05:00] VITALS: BP 131/59; TEMP 98.1; O2SAT 95
[2025-08-14 05:25] LABS: ALT/SGPT < 9 U/L (7.0-40); AST/SGOT 19 U/L (<34); CALCIUM LEVEL 8.4 MG/DL (8.3-10.6); CARBON DIOXIDE LEVEL 32 MMOL/L (20-31); CHLORIDE LEVEL 102 MMOL/L (98-107); CREATININE FOR GFR 1.69 MG/DL (0.70-1.30); GLOMERULAR FILTRATION RATE 42.1 (>42); MAGNESIUM LEVEL 2.2 MG/DL (1.8-2.4); POTASSIUM SERUM 3.8 MMOL/L (3.5-5.1); SODIUM LEVEL 144 MMOL/L (136-145)
[2025-08-14 07:52] VITALS: BP 137/65; TEMP 97.7; O2SAT 95
[2025-08-14 09:15] LABS: ABG BASE EXCESS 7.7 (-2.0-2.0); ABG HCO3 33.7 MMOL/L (22.0-26.0); ABG O2 SATURATION 96.4 % (95.0-99.0); ABG PARTIAL PRESSURE CO2 56.0 mmHg (35.0-45.0); ABG PARTIAL PRESSURE O2 86.5 mmHg (75.0-100.0); ABG STANDARD HCO3 31.4 MMOL/L. (22.0-26.0); ABG TOTAL CO2 35.4 MMOL/L (23.0-31.0); ABG pH (ARTERIAL) 7.397 UNITS (7.350-7.450)
[2025-08-14 11:16] VITALS: BP 132/56; TEMP 97.8; O2SAT 95
[2025-08-14 15:42] VITALS: BP 134/58; TEMP 97.9; O2SAT 96
[2025-08-14 20:10] VITALS: BP 121/58; TEMP 98.1; O2SAT 96
[2025-08-14 23:45] VITALS: BP 107/51; TEMP 97.6; O2SAT 92
[2025-08-15] VITALS (8 sets, daily range): BP systolic 106–142; BP diastolic 55–65; TEMP 97–98.6; O2SAT 92–96
[2025-08-15 05:12] LABS: PLATELET COUNT, AUTOMATED 278 10^3/uL (150-450)
[2025-08-15 05:31] LABS: ALT/SGPT 10.0 U/L (7.0-40); AST/SGOT 43.0 U/L (<34); CALCIUM LEVEL 9.1 MG/DL (8.3-10.6); CARBON DIOXIDE LEVEL 32.0 MMOL/L (20-31); CHLORIDE LEVEL 98.0 MMOL/L (98-107); CREATININE FOR GFR 2.04 MG/DL (0.70-1.30); GLOMERULAR FILTRATION RATE 33.6 (>42); MAGNESIUM LEVEL 2.3 MG/DL (1.8-2.4); POTASSIUM SERUM 4.1 MMOL/L (3.5-5.1); SODIUM LEVEL 142.0 MMOL/L (136-145)
[2025-08-15] MEDS: NS (Normal Saline) 0.9% 1,000 ML IV SCH ×2 (09:37→19:00)
[2025-08-15 14:50] LABS: CALCIUM LEVEL 8.8 MG/DL (8.3-10.6); CARBON DIOXIDE LEVEL 34.0 MMOL/L (20-31); CHLORIDE LEVEL 97.0 MMOL/L (98-107); CREATININE FOR GFR 1.85 MG/DL (0.70-1.30); GLOMERULAR FILTRATION RATE 37.8 (>42); POTASSIUM SERUM 4.0 MMOL/L (3.5-5.1); SODIUM LEVEL 142.0 MMOL/L (136-145)
[2025-08-16 04:46] VITALS: BP 139/62; TEMP 97.8; O2SAT 96
[2025-08-16 06:00] LABS: ALT/SGPT 13.0 U/L (7.0-40); AST/SGOT 39.0 U/L (<34); CALCIUM LEVEL 8.8 MG/DL (8.3-10.6); CARBON DIOXIDE LEVEL 31.0 MMOL/L (20-31); CHLORIDE LEVEL 99.0 MMOL/L (98-107); CREATININE FOR GFR 1.83 MG/DL (0.70-1.30); GLOMERULAR FILTRATION RATE 38.2 (>42); MAGNESIUM LEVEL 2.1 MG/DL (1.8-2.4); POTASSIUM SERUM 3.9 MMOL/L (3.5-5.1); SODIUM LEVEL 140.0 MMOL/L (136-145)
[2025-08-16 07:47] VITALS: BP 131/60; TEMP 98.2; O2SAT 94
[2025-08-16 08:34] VITALS: BP 131/60
[2025-08-16] MEDS ORDERED: LEVO1TAB38 PO (08:38)
[2025-08-16 09:44] VITALS: O2SAT 96
== END 2025-08-16 11:08 | disposition home health service (06) | DRG 189 ==
LOC: M ED 11:13 → EDBD 11:13 → M ED INP 15:11 → M PCU 08-13 22:27
PROVIDERS: ADMIT Internal Medicine Pulmonary Disease; ATTEND Student in an Organized Health Care Education/Training Program
PROC: 30233N1 Transfusion of Nonautologous Red Blood Cells into Peripheral Vein, Percutaneous Approach (ICD-10-PCS; principal; 2025-08-12)
DX: J96.22 Acute and chronic respiratory failure with hypercapnia (principal); G93.41 Metabolic encephalopathy; J18.9 Pneumonia, unspecified organism; I48.92 Unspecified atrial flutter; I50.22 Chronic systolic (congestive) heart failure; N39.0 Urinary tract infection, site not specified; S22.42XA Multiple fractures of ribs, left side, initial encounter for closed fracture; J44.0 Chronic obstructive pulmonary disease with (acute) lower respiratory infection; J44.1 Chronic obstructive pulmonary disease with (acute) exacerbation; G89.29 Other chronic pain; I27.20 Pulmonary hypertension, unspecified; E66.01 Morbid (severe) obesity due to excess calories; N18.30 Chronic kidney disease, stage 3 unspecified; I48.91 Unspecified atrial fibrillation; G62.9 Polyneuropathy, unspecified; E03.9 Hypothyroidism, unspecified; I87.2 Venous insufficiency (chronic) (peripheral); I25.10 Atherosclerotic heart disease of native coronary artery without angina pectoris; Z87.891 Personal history of nicotine dependence; D64.9 Anemia, unspecified; K21.9 Gastro-esophageal reflux disease without esophagitis; M10.9 Gout, unspecified; B96.1 Klebsiella pneumoniae [K. pneumoniae] as the cause of diseases classified elsewhere; Z79.01 Long term (current) use of anticoagulants; Z79.890 Hormone replacement therapy; Z79.899 Other long term (current) drug therapy; Z85.46 Personal history of malignant neoplasm of prostate; Z99.81 Dependence on supplemental oxygen; Z85.3 Personal history of malignant neoplasm of breast; Z90.12 Acquired absence of left breast and nipple; Z92.3 Personal history of irradiation; Z92.21 Personal history of antineoplastic chemotherapy; Z96.0 Presence of urogenital implants; J96.21 Acute and chronic respiratory failure with hypoxia; W19.XXXA Unspecified fall, initial encounter; Y92.9 Unspecified place or not applicable; Y93.9 Activity, unspecified; Z68.39 Body mass index [BMI] 39.0-39.9, adult

== ENCOUNTER 2025-08-22 14:50 | Inpatient (IN) | payer MEDICARE, OTHER ==
[2025-08-22] VITALS (12 sets, daily range): BP systolic 86–156; BP diastolic 44–61; TEMP 97.8; O2SAT 92–97
[~2025-08-22] VITALS: Ht 185.4 cm; Wt 118.3 kg
[~2025-08-22 14:50] MED LIST changes: +FLON1SPR NARES; +LEVO1TAB38 PO; +LORA-1042 PO
[2025-08-22 15:41] LABS: BASO # 0.0 10^3/uL (0.0-0.2); BASO % 0.2 % (0.0-1.0); EOS # 0.1 10^3/uL (0.0-0.5); EOS % 0.7 % (0.0-3.0); LYMPH # 0.7 10^3/uL (1.5-5.0); LYMPH % 5.4 % (24.0-44.0); MONO # 0.9 10^3/uL (0.0-0.8); MONO % 7.2 % (2.0-8.0); NEUTROPHILS # 10.4 10^3/uL (1.5-8.5); NEUTROPHILS % 84.8 % (36.0-66.0); PLATELET COUNT, AUTOMATED 306 10^3/uL (150-450)
[2025-08-22] MEDS: [UNRECOGNIZED DRUG - OTHER] IV STA (15:43)
[2025-08-22] MEDS: NS 0.9% IV STA (15:43)
[2025-08-22 16:11] LABS: ABG BASE EXCESS 2.3 (-2.0-2.0); ABG HCO3 32.4 MMOL/L (22.0-26.0); ABG O2 SATURATION 95.0 % (95.0-99.0); ABG PARTIAL PRESSURE O2 90.3 mmHg (75.0-100.0); ABG STANDARD HCO3 26.5 MMOL/L. (22.0-26.0); ABG TOTAL CO2 35.3 MMOL/L (23.0-31.0)
[2025-08-22 16:12] LABS: CPK CREATINE PHOSPHOKINASE < 15 U/L (46-171)
[2025-08-22 16:13] LABS: ALT/SGPT 12.0 U/L (7.0-40); AST/SGOT 28.0 U/L (<34); CALCIUM LEVEL 8.6 MG/DL (8.3-10.6); CARBON DIOXIDE LEVEL 32.0 MMOL/L (20-31); CHLORIDE LEVEL 97.0 MMOL/L (98-107); CK-MB VALUE MASS < 1.0 NG/ML (<3.6); CREATININE FOR GFR 2.45 MG/DL (0.70-1.30); GLOMERULAR FILTRATION RATE 27.0 (>42); POTASSIUM SERUM 4.6 MMOL/L (3.5-5.1); SODIUM LEVEL 139.0 MMOL/L (136-145)
[2025-08-22 16:13] LABS: ABG PARTIAL PRESSURE CO2 93.7 mmHg (35.0-45.0); ABG pH (ARTERIAL) 7.157 UNITS (7.350-7.450)
[2025-08-22 16:15] LABS: THYROXINE (T4) 7.6 UG/DL (4.5-10.9)
[2025-08-22] MEDS: PIPERACILLIN/TAZOBACTAM SOD 4.5 GM in DEXTROSE 5% (D5W) ADV/MINI-BAG 50 ML IV ONE (17:20)
[2025-08-22] MEDS ORDERED: ALBUTEROL 90 MCG/ACT 8 GM HFA INHALER INH PRN (17:30)
[2025-08-22] MEDS ORDERED: HOME MED LIST COMPLETE! XX SCH (17:30)
[2025-08-22] MEDS ORDERED: NOREPINEPHRINE 4MG IN D5 250ML 4 MG in IV 1 EA IV SCH (17:55)
[2025-08-22 18:01] LABS: VENOUS BASE EXCESS 0.2 (-2.0-2.0); VENOUS HCO3 29.5 MMOL/L (23.0-27.0); VENOUS O2 SATURATION 91.3 % (60.0-80.0); VENOUS PARTIAL PRESSURE CO2 78.7 mmHg (38.0-50.0); VENOUS PARTIAL PRESSURE O2 70.1 mmHg (30.0-50.0); VENOUS PH 7.191 UNITS (7.330-7.430); VENOUS STANDARD HCO3 24.6 MMOL/L; VENOUS TOTAL CO2 31.9 MMOL/L (24.0-28.0)
[2025-08-22 18:05] LABS: CK-MB VALUE MASS 1.0 NG/ML (<3.6)
[2025-08-22 18:08] LABS: CPK CREATINE PHOSPHOKINASE 28.0 U/L (46-171); MB/CK RELATIVE INDEX 3.57 (< OR =4)
[2025-08-22] MEDS ORDERED: PILL CUTTER 1 EACH XX ONE (19:09)
[2025-08-22] MEDS: VANCOMYCIN HCL 2,000 MG, VIAL MATE ADAPTER 1 EACH in NS 500 ML IV ONE (20:17)
[2025-08-22] MEDS: METOPROLOL TARTRATE 100 MG TAB PO SCH (21:00)
[2025-08-22] MEDS: GABAPENTIN 300 MG CAP PO SCH (21:00)
[2025-08-22] MEDS: PIPERACILLIN/TAZOBACTAM SOD 4.5 GM in DEXTROSE 5% (D5W) ADV/MINI-BAG 50 ML IV SCH (23:42)
[2025-08-23] VITALS (60 sets, daily range): BP systolic 81–160; BP diastolic 44–73; TEMP 97.2–97.8; O2SAT 86–97
[2025-08-23 04:10] LABS: BASO # 0.0 10^3/uL (0.0-0.2); BASO % 0.1 % (0.0-1.0); EOS # 0.1 10^3/uL (0.0-0.5); EOS % 0.7 % (0.0-3.0); LYMPH # 0.4 10^3/uL (1.5-5.0); LYMPH % 4.4 % (24.0-44.0); MONO # 0.8 10^3/uL (0.0-0.8); MONO % 7.8 % (2.0-8.0); NEUTROPHILS # 8.3 10^3/uL (1.5-8.5); NEUTROPHILS % 84.8 % (36.0-66.0); PLATELET COUNT, AUTOMATED 266 10^3/uL (150-450)
[2025-08-23 04:41] LABS: ALT/SGPT 10.0 U/L (7.0-40); AST/SGOT 19.0 U/L (<34); CALCIUM LEVEL 8.3 MG/DL (8.3-10.6); CARBON DIOXIDE LEVEL 31.0 MMOL/L (20-31); CHLORIDE LEVEL 104.0 MMOL/L (98-107); CREATININE FOR GFR 2.1 MG/DL (0.70-1.30); GLOMERULAR FILTRATION RATE 32.4 (>42); MAGNESIUM LEVEL 2.0 MG/DL (1.8-2.4); PHOSPHORUS LEVEL 3.9 MG/DL (2.4-5.1); POTASSIUM SERUM 4.4 MMOL/L (3.5-5.1); SODIUM LEVEL 145.0 MMOL/L (136-145)
[2025-08-23] MEDS: LEVOTHYROXINE 75 MCG TABLET (0.075 MG) PO SCH (05:56)
[2025-08-23] MEDS: LEVOTHYROXINE 100 MCG TABLET (0.1 MG) PO SCH (05:56)
[2025-08-23 07:44] LABS: VANCOMYCIN RANDOM 21.5 UG/ML
[2025-08-23 08:27] LABS: ABG BASE EXCESS -3.4 (-2.0-2.0); ABG HCO3 26.0 MMOL/L (22.0-26.0); ABG O2 SATURATION 88.7 % (95.0-99.0); ABG PARTIAL PRESSURE O2 65.5 mmHg (75.0-100.0); ABG STANDARD HCO3 21.5 MMOL/L. (22.0-26.0); ABG TOTAL CO2 28.4 MMOL/L (23.0-31.0)
[2025-08-23 08:28] LABS: ABG pH (ARTERIAL) 7.150 UNITS (7.350-7.450)
[2025-08-23 08:29] LABS: ABG PARTIAL PRESSURE CO2 76.5 mmHg (35.0-45.0)
[2025-08-23] MEDS: VANCOMYCIN HCL 1,000 MG, VIAL MATE ADAPTER 1 EACH in NS 250 ML IV SCH (08:46)
[2025-08-23] MEDS: VITAMIN D 1,000 INTERNATIONAL UNITS TABLET PO SCH (09:00)
[2025-08-23] MEDS ORDERED: TORSEMIDE 100 MG TAB PO SCH (09:00)
[2025-08-23] MEDS: CALCITRIOL 0.25 MCG CAP (S0169) PO SCH (09:00)
[2025-08-23] MEDS: FERROUS SULFATE 325 MG TAB PO SCH (09:00)
[2025-08-23] MEDS ORDERED: VANCOMYCIN HCL 1,500 MG, VIAL MATE ADAPTER 1 EACH in NS 500 ML IV SCH (09:00)
[2025-08-23] MEDS: LORATADINE 10 MG TAB PO SCH (09:00)
[2025-08-23] MEDS: FEBUXOSTAT 40 MG TABLET PO SCH (09:00)
[2025-08-23] MEDS: FLUTICASONE PROPIONATE 0.05% NASAL SPRAY 16 GM NARES SCH (09:00)
[2025-08-23] MEDS: FUROSEMIDE 100 MG/10 ML VIAL IV SCH (09:58)
[2025-08-23] MEDS ORDERED: AMIODARONE HCL 150 MG/100 ML PREMIXED BAG As Ordered ONE (10:20)
[2025-08-23] MEDS: AMIODARONE HCL 150 MG in IV 1 EA IV SCH (10:25)
[2025-08-23] MEDS: AMIODARONE HCL 360 MG in IV 1 EA IV SCH ×2 (10:36→16:24)
[2025-08-23] MEDS ORDERED: METOPROLOL 5 MG/5 ML VIAL IV PRN (11:10)
[2025-08-23 11:57] LABS: ABG BASE EXCESS -2.7 (-2.0-2.0); ABG FIO2 40; ABG HCO3 26.2 MMOL/L (22.0-26.0); ABG O2 SATURATION 87.3 % (95.0-99.0); ABG PARTIAL PRESSURE O2 58.9 mmHg (75.0-100.0); ABG STANDARD HCO3 22.0 MMOL/L. (22.0-26.0); ABG TOTAL CO2 28.4 MMOL/L (23.0-31.0)
[2025-08-23 12:03] LABS: ABG pH (ARTERIAL) 7.184 UNITS (7.350-7.450)
[2025-08-23 12:04] LABS: ABG PARTIAL PRESSURE CO2 71.2 mmHg (35.0-45.0)
[2025-08-23] MEDS ORDERED: METOPROLOL 5 MG/5 ML VIAL As Ordered ONE (12:10)
[2025-08-23] MEDS: METOPROLOL 5 MG/5 ML VIAL IV SCH (12:23)
[2025-08-23] MEDS: FUROSEMIDE injection 100 MG, VIAL 2 BAG 13MM ADAPTER 1 EACH in NS 100 ML IV SCH (12:23)
[2025-08-23] MEDS ORDERED: SODIUM CHLORIDE 0.9% INJ 10 ML SYR IV PRN (15:25)
[2025-08-23 15:34] LABS: ABG BASE EXCESS 1.1 (-2.0-2.0); ABG HCO3 28.8 MMOL/L (22.0-26.0); ABG O2 SATURATION 94.3 % (95.0-99.0); ABG PARTIAL PRESSURE O2 74.0 mmHg (75.0-100.0); ABG STANDARD HCO3 25.4 MMOL/L. (22.0-26.0); ABG TOTAL CO2 30.8 MMOL/L (23.0-31.0); ABG pH (ARTERIAL) 7.268 UNITS (7.350-7.450)
[2025-08-23 15:35] LABS: ABG PARTIAL PRESSURE CO2 64.5 mmHg (35.0-45.0)
[2025-08-23] MEDS: SODIUM CHLORIDE 0.9% INJ 10 ML SYR IV SCH (17:52)
[2025-08-23] MEDS: METOPROLOL TARTRATE 100 MG TAB PO ONE (18:13)
[2025-08-23] MEDS: METOPROLOL SUCC. 100 MG *XL* TAB PO SCH (20:46)
[2025-08-23] MEDS ORDERED: METOPROLOL TARTRATE 100 MG TAB PO SCH (21:00)
[2025-08-24] VITALS (49 sets, daily range): BP systolic 80–150; BP diastolic 39–77; TEMP 97.5–98.1; O2SAT 89–100
[2025-08-24 01:18] LABS: ABG BASE EXCESS 2.5 (-2.0-2.0); ABG HCO3 29.7 MMOL/L (22.0-26.0); ABG O2 SATURATION 98.3 % (95.0-99.0); ABG PARTIAL PRESSURE O2 116.4 mmHg (75.0-100.0); ABG STANDARD HCO3 26.7 MMOL/L. (22.0-26.0); ABG TOTAL CO2 31.6 MMOL/L (23.0-31.0); ABG pH (ARTERIAL) 7.302 UNITS (7.350-7.450)
[2025-08-24 01:20] LABS: ABG PARTIAL PRESSURE CO2 61.4 mmHg (35.0-45.0)
[2025-08-24 04:14] LABS: BASO # 0.0 10^3/uL (0.0-0.2); BASO % 0.2 % (0.0-1.0); EOS # 0.0 10^3/uL (0.0-0.5); EOS % 0.3 % (0.0-3.0); LYMPH # 0.4 10^3/uL (1.5-5.0); LYMPH % 2.8 % (24.0-44.0); MONO # 0.8 10^3/uL (0.0-0.8); MONO % 6.0 % (2.0-8.0); NEUTROPHILS # 11.8 10^3/uL (1.5-8.5); NEUTROPHILS % 89.0 % (36.0-66.0); PLATELET COUNT, AUTOMATED 260 10^3/uL (150-450)
[2025-08-24 04:49] LABS: ALT/SGPT < 9 U/L (7.0-40); AST/SGOT 22 U/L (<34); CALCIUM LEVEL 8.0 MG/DL (8.3-10.6); CARBON DIOXIDE LEVEL 31 MMOL/L (20-31); CHLORIDE LEVEL 104 MMOL/L (98-107); CREATININE FOR GFR 1.94 MG/DL (0.70-1.30); GLOMERULAR FILTRATION RATE 35.7 (>42); MAGNESIUM LEVEL 2.0 MG/DL (1.8-2.4); POTASSIUM SERUM 4.0 MMOL/L (3.5-5.1); SODIUM LEVEL 146 MMOL/L (136-145)
[2025-08-24] MEDS: LEVALBUTEROL 1.25 MG 0.5ML CONCENTRATE NEB INH SCH (08:22)
[2025-08-24] MEDS: PANTOPRAZOLE 20 MG TAB PO SCH (08:58)
[2025-08-24] MEDS: METOPROLOL SUCC. 100 MG *XL* TAB PO SCH (08:58)
[2025-08-24] MEDS: AMIODARONE HCL 360 MG in IV 1 EA IV SCH (13:10)
[2025-08-24] MEDS: MAG SULF 1GM/100ML (MAG RUN) 1 GM in IV 1 EA IV ONE (13:11)
[2025-08-24 17:12] LABS: CALCIUM LEVEL 8.7 MG/DL (8.3-10.6); CARBON DIOXIDE LEVEL 31.0 MMOL/L (20-31); CHLORIDE LEVEL 107.0 MMOL/L (98-107); CREATININE FOR GFR 1.99 MG/DL (0.70-1.30); GLOMERULAR FILTRATION RATE 34.6 (>42); MAGNESIUM LEVEL 2.2 MG/DL (1.8-2.4); PHOSPHORUS LEVEL 2.4 MG/DL (2.4-5.1); POTASSIUM SERUM 3.7 MMOL/L (3.5-5.1); SODIUM LEVEL 151.0 MMOL/L (136-145)
[2025-08-24] MEDS: ACETAMINOPHEN *IV* 1,000 MG in IV 1 EA IV ONE (20:41)
[2025-08-24] MEDS: METOPROLOL TARTRATE 100 MG TAB PO ONE (20:46)
[2025-08-25] VITALS (22 sets, daily range): BP systolic 89–133; BP diastolic 44–62; TEMP 97.4–98; O2SAT 90–96
[2025-08-25 06:04] LABS: BASO # 0.1 10^3/uL (0.0-0.2); BASO % 0.4 % (0.0-1.0); EOS # 0.2 10^3/uL (0.0-0.5); EOS % 1.8 % (0.0-3.0); LYMPH # 0.8 10^3/uL (1.5-5.0); LYMPH % 6.8 % (24.0-44.0); MONO # 0.9 10^3/uL (0.0-0.8); MONO % 7.3 % (2.0-8.0); NEUTROPHILS # 10.0 10^3/uL (1.5-8.5); NEUTROPHILS % 82.5 % (36.0-66.0); PLATELET COUNT, AUTOMATED 260 10^3/uL (150-450)
[2025-08-25 06:39] LABS: ALT/SGPT < 9 U/L (7.0-40); AST/SGOT 20 U/L (<34); CALCIUM LEVEL 8.5 MG/DL (8.3-10.6); CARBON DIOXIDE LEVEL 32 MMOL/L (20-31); CHLORIDE LEVEL 102 MMOL/L (98-107); CREATININE FOR GFR 2.38 MG/DL (0.70-1.30); GLOMERULAR FILTRATION RATE 27.9 (>42); MAGNESIUM LEVEL 2.1 MG/DL (1.8-2.4); POTASSIUM SERUM 3.4 MMOL/L (3.5-5.1); SODIUM LEVEL 143 MMOL/L (136-145)
[2025-08-25] MEDS ORDERED: ONDANSETRON 4MG/2ML VIAL IV PRN (07:45)
[2025-08-25] MEDS ORDERED: MORPHINE 4 MG/ML 1 ML VIAL As Ordered ONE (07:46)
[2025-08-25] MEDS: MORPHINE 4 MG/ML 1 ML VIAL IV PRN (08:04)
[2025-08-25] MEDS: SCOPOLAMINE 1MG TRANSDERMAL PATCH TOP PRN (11:31)
== END 2025-08-25 12:00 | disposition expired | DRG 871 ==
LOC: EDBD 14:50 → M ED 14:50 → M ED INP 17:05 → M ICU 19:30
PROVIDERS: ADMIT Internal Medicine Pulmonary Disease; ATTEND Family Medicine
DX: A41.9 Sepsis, unspecified organism (principal); I50.33 Acute on chronic diastolic (congestive) heart failure; G93.41 Metabolic encephalopathy; J96.22 Acute and chronic respiratory failure with hypercapnia; J96.21 Acute and chronic respiratory failure with hypoxia; I48.92 Unspecified atrial flutter; I24.89 Other forms of acute ischemic heart disease; N17.9 Acute kidney failure, unspecified; N13.30 Unspecified hydronephrosis; J98.11 Atelectasis; E87.70 Fluid overload, unspecified; R65.20 Severe sepsis without septic shock; J44.9 Chronic obstructive pulmonary disease, unspecified; I27.20 Pulmonary hypertension, unspecified; N18.30 Chronic kidney disease, stage 3 unspecified; E03.9 Hypothyroidism, unspecified; D64.9 Anemia, unspecified; I73.9 Peripheral vascular disease, unspecified; I25.2 Old myocardial infarction; I48.91 Unspecified atrial fibrillation; I25.10 Atherosclerotic heart disease of native coronary artery without angina pectoris; E78.5 Hyperlipidemia, unspecified; K21.9 Gastro-esophageal reflux disease without esophagitis; M10.9 Gout, unspecified; G47.33 Obstructive sleep apnea (adult) (pediatric); M19.90 Unspecified osteoarthritis, unspecified site; Z95.0 Presence of cardiac pacemaker; Z79.01 Long term (current) use of anticoagulants; Z92.21 Personal history of antineoplastic chemotherapy; G62.9 Polyneuropathy, unspecified; Z85.3 Personal history of malignant neoplasm of breast; Z92.3 Personal history of irradiation; Z85.46 Personal history of malignant neoplasm of prostate; Z79.899 Other long term (current) drug therapy; Z79.890 Hormone replacement therapy; Z51.5 Encounter for palliative care